=== PATIENT | male | born 1965 | race American Indian/Alaskan Native ===

== ENCOUNTER 2019-06-09 13:47 | Emergency (ER) | payer SELFPAY ==
[2019-06-09 14:08] VITALS: BP 118/87
--- NOTE | 2019-06-09 14:09 | Emergency Department Report ---
ED Asthma HPI - General Chief Complaint: Adult Asthma Stated Complaint: ASTHMA Time Seen by Provider: 06/09/19 13:49 Source: patient Mode of arrival: Ambulatory Limitations: No Limitations - History of Present Illness Initial Comments: This is a 53-year-old male nontoxic, well nourished in appearance, no acute signs of distress presents to the ED with c/o of acute on chronic asthma exacerbation. Patient stated he is out of her albuterol inhaler 1 month. Patient stated he receveid a breathing treatment in the ambulance and symptoms has resolved and subsided and now just requesting for albuerol inhaler refill. Patient denies any cough. Patient denies any sick contact. Patient denies any recent travels, long car, recent hospital stays. Patient denies any calf pain or calf tenderness. Patient denies any chest pain, short of breath, fever, chills, nausea, vomiting, hemoptysis, numbness, tingling, headache or stiff neck. Past medical history includes asthma. MD Complaint: shortness of breath, wheezing -: days(s) Asthma History: childhood onset Severity: mild Context: none known Associated Symptoms: none Treatments Prior to Arrival: inhaled bronchodilator - Related Data Current Asthma Therapy: none Previous Rx's Medication Instructions Recorded Last Taken Type Albuterol INH(or & Nicu Only) 2 puff IH QID PRN #8.5 gram 06/09/19 Unknown Rx [ProAir HFA Inhaler] Allergies Allergy/AdvReac Type Severity Reaction Status Date / Time No Known Allergies Allergy Unverified 06/09/19 13:54 ED Review of Systems ROS: Stated complaint: ASTHMA Other details as noted in HPI Constitutional: denies: chills, fever Eyes: denies: eye pain, eye discharge, vision change ENT: denies: ear pain, throat pain Respiratory: shortness of breath, wheezing. denies: cough Cardiovascular: denies: chest pain, palpitations Endocrine: no symptoms reported Gastrointestinal: denies: abdominal pain, nausea, diarrhea Genitourinary: denies: urgency, dysuria Musculoskeletal: denies: back pain, joint swelling, arthralgia Skin: denies: rash, lesions Neurological: denies: headache, weakness, paresthesias Psychiatric: denies: anxiety, depression Hematological/Lymphatic: denies: easy bleeding, easy bruising ED Past Medical Hx - Past Medical History Previous Medical History?: Yes Hx Diabetes: Yes Hx Asthma: Yes - Medications Home Medications: Home Medications Medication Instructions Recorded Confirmed Last Taken Type Albuterol INH(or & Nicu Only) 2 puff IH QID PRN #8.5 gram 06/09/19 Unknown Rx [ProAir HFA Inhaler] ED Physical Exam - General Limitations: No Limitations General appearance: alert, in no apparent distress - Head Head exam: Present: atraumatic, normocephalic - Eye Eye exam: Present: normal appearance - Neck Neck exam: Present: normal inspection, full ROM. Absent: tenderness, meningismus, lymphadenopathy - Respiratory Respiratory exam: Present: normal lung sounds bilaterally. Absent: respiratory distress, wheezes, rales, rhonchi, stridor, chest wall tenderness, accessory muscle use, decreased breath sounds, prolonged expiratory - Cardiovascular Cardiovascular Exam: Present: regular rate, normal rhythm, normal heart sounds. Absent: bradycardia, tachycardia, irregular rhythm, systolic murmur, diastolic murmur, rubs, gallop - Extremities Exam Extremities exam: Present: normal inspection - Back Exam Back exam: Present: normal inspection - Neurological Exam Neurological exam: Present: alert, oriented X3, normal gait - Psychiatric Psychiatric exam: Present: normal affect, normal mood - Skin Skin exam: Present: warm, dry, intact, normal color. Absent: rash ED Course - Reevaluation(s) Reevaluation #1: 06/09/19 14:09 Patient is speaking in full sentences with no signs of distress noted. ED Medical Decision Making - Medical Decision Making This is a 53-year-old male that presents with asthma exacerbation. Patient is stable and was examined by me. Patient did receive breathing treatment in EMS which patient the symptoms has resolved and subsided. Posttreatment and there is no wheezing upon auscultation. Patient is discharged with albuterol. Patient was referred to Follow-up with a primary care doctor in 3-5 days or if symptoms worsen and continue return to emergency room as soon as possible. At time of discharge, the patient does not seem toxic or ill in appearance. No acute signs of distress noted. Patient agrees to discharge treatment plan of care. No further questions noted by the patient. This chart is dictated with using [employer] Critical care attestation.: If time is entered above; I have spent that time in minutes in the direct care of this critically ill patient, excluding procedure time. ED Disposition Clinical Impression: Asthma exacerbation Qualifiers: Asthma severity: mild Disposition: DC-01 TO HOME OR SELFCARE Is pt being admited?: No Does the pt Need Aspirin: No Condition: Stable Instructions: Asthma (ED) Additional Instructions: Follow-up with a primary care doctor in 3-5 days or if symptoms worsen and continue return to emergency room as soon as possible. Prescriptions: Albuterol INH(or & Nicu Only) [ProAir HFA Inhaler] 2 puff IH QID PRN #8.5 gram PRN Reason: Shortness Of Breath Referrals: PRIMARY MD BRANDEN [Primary Care Provider] - 3-5 Days MYA WILSON MD [Staff Physician] - 3-5 Days [facility] [Provider Group] - 3-5 Days
== END 2019-06-09 14:30 | disposition home or self-care (01) ==
LOC: ED 13:47
DX: J45.901 Unspecified asthma with (acute) exacerbation (principal); E11.9 Type 2 diabetes mellitus without complications; Z79.899 Other long term (current) drug therapy
CPT/HCPCS: 99282

== ENCOUNTER 2019-06-28 05:13 | Emergency (ER) | payer SELFPAY ==
--- NOTE | 2019-06-28 05:35 | Emergency Department Report ---
Blank Doc - Documentation Documentation: Patient is a 53-year-old F [place] male who is presenting with asthma exacerb ation. Patient states symptoms are consistent with his asthma. He received 10 of albuterol 4 mg of magnesium Solu-Medrol prior to arrival. Patient is continued to have wheezing and tightness of the chest. Additional 7.5 of albuterol and 1 of Atrovent has been added and will will monitor the patient.
[2019-06-28] MEDS: ALBUTEROL 2.5 MG/3 ML NEBU IH ONE (05:54)
[2019-06-28] MEDS: IPRATROPIUM 0.02% NEBU 2.5 ML IH ONE (05:54)
[2019-06-28 05:57] LABS: Basophils % (Auto) 0.3 % (0.0-1.8); Eosinophils # (Auto) 0.3 K/mm3 (0.0-0.4); Eosinophils % (Auto) 3.4 % (0.0-4.3); Hematocrit 44.2 % (35.5-45.6); Hemoglobin 14.5 gm/dl (11.8-15.2); Lymphocytes # (Auto) 1.2 K/mm3 (1.2-5.4); Lymphocytes % (Auto) 14.5 % (13.4-35.0); Mean Corpuscular HGB Conc 33 % (32-34); Mean Corpuscular Volume 85 fl (84-94); Monocytes # (Auto) 0.4 K/mm3 (0.0-0.8); Monocytes % (Auto) 4.3 % (0.0-7.3); Platelet Count 188 K/mm3 (140-440); Red Blood Count 5.19 M/mm3 (3.65-5.03); Red Cell Distribution Width 13.4 % (13.2-15.2)
[2019-06-28 06:18] LABS: BUN/Creatinine Ratio 11; Blood Urea Nitrogen 12 mg/dL (9-20); Calcium 9.1 mg/dL (8.4-10.2); Hemolysis Index 2
[2019-06-28] MEDS ORDERED: EPINEPHrine/PF (1:1,000) 1 MG/1 ML INJ SUB-Q ONE (06:27)
[2019-06-28] MEDS ORDERED: SODIUM CHLORIDE 0.9% 500 ML 500 ML IV ONE (06:28)
--- NOTE | 2019-06-28 06:31 | Emergency Department Report ---
ED General Adult HPI - General Chief complaint: Adult Asthma Stated complaint: CRISTIANE PUI?: No Time Seen by Provider: 06/28/19 05:30 Source: patient, EMS ( EMS documentation not available at time of chart dictation ), RN notes reviewed, old records reviewed Mode of arrival: Wheelchair Limitations: No Limitations - History of Present Illness Initial comments: Patient is a 53-year-old gentleman who is not known to myself previously, states multiple recent negative tests for coronavirus, denies DVT and pulmonary embolism risk factors, has a past history of asthma and allergies, presenting to the ER with his reported typical asthma exacerbation secondary to allergies. He denies physical pain at this time. There is no complaint of headache, neck pain, chest pain, abdominal pain, urinary symptom, extremity weakness and or num bness, or pharyngeal pain. He was treated with steroids, magnesium, inhaler therapy prior to my personal evaluation. He reports moderate improvement in symptoms, but is still wheezing. There is no posterior leg pain and or leg swelling. Wheezing and shortness of breath have been constant for the past day and a half, they decreased with rest, medication, and worsened with exertion, and exposure to allergens. -: days(s) Severity scale (0 -10): 0 Quality: other Consistency: other Improves with: other Worsens with: other Associated Symptoms: other - Related Data Previous Rx's Medication Instructions Recorded Last Taken Type Albuterol INH(or & Nicu Only) 2 puff IH QID PRN #8.5 gram 06/09/19 Unknown Rx [ProAir HFA Inhaler] Albuterol Sulfate [Proair 90 mcg IH Q4HR PRN #2 aer.pow.ba 06/28/19 Unknown Rx Respiclick] Cetirizine HCl [Zyrtec 10mg tab] 10 mg PO QDAY #30 tablet 06/28/19 Unknown Rx EPINEPHrine [Epipen 2-Surinder] 0.3 mg IM DAILY PRN #2 ml 06/28/19 Unknown Rx predniSONE [Deltasone] 40 mg PO QDAY #8 tab 06/28/19 Unknown Rx Allergies Allergy/AdvReac Type Severity Reaction Status Date / Time No Known Allergies Allergy Unverified 06/09/19 13:54 ED Review of Systems ROS: Stated complaint: CRISTIANE Other details as noted in HPI Constitutional: denies: fever, malaise ENT: congestion Respiratory: shortness of breath, wheezing. denies: cough Cardiovascular: denies: syncope Gastrointestinal: denies: abdominal pain Genitourinary: as per HPI Musculoskeletal: as per HPI Skin: as per HPI Neurological: as per HPI Psychiatric: as per HPI Hematological/Lymphatic: as per HPI ED Past Medical Hx - Past Medical History Previous Medical History?: Yes Hx Diabetes: Yes Hx Asthma: Yes - Surgical History Past Surgical History?: No - Social History Smoking Status: Never Smoker - Medications Home Medications: Home Medications Medication Instructions Recorded Confirmed Last Taken Type Albuterol INH(or & Nicu Only) 2 puff IH QID PRN #8.5 gram 06/09/19 Unknown Rx [ProAir HFA Inhaler] Albuterol Sulfate [Proair 90 mcg IH Q4HR PRN #2 aer.pow.ba 06/28/19 Unknown Rx Respiclick] Cetirizine HCl [Zyrtec 10mg tab] 10 mg PO QDAY #30 tablet 06/28/19 Unknown Rx EPINEPHrine [Epipen 2-Surinder] 0.3 mg IM DAILY PRN #2 ml 06/28/19 Unknown Rx predniSONE [Deltasone] 40 mg PO QDAY #8 tab 06/28/19 Unknown Rx ED Physical Exam - General Limitations: No Limitations General appearance: alert, in no apparent distress - Head Head exam: Present: atraumatic, normocephalic - Eye Eye exam: Present: normal appearance, EOMI. Absent: nystagmus - ENT ENT exam: Present: normal exam, normal external ear exam - Neck Neck exam: Present: normal inspection, full ROM. Absent: tenderness, meningismus - Respiratory Respiratory exam: Present: wheezes, rhonchi. Absent: respiratory distress, rales, stridor - Cardiovascular Cardiovascular Exam: Present: normal rhythm, tachycardia, normal heart sounds. Absent: systolic murmur, diastolic murmur, rubs, gallop - GI/Abdominal GI/Abdominal exam: Present: soft. Absent: distended, tenderness, guarding, rebound, rigid, pulsatile mass - Rectal Rectal exam: Present: deferred - Extremities Exam Extremities exam: Present: normal inspection, full ROM, other (2+ pulses noted in the bilateral upper and lower extremities. There is no palpable cord. negative Homans sign. Muscular compartments are soft. The pelvis is stable.). Absent: pedal edema, calf tenderness - Back Exam Back exam: Present: normal inspection. Absent: tenderness, CVA tenderness (R), CVA tenderness (L), paraspinal tenderness, vertebral tenderness - Neurological Exam Neurological exam: Present: alert, other (No facial droop. Tongue midline. Extraocular movements intact bilaterally. Facial sensation intact to light touch in V1, V2, V3 distribution bilaterally. 5 and a 5 strength in 4 extremities. Sensation intact to light touch in 4 extremities.). Absent: motor sensory deficit - Psychiatric Psychiatric exam: Present: normal affect, normal mood - Skin Skin exam: Present: warm, dry, intact, normal color. Absent: rash ED Course Vital Signs 06/28/19 06/28/19 06/28/19 05:14 05:21 05:26 Temperature 98.8 F 98.4 F Pulse Rate 126 H 111 H Pulse Rate [ Bilateral] Respiratory 20 20 20 Rate Respiratory Rate [Bilateral ] Blood Pressure 152/90 Blood Pressure 138/88 [Left] O2 Sat by Pulse 97 97 95 Oximetry 06/28/19 05:56 Temperature Pulse Rate Pulse Rate [ 105 H Bilateral] Respiratory Rate Respiratory 22 Rate [Bilateral ] Blood Pressure Blood Pressure [Left] O2 Sat by Pulse Oximetry - Reevaluation(s) Reevaluation #1: 06/28/19 06:30 Differential diagnosis, including but not limited to: Asthma, seasonal allergies Assessment and plan: 53-year-old gentleman, without fever, cough, reports multiple negative recent tests for coronavirus, history of chronic allergies, and asthma, presenting to the ER today with a complaint of painless shortness of breath, wheezing, denies DVT and pulmonary embolism risk factors, appears to be fairly comfortable on the stretcher, playing on his cellular phone, although still wheezing. He is still receiving nebulizer therapy. He was given steroids and magnesium prior to my personal evaluation. We will continue to treat him, give subcutaneous epinephrine, and reassess. Tachycardia likely secondary to the aforementioned interventions. 06/28/19 06:31 Laboratory studies were sent prior to my personal evaluation. Reevaluation #2: 06/28/19 07:31 Patient reassessed. Sleeping on the stretcher. Work of breathing improved. Wheezing improved. States he feels ready to go. Does not require epinephrine at this time. Return precautions are reviewed ED Medical Decision Making - Lab Data Result diagrams: 06/28/19 05:43 06/28/19 05:43 Vital Signs 06/28/19 06/28/19 06/28/19 05:14 05:21 05:26 Temperature 98.8 F 98.4 F Pulse Rate 126 H 111 H Pulse Rate [ Bilateral] Respiratory 20 20 20 Rate Respiratory Rate [Bilateral ] Blood Pressure 152/90 Blood Pressure 138/88 [Left] O2 Sat by Pulse 97 97 95 Oximetry 06/28/19 05:56 Temperature Pulse Rate Pulse Rate [ 105 H Bilateral] Respiratory Rate Respiratory 22 Rate [Bilateral ] Blood Pressure Blood Pressure [Left] O2 Sat by Pulse Oximetry Lab Results 06/28/19 06/28/19 Range/Units 05:43 05:43 WBC 8.6 (4.5-11.0) K/mm3 RBC 5.19 H (3.65-5.03) M/mm3 Hgb 14.5 (11.8-15.2) gm/dl Hct 44.2 (35.5-45.6) % MCV 85 (84-94) fl MCH 28 (28-32) pg MCHC 33 (32-34) % RDW 13.4 (13.2-15.2) % Plt Count 188 (140-440) K/mm3 Lymph % (Auto) 14.5 (13.4-35.0) % [place] % (Auto) 4.3 (0.0-7.3) % Eos % (Auto) 3.4 (0.0-4.3) % Baso % (Auto) 0.3 (0.0-1.8) % Lymph # 1.2 (1.2-5.4) K/mm3 [place] # 0.4 (0.0-0.8) K/mm3 Eos # 0.3 (0.0-0.4) K/mm3 Baso # 0.0 (0.0-0.1) K/mm3 Seg Neutrophils % 77.5 H (40.0-70.0) % Seg Neutrophils # 6.7 (1.8-7.7) K/mm3 Sodium 147 H (137-145) mmol/L Potassium 3.6 (3.6-5.0) mmol/L Chloride 106.0 (98-107) mmol/L Carbon Dioxide 28 (22-30) mmol/L Anion Gap 17 mmol/L BUN 12 (9-20) mg/dL Creatinine 1.1 (0.8-1.5) mg/dL Estimated GFR > 60 ml/min BUN/Creatinine Ratio 11 % Glucose 173 H (75-100) mg/dL Calcium 9.1 (8.4-10.2) mg/dL Critical Care Time: Yes Critical care time in (mins) excluding proc time.: 35 Critical care attestation.: If time is entered above; I have spent that time in minutes in the direct care of this critically ill patient, excluding procedure time. ED Disposition Clinical Impression: Reactive airway disease Qualifiers: Asthma severity: unspecified severity Asthma persistence: unspecified Asthma complication type: uncomplicated Qualified Code(s): J45.909 - Unspecified asthma, uncomplicated Disposition: TO HOME OR SELFCARE Is pt being admited?: No Does the pt Need Aspirin: No Condition: Stable Instructions: Asthma (ED) Additional Instructions: Make certain to wash hands with soap and water often and frequently. Do not touch hands to face, eyes, or mouth. Take the prescribed medications as needed and directed. Follow-up with a primary care doctor within the next 5 to 7 days for repeat checkup and evaluation. Return to the emergency room right away with new, worsened or different symptoms, or symptoms not present on the initial emergency room evaluation. Return to the emergency room right away with projectile vomiting, change in mental status, confusion, inability to speak, inability to breathe, or severe shortness of breath. Use epinephrine pen if patient develops inability to speak, or inability to breathe. If any of these symptoms develop, use the epinephrine pen as directed, and contact emergency medical services right away. Referrals: JIMENA PIEMNTEL MD [Primary Care Provider] - 3-5 Days MYA WILSON MD [Staff Physician] - 3-5 Days
[2019-06-28 08:06] VITALS: BP 114/80
== END 2019-06-28 08:04 | disposition home or self-care (01) ==
LOC: ED 05:13
DX: J45.909 Unspecified asthma, uncomplicated (principal); E11.9 Type 2 diabetes mellitus without complications; Z79.899 Other long term (current) drug therapy
CPT/HCPCS: 36415; 80048; 85025; 94644

== ENCOUNTER 2019-10-23 10:51 | Emergency (ER) | payer SELFPAY ==
[2019-10-23 11:10] VITALS: BP 113/77
--- NOTE | 2019-10-23 11:44 | Emergency Department Report ---
ED ENT HPI - General Chief complaint: Earache Stated complaint: EAR INFECTION Time Seen by Provider: 10/23/19 11:23 Source: patient Mode of arrival: Ambulatory Limitations: No Limitations - History of Present Illness Initial comments: 54-year-old -Iranian male presents to the emergency room for left ear drainage for 3 days. Patient denies any pain. Patient denies any fever. Denies any trauma. He does report a history of diabetes on insulin does not have a primary care provider. He does check his blood sugar was 130 this morning. He has no known drug allergies. Onset/Timin -: days(s) Location: L ear Severity: mild Improves with: none Worsens with: none Associated Symptoms: hearing loss. denies: fever, pain with swallowing, sore throat, tinnitus - Related Data Previous Rx's Medication Instructions Recorded Last Taken Type Albuterol Mdi (or & Nicu Only) 2 puff IH QID PRN #8.5 gram 06/09/19 Unknown Rx [ProAir HFA Inhaler] Albuterol Sulfate [Proair 90 mcg IH Q4HR PRN #2 aer.pow.ba 06/28/19 Unknown Rx Respiclick] Cetirizine HCl [Zyrtec 10mg tab] 10 mg PO QDAY #30 tablet 06/28/19 Unknown Rx EPINEPHrine [Epipen 2-Surinder] 0.3 mg IM DAILY PRN #2 ml 06/28/19 Unknown Rx predniSONE [Deltasone] 40 mg PO QDAY #8 tab 06/28/19 Unknown Rx Ciprofloxacin HCl [Ciprofloxacin 500 mg PO Q12HR #20 tab 09/22/19 Unknown Rx TAB] traMADoL [Ultram] 50 mg PO Q6HR PRN #14 tablet 09/22/19 Unknown Rx Amoxicillin/K Clav Tab [Augmentin 1 tab PO Q12HR 7 Days #14 tab 10/23/19 Unknown Rx 875 mg] Allergies Allergy/AdvReac Type Severity Reaction Status Date / Time No Known Allergies Allergy Verified 09/22/19 13:15 ED Dental HPI - General Chief complaint: Earache Stated complaint: EAR INFECTION Time Seen by Provider: 10/23/19 11:23 Source: patient Mode of arrival: Ambulatory Limitations: No Limitations - Related Data Previous Rx's Medication Instructions Recorded Last Taken Type Albuterol Mdi (or & Nicu Only) 2 puff IH QID PRN #8.5 gram 04/12/20 Unknown Rx [ProAir HFA Inhaler] Albuterol Sulfate [Proair 90 mcg IH Q4HR PRN #2 aer.pow.ba 06/28/19 Unknown Rx Respiclick] Cetirizine HCl [Zyrtec 10mg tab] 10 mg PO QDAY #30 tablet 06/28/19 Unknown Rx EPINEPHrine [Epipen 2-Surinder] 0.3 mg IM DAILY PRN #2 ml 06/28/19 Unknown Rx predniSONE [Deltasone] 40 mg PO QDAY #8 tab 06/28/19 Unknown Rx Ciprofloxacin HCl [Ciprofloxacin 500 mg PO Q12HR #20 tab 09/22/19 Unknown Rx TAB] traMADoL [Ultram] 50 mg PO Q6HR PRN #14 tablet 09/22/19 Unknown Rx Amoxicillin/K Clav Tab [Augmentin 1 tab PO Q12HR 7 Days #14 tab 10/23/19 Unknown Rx 875 mg] Allergies Allergy/AdvReac Type Severity Reaction Status Date / Time No Known Allergies Allergy Verified 09/22/19 13:15 ED Review of Systems ROS: Stated complaint: EAR INFECTION Other details as noted in HPI Comment: All other systems reviewed and negative ED Past Medical Hx - Past Medical History Hx Diabetes: Yes Hx Asthma: Yes - Surgical History Additional Surgical History: ARM - Social History Smoking Status: Current Every Day Smoker - Medications Home Medications: Home Medications Medication Instructions Recorded Confirmed Last Taken Type Albuterol Mdi (or & Nicu Only) 2 puff IH QID PRN #8.5 gram 06/09/19 Unknown Rx [ProAir HFA Inhaler] Albuterol Sulfate [Proair 90 mcg IH Q4HR PRN #2 aer.pow. 06/28/19 Unknown Rx Respiclick] Cetirizine HCl [Zyrtec 10mg tab] 10 mg PO QDAY #30 tablet 06/28/19 Unknown Rx EPINEPHrine [Epipen 2-Surinder] 0.3 mg IM DAILY PRN #2 ml 06/28/19 Unknown Rx predniSONE [Deltasone] 40 mg PO QDAY #8 tab 06/28/19 Unknown Rx Ciprofloxacin HCl [Ciprofloxacin 500 mg PO Q12HR #20 tab 09/22/19 Unknown Rx TAB] traMADoL [Ultram] 50 mg PO Q6HR PRN #14 tablet 09/22/19 Unknown Rx Amoxicillin/K Clav Tab [Augmentin 1 tab PO Q12HR 7 Days #14 tab 10/23/19 Unknown Rx 875 mg] ED Physical Exam - General Limitations: No Limitations General appearance: alert, in no apparent distress - Head Head exam: Present: atraumatic, normocephalic - Expanded ENT Exam Expanded TM/Canal exam: Loss of Landmarks: Left TM (Tympanic perforation) - Neck Neck exam: Present: full ROM - Neurological Exam Neurological exam: Present: alert, oriented X3, normal gait - Psychiatric Psychiatric exam: Present: normal affect, normal mood - Skin Skin exam: Present: warm, dry, intact, normal color. Absent: rash ED Course Vital Signs 10/23/19 11:07 Temperature 97.9 F Pulse Rate 96 H Respiratory 16 Rate Blood Pressure 113/77 [Right] O2 Sat by Pulse 100 Oximetry ED Medical Decision Making - Medical Decision Making 54-year-old -Iranian male presents to the emergency room for left ear drainage for 3 days. Patient denies any pain. Patient denies any fever. Denies any trauma. He does report a history of diabetes on insulin does not have a primary care provider. He does check his blood sugar was 130 this morning. He has no known drug allergies. Discussed with patient he needs to follow-up with her ear nose and throat provider that he does have a tympanic perforation. I will cover him with Augmentin 875 p.o. twice daily for 7 days. Critical care attestation.: If time is entered above; I have spent that time in minutes in the direct care of this critically ill patient, excluding procedure time. ED Disposition Clinical Impression: Perforation of left tympanic membrane Disposition: DC-01 TO HOME OR SELFCARE Is pt being admited?: No Does the pt Need Aspirin: No Condition: Stable Instructions: Ruptured Eardrum (ED) Additional Instructions: Complete your antibiotics as prescribed. Is very important for you to follow-up with the ear nose and throat provider as to hold in your eardrum may need to be surgically repaired. I have listed to ear nose and throat facilities to follow-up with. Please do not put any foreign object into your ear. Try to prevent water getting into your ear when you bathe or shower. Prescriptions: Amoxicillin/K Clav Tab [Augmentin 875 mg] 1 tab PO Q12HR 7 Days #14 tab Referrals: ENT [facility] [Provider Group] - 3-5 Days [facility] [Provider Group] - 3-5 Days Forms: Work/School Release Form(ED)
== END 2019-10-23 11:50 | disposition home or self-care (01) ==
LOC: ED 10:51
DX: S09.22XA Traumatic rupture of left ear drum, initial encounter (principal); E11.9 Type 2 diabetes mellitus without complications; J45.909 Unspecified asthma, uncomplicated; F17.200 Nicotine dependence, unspecified, uncomplicated; X58.XXXA Exposure to other specified factors, initial encounter; Y93.89 Activity, other specified; Y92.89 Other specified places as the place of occurrence of the external cause; Y99.8 Other external cause status
CPT/HCPCS: 99282

== ENCOUNTER 2020-01-23 11:59 | Emergency (ER) | payer SELFPAY ==
[2020-01-23 12:13] VITALS: BP 134/90
--- NOTE | 2020-01-23 12:41 | Emergency Department Report ---
ED Recheck HPI - General Chief Complaint: Adult Asthma Stated Complaint: ASTHMA Time Seen by Provider: 01/23/20 12:35 Source: patient Mode of arrival: Ambulatory Limitations: No Limitations - History of Present Illness Initial Comments: Patient is a 54-year-old male presents emergency room with complaints of needing a medication refill. He states that he ran out of his asthma medications yesterday. He states he uses an albuterol inhaler and nebulizer treatments. He states that he ran out of his inhaler and his solution. He states that he does not currently have a primary care physician. He denies any cough, fever, nausea, vomiting, diarrhea. He denies any shortness of breath or chest pain currently. He states he also has a past medical history of diabetes and reports that his sugars have been running normally. No allergies to medications. - Related Data Previous Rx's Medication Instructions Recorded Last Taken Type Albuterol Mdi (or & Nicu Only) 2 puff IH QID PRN #8.5 gram 06/09/19 Unknown Rx [ProAir HFA Inhaler] Albuterol Sulfate [Proair 90 mcg IH Q4HR PRN #2 aer.pow.ba 06/28/19 Unknown Rx Respiclick] Cetirizine HCl [Zyrtec 10mg tab] 10 mg PO QDAY #30 tablet 06/28/19 Unknown Rx EPINEPHrine [Epipen 2-Surinder] 0.3 mg IM DAILY PRN #2 ml 06/28/19 Unknown Rx predniSONE [Deltasone] 40 mg PO QDAY #8 tab 06/28/19 Unknown Rx Ciprofloxacin HCl [Ciprofloxacin 500 mg PO Q12HR #20 tab 09/22/19 Unknown Rx TAB] traMADoL [Ultram] 50 mg PO Q6HR PRN #14 tablet 09/22/19 Unknown Rx Amoxicillin/K Clav Tab [Augmentin 1 tab PO Q12HR 7 Days #14 tab 10/23/19 Unknown Rx 875 mg] ALBUTEROL NEB's [Proventil 0.083% 2.5 mg IH TID PRN #1 box 01/23/20 Unknown Rx NEBS] Albuterol Sulfate [Proventil Hfa] 6.7 gm IH TID #1 hfa.aer.ad 01/23/20 Unknown Rx Allergies Allergy/AdvReac Type Severity Reaction Status Date / Time No Known Allergies Allergy Verified 09/22/19 13:15 ED Review of Systems ROS: Stated complaint: ASTHMA Other details as noted in HPI Comment: All other systems reviewed and negative ED Past Medical Hx - Past Medical History Previous Medical History?: Yes Hx Diabetes: Yes Hx Asthma: Yes - Surgical History Additional Surgical History: ARM - Social History Smoking Status: Never Smoker Substance Use Type: None - Medications Home Medications: Home Medications Medication Instructions Recorded Confirmed Last Taken Type Albuterol Mdi (or & Nicu Only) 2 puff IH QID PRN #8.5 gram 06/09/19 Unknown Rx [ProAir HFA Inhaler] Albuterol Sulfate [Proair 90 mcg IH Q4HR PRN #2 aer.pow.ba 06/28/19 Unknown Rx Respiclick] Cetirizine HCl [Zyrtec 10mg tab] 10 mg PO QDAY #30 tablet 06/28/19 Unknown Rx EPINEPHrine [Epipen 2-Surinder] 0.3 mg IM DAILY PRN #2 ml 06/28/19 Unknown Rx predniSONE [Deltasone] 40 mg PO QDAY #8 tab 06/28/19 Unknown Rx Ciprofloxacin HCl [Ciprofloxacin 500 mg PO Q12HR #20 tab 09/22/19 Unknown Rx TAB] traMADoL [Ultram] 50 mg PO Q6HR PRN #14 tablet 09/22/19 Unknown Rx Amoxicillin/K Clav Tab [Augmentin 1 tab PO Q12HR 7 Days #14 tab 10/23/19 Unknown Rx 875 mg] ALBUTEROL NEB's [Proventil 0.083% 2.5 mg IH TID PRN #1 box 01/23/20 Unknown Rx NEBS] Albuterol Sulfate [Proventil Hfa] 6.7 gm IH TID #1 hfa.aer.ad 01/23/20 Unknown Rx ED Physical Exam - General Limitations: No Limitations General appearance: alert, in no apparent distress - Head Head exam: Present: atraumatic, normocephalic - Eye Eye exam: Present: normal appearance - ENT ENT exam: Present: mucous membranes moist - Respiratory Respiratory exam: Present: normal lung sounds bilaterally. Absent: respiratory distress, wheezes, rales, rhonchi, stridor, chest wall tenderness, accessory muscle use, decreased breath sounds, prolonged expiratory - Cardiovascular Cardiovascular Exam: Present: regular rate, normal rhythm, normal heart sounds. Absent: systolic murmur, diastolic murmur, rubs, gallop - Neurological Exam Neurological exam: Present: alert, oriented X3 - Psychiatric Psychiatric exam: Present: normal affect, normal mood - Skin Skin exam: Present: warm, dry, intact ED Course Vital Signs 01/23/20 12:10 Temperature 98 F Pulse Rate 103 H Respiratory 20 Rate Blood Pressure 134/90 O2 Sat by Pulse 96 Oximetry ED Recheck MDM - Medical Decision Making Patient is a 54-year-old male presents emergency room with complaints of needing a medication refill. He states that he ran out of his asthma medications yes terday. He states he uses an albuterol inhaler and nebulizer treatments. He states that he ran out of his inhaler and his solution. He states that he does not currently have a primary care physician. He denies any cough, fever, nausea, vomiting, diarrhea. He denies any shortness of breath or chest pain currently. He states he also has a past medical history of diabetes and reports that his sugars have been running normally. No allergies to medications. Vitals are stable. No active exacerbation at this time. Breath sounds are clear bilaterally. No clinical signs of bacterial bronchitis or pneumonia. Patient presents for refill of his medications. Patient given prescription for albuterol inhaler and nebulizer solution. Advised patient Please take medication as prescribed. Follow-up with your primary care doctor. Return to emergency room for any new or worsening symptoms. Critical care attestation.: If time is entered above; I have spent that time in minutes in the direct care of this critically ill patient, excluding procedure time. ED Disposition Clinical Impression: Medication refill, History of asthma Disposition: - TO HOME OR SELFCARE Is pt being admited?: No Does the pt Need Aspirin: No Condition: Stable Instructions: Asthma, Adult Additional Instructions: Please take medication as prescribed. Follow-up with your primary care doctor. Return to emergency room for any new or worsening symptoms. Prescriptions: ALBUTEROL NEB's [Proventil 0.083% NEBS] 2.5 mg IH TID PRN #1 box PRN Reason: Wheezing Albuterol Sulfate [Proventil Hfa] 6.7 gm IH TID #1 hfa.aer.ad Referrals: MYA WILSON MD [Staff Physician] - 2-3 Days [facility] [Provider Group] - 2-3 Days [facility], [LAB/CONTRACT] - 2-3 Days Time of Disposition: 12:40 Print Language: FIJIAN
== END 2020-01-23 13:12 | disposition home or self-care (01) ==
LOC: ED 11:59
DX: J45.909 Unspecified asthma, uncomplicated (principal); Z76.0 Encounter for issue of repeat prescription; E11.9 Type 2 diabetes mellitus without complications; Z79.899 Other long term (current) drug therapy
CPT/HCPCS: 99282

== ENCOUNTER 2020-03-24 12:52 | Emergency (ER) | payer SELFPAY ==
--- NOTE | 2020-03-24 13:06 | Event Note ---
ED Screening Note ED Screening Note: hx dm and asthma rx novalog bid 20 albuterol psh none pcp none no cig/etoh/drugs dental pain BS 102 this AM This initial assessment/diagnostic orders/clinical plan/treatment(s) is/are subject to change based on patients health status, clinical progression and re- assessment by fellow clinical providers in the ED. Further treatment and workup at subsequent clinical providers discretion. Patient/guardian urged not to elope from the ED as their condition may be serious if not clinically assessed and managed. Initial orders include: out of meds
--- NOTE | 2020-03-24 13:11 | Emergency Department Report ---
ED General Adult HPI - General Stated complaint: TOOTHACHE PUI?: No Time Seen by Provider: 03/24/20 13:04 Source: patient Mode of arrival: Ambulatory Limitations: No Limitations - History of Present Illness Initial comments: Patient is a 54-year-old male who comes to the emergency room with dental pain. He adds that he is diabetic and has asthma and is out of his medications. I explained to the patient that dental caries can become life-threatening untreated especially in the context of a diabetic off medications. Vital signs are normal as documented by the triage nurse. Patient has no fever no hypotension or tachycardia. Patient is checking his blood sugar at home and it was 104 this morning Patient has no dental appointment or dentist. Patient denies chest pain, shortness of breath, fever or chills. He denies cough. He denies exposure to Covid. Vital signs are stable. ABCs are intact. There is no trismus on exam. Ambulatory nonill and nontoxic on exam in triage -: Gradual, days(s) Consistency: constant Improves with: none Worsens with: none Associated Symptoms: denies other symptoms Treatments Prior to Arrival: none - Related Data Previous Rx's Medication Instructions Recorded Last Taken Type ALBUTEROL NEB's [Proventil 0.083% 2.5 mg IH TID PRN #1 box 03/24/20 Unknown Rx NEBS] Albuterol Mdi (or & Nicu Only) 2 puff IH QID PRN #8.5 gram 03/24/20 Unknown Rx [ProAir HFA Inhaler] Amoxicillin [Trimox CAP] 500 mg PO BID #20 capsule 03/24/20 Unknown Rx Insulin Aspart (Nf) [Novolog] 20 units SQ BID #100 units 03/24/20 Unknown Rx Allergies Allergy/AdvReac Type Severity Reaction Status Date / Time No Known Allergies Allergy Verified 09/22/19 13:15 ED Review of Systems ROS: Stated complaint: TOOTHACHE Other details as noted in HPI Comment: All other systems reviewed and negative ED Past Medical Hx - Past Medical History Hx Diabetes: Yes Hx Asthma: Yes - Surgical History Past Surgical History?: Yes Additional Surgical History: ARM - Family History Family history: no significant - Social History Smoking Status: Never Smoker Substance Use Type: None - Medications Home Medications: Home Medications Medication Instructions Recorded Confirmed Last Taken Type ALBUTEROL NEB's [Proventil 0.083% 2.5 mg IH TID PRN #1 box 03/24/20 Unknown Rx NEBS] Albuterol Mdi (or & Nicu Only) 2 puff IH QID PRN #8.5 gram 03/24/20 Unknown Rx [ProAir HFA Inhaler] Amoxicillin [Trimox CAP] 500 mg PO BID #20 capsule 03/24/20 Unknown Rx Insulin Aspart (Nf) [Novolog] 20 units SQ BID #100 units 03/24/20 Unknown Rx ED Physical Exam - General Limitations: No Limitations General appearance: alert, in no apparent distress - Head Head exam: Present: atraumatic, normocephalic - Eye Eye exam: Present: normal appearance - ENT ENT exam: Present: mucous membranes moist - Expanded ENT Exam Expanded Mouth exam: Present: normal external inspection Teeth exam: Present: dental caries 1 - Other (caries) - Neck Neck exam: Present: normal inspection - Respiratory Respiratory exam: Present: normal lung sounds bilaterally. Absent: respiratory distress - Cardiovascular Cardiovascular Exam: Present: regular rate, normal rhythm. Absent: systolic murmur, diastolic murmur, rubs, gallop - GI/Abdominal GI/Abdominal exam: Present: soft, normal bowel sounds - Rectal Rectal exam: Present: deferred - Extremities Exam Extremities exam: Present: normal inspection - Back Exam Back exam: Present: normal inspection - Neurological Exam Neurological exam: Present: alert, oriented X3 - Psychiatric Psychiatric exam: Present: normal affect, normal mood - Skin Skin exam: Present: warm, dry, intact, normal color. Absent: rash ED Medical Decision Making - Medical Decision Making Patient has been educated on the importance of follow-up for these caries. It seems in the EMR that he has been here numerous times with similar same complaints. He does not follow-up. I have explained to him the risk of endocarditis and other serious infections given his past medical history Patient being discharged home with his chronic medications as well as antibiotic s for his dental infection. Have given him referrals to dental clinics and primary care is in the area. Patient verbalizes understanding of discharge plan of care. I have told the patient that he should consider this a courtesy refill and to not use the emergency room as a means to get his medications. He verbalizes understanding. - Differential Diagnosis caries/nonadh/med refill for dm/htn Critical care attestation.: If time is entered above; I have spent that time in minutes in the direct care of this critically ill patient, excluding procedure time. ED Disposition Clinical Impression: Pain, dental, Medication refill, History of diabetes mellitus, History of asthma Disposition: DC TO HOME OR SELFCARE Is pt being admited?: No Does the pt Need Aspirin: No Condition: Stable Instructions: Diet and Dental Disease Additional Instructions: see pcp referral below make appnt [place] Prescriptions: Insulin Aspart (Nf) [Novolog] 20 units SQ BID #100 units Albuterol Mdi (or & Nicu Only) [ProAir HFA Inhaler] 2 puff IH QID PRN #8.5 gram PRN Reason: Shortness Of Breath ALBUTEROL NEB's [Proventil 0.083% NEBS] 2.5 mg IH TID PRN #1 box PRN Reason: Wheezing Amoxicillin [Trimox CAP] 500 mg PO BID #20 capsule Referrals: MYA WILSON MD [Staff Physician] [facility] - [facility]5 Days [facility] [Outside] - 3-5 Days Forms: Work/School Release Form Time of Disposition: 13:10
== END 2020-03-24 13:15 | disposition home or self-care (01) ==
LOC: ED 12:52
DX: K08.89 Other specified disorders of teeth and supporting structures (principal); E11.9 Type 2 diabetes mellitus without complications; J45.909 Unspecified asthma, uncomplicated; Z98.890 Other specified postprocedural states; Z79.899 Other long term (current) drug therapy; Z76.0 Encounter for issue of repeat prescription
CPT/HCPCS: 99281

== ENCOUNTER 2020-04-01 12:52 | Emergency (ER) | payer SELFPAY ==
[2020-04-01 13:34] VITALS: BP 134/88
--- NOTE | 2020-04-01 14:46 | Emergency Department Report ---
Chief Complaint: Headache Stated Complaint: HEAD PAIN - HPI History of Present Illness: 54-year-old -[place] male presents to the emergency room for headache that started last night but did not take anything for it. Patient states he woke up this morning still had the headache did not take anything for checked his blood sugar and it was 86. Patient states he went to work in checked his blood sugar and it was 115 and still had a slight headache. Patient still did not take anything for his headache. Patient denies any trauma to his head denies any ringing of his ear denies any visual change. Patient states that his job symptom here to be cleared. Patient denies any new weaknesses no nausea no vomiting no dizziness no room spinning. - Exam Vital Signs: Vital Signs 04/01/20 13:32 Temperature 98.6 F Pulse Rate 91 H Respiratory 18 Rate Blood Pressure 134/88 [Right] O2 Sat by Pulse 96 Oximetry Physical Exam: Gen: alert oriented NAD HEENT: Left ear tympanic perforation chronic Cardic: regular rate and rhythm no murmurs appreciated Resp: Clear to auscultation bilateral no wheezing no rales or rhonchi. Abdomen: Soft nontender nondistended normal bowel sounds. Mini neuro: Normal finger to nose exam, [id number] normal, Romberg neg, strengh 4/5 all extrimities, Alert and oriented time 3 Crainal nerve II-IIX intact MSE screening note: Focused history and physical exam performed. Due to findings the following was ordered: ED Disposition for MSE Clinical Impression: Head ache Disposition: DC-01 TO HOME OR SELFCARE Is pt being admited?: No Does the pt Need Aspirin: No Condition: Stable Additional Instructions: Please try taking Tylenol or ibuprofen for pain. Increase your water intake advance your diet as tolerated. Referrals: PRIMARY MD BRANDEN [Primary Care Provider] - 3-5 Days MYA WILSON MD [Staff Physician] - 3-5 Days [facility] [Provider Group] - 3-5 Days Forms: Work/School Release Form(ED)
== END 2020-04-01 17:19 | disposition left against medical advice (07) ==
LOC: ED 12:52
DX: R51.9 Headache, unspecified (principal)
CPT/HCPCS: 82962; 99283

== ENCOUNTER 2020-05-27 14:20 | Emergency (ER) | payer SELFPAY ==
[2020-05-27 14:51] VITALS: BP 117/73
[2020-05-27] MEDS ORDERED: dexAMETHasone 20 MG/5 ML VIAL IM ONE (15:10)
[2020-05-27] MEDS ORDERED: ALBUTEROL 2.5 MG/3 ML NEBU IH ONE ×2 (15:10→15:33)
[2020-05-27] MEDS ORDERED: IPRATROPIUM 0.02% NEBU 2.5 ML IH ONE ×2 (15:10→15:33)
--- NOTE | 2020-05-27 15:32 | Emergency Department Report ---
ED General Adult HPI - General Chief complaint: Adult Asthma Stated complaint: CRISTIANE Time Seen by Provider: 05/27/20 15:26 Source: patient Mode of arrival: Ambulatory Limitations: No Limitations - Related Data Previous Rx's Medication Instructions Recorded Last Taken Type ALBUTEROL NEB's [Proventil 0.083% 2.5 mg IH TID PRN #1 box 03/24/20 Unknown Rx NEBS] Albuterol Mdi (or & Nicu Only) 2 puff IH QID PRN #8.5 gram 03/24/20 Unknown Rx [ProAir HFA Inhaler] Amoxicillin [Trimox CAP] 500 mg PO BID #20 capsule 03/24/20 Unknown Rx Insulin Aspart (Nf) [Novolog] 20 units SQ BID #100 units 03/24/20 Unknown Rx Allergies Allergy/AdvReac Type Severity Reaction Status Date / Time No Known Allergies Allergy Verified 04/01/20 13:30 ED Review of Systems ROS: Stated complaint: CRISTIANE Other details as noted in HPI ED Past Medical Hx - Past Medical History Previous Medical History?: Yes Hx Diabetes: Yes Hx Asthma: Yes - Surgical History Additional Surgical History: ARM - Social History Smoking Status: Never Smoker Substance Use Type: None - Medications Home Medications: Home Medications Medication Instructions Recorded Confirmed Last Taken Type ALBUTEROL NEB's [Proventil 0.083% 2.5 mg IH TID PRN #1 box 03/24/20 Unknown Rx NEBS] Albuterol Mdi (or & Nicu Only) 2 puff IH QID PRN #8.5 gram 03/24/20 Unknown Rx [ProAir HFA Inhaler] Amoxicillin [Trimox CAP] 500 mg PO BID #20 capsule 03/24/20 Unknown Rx Insulin Aspart (Nf) [Novolog] 20 units SQ BID #100 units 03/24/20 Unknown Rx ED Physical Exam - General Limitations: No Limitations ED Course Vital Signs 05/27/20 14:50 Temperature 97.3 F L Pulse Rate 117 H Respiratory 18 Rate Blood Pressure 117/73 [Right] O2 Sat by Pulse 94 Oximetry Critical care attestation.: If time is entered above; I have spent that time in minutes in the direct care of this critically ill patient, excluding procedure time. ED Disposition Condition: Stable
[2020-05-27] MEDS ORDERED: predniSONE 20 MG TAB PO ONE (15:39)
--- NOTE | 2020-05-27 15:40 | Emergency Department Report ---
Minor Respiratory - HPI Chief Complaint: Adult Asthma Stated Complaint: CRISTIANE Time Seen by Provider: 05/27/20 15:26 Duration: Today Pain Location: Chest Severity: moderate Minor Respiratory: Yes Able to Tolerate Fluids, No Rhinorrhea, No Sore Throat, No Ear Pain, No Cough, No Sick Contacts, No Hemoptysis, No Chest Pain, No Shortness of Breath, No Fever Other History: Patient is a 54-year-old -Y[place]i male. He is known to us. Patient has a history of asthma. He has run out of his inhaler and his albuterol nebulizer. He states that he used the last of them prior to arrival. It is pollen season in [place] and he has exacerbations every year at this time. Heart rate is tachycardic but this is after using the nebs. He denies chest pain or shortness of breath. He denies recent fever or chills. He denies exposure to Covid. Patient is ambulatory nontoxic and [id number] on arrival to [facility]. He is focused on getting to work by 5:00. Patient refusing chest x-ray. He really just wants medication refills. ED Review of Systems ROS: Stated complaint: CRISTIANE Other details as noted in HPI Comment: All other systems reviewed and negative ED Past Medical Hx - Past Medical History Previous Medical History?: Yes Hx Diabetes: Yes Hx Asthma: Yes - Surgical History Past Surgical History?: No Additional Surgical History: ARM - Family History Family history: no significant - Social History Smoking Status: Never Smoker Substance Use Type: None - Medications Home Medications: Home Medications Medication Instructions Recorded Confirmed Last Taken Type Amoxicillin [Trimox CAP] 500 mg PO BID #20 capsule 03/24/20 Unknown Rx ALBUTEROL NEB's [Proventil 0.083% 2.5 mg IH TID PRN #1 box 05/27/20 Unknown Rx NEBS] Albuterol Mdi (or & Nicu Only) 2 puff IH QID PRN #8.5 gram 05/27/20 Unknown Rx [ProAir HFA Inhaler] Cetirizine HCl [ZyrTEC] 10 mg PO DAILY #30 capsule 05/27/20 Unknown Rx Fluticasone [Flonase] 1 spray NS QDAY #1 bottle 05/27/20 Unknown Rx predniSONE [Deltasone] 20 mg PO DAILY #5 tablet 05/27/20 Unknown Rx Minor Respiratory Exam - Exam General: Vital signs noted. No distress. Alert and acting appropriately. HEENT: Yes Moist Mucous Membranes, No Pharyngeal Erythema, No Pharyngeal Exudates, No Rhinorrhea, No Conjuctival Injection, No Frontal Tenderness, No Maxillary Tenderness Ear: Neither TM Bulge, Neither TM Erythema, Neither EAC Pain, Neither EAC Discharge Neck: Yes Supple, No Adenopathy Lungs: Yes Good Air Exchange, Yes Wheezes, No Ronchi, No Stridor, No Cough, No Labored Respirations, No Retractions, No Use of Accessory Muscles, No Other Abnormal Lung Sounds Heart: Yes Regular, No Murmur Abdomen: Yes Normal Bowel Sounds, No Tenderness, No Peritoneal Signs Skin: No Rash, No Edema Neurologic: Alert and oriented, no deficits. Musculoskeletal: Unremarkable. ED Course Vital Signs 05/27/20 14:50 Temperature 97.3 F L Pulse Rate 117 H Respiratory 18 Rate Blood Pressure 117/73 [Right] O2 Sat by Pulse 94 Oximetry - Reevaluation(s) Reevaluation #1: 05/27/20 15:53 HR 100 THIS IS AFTER SEVERAL NEBS AT HOME AND HERE REFUSING XRAY BECAUSE HE HAS TO WORK ED Medical Decision Making - Medical Decision Making REFUSES XRAY NO FEVER OR CHILLS TACHY SP RESP TREATMENTS PT FOCUSED ON GETTING TO WORK. HE IS HERE FOR MED REFILLS. DUONEB AND PREDNISONE IN ER DC HOME WITH DC PLAN OF CARE INCLUDING PCP FOLLOW UP. GIVEN RX CARDS. PT VERBALIZES UNDERSTANDING OF DC PLAN OF CARE. AMBULATORY AND TAKING PO. Vital Signs 05/27/20 05/27/20 14:50 15:52 Temperature 97.3 F L Pulse Rate 117 H Pulse Rate [ 110 H Anterior Bilateral Throughout] Respiratory 18 Rate Respiratory 20 Rate [Anterior Bilateral Throughout] Blood Pressure 117/73 [Right] O2 Sat by Pulse 94 Oximetry - Differential Diagnosis ASTHMA AE Critical care attestation.: If time is entered above; I have spent that time in minutes in the direct care of this critically ill patient, excluding procedure time. ED Disposition Clinical Impression: Asthma with acute exacerbation Disposition: DC-01 TO HOME OR SELFCARE Is pt being admited?: No Does the pt Need Aspirin: No Condition: Stable Instructions: Asthma, Adult Additional Instructions: MEDS ORDERED FOLLOW UP WITH PCP REFERRAL BELOW HE MAY BE ABLE TO HELP WITH MEDS Prescriptions: predniSONE [Deltasone] 20 mg PO DAILY #5 tablet Fluticasone [Flonase] 1 spray NS QDAY #1 bottle Albuterol Mdi (or & Nicu Only) [ProAir HFA Inhaler] 2 puff IH QID PRN #8.5 gram PRN Reason: Shortness Of Breath ALBUTEROL NEB's [Proventil 0.083% NEBS] 2.5 mg IH TID PRN #1 box PRN Reason: Wheezing Cetirizine HCl [ZyrTEC] 10 mg PO DAILY #30 capsule Referrals: MYA WILSON MD [Staff Physician] - 3-5 Days Time of Disposition: 15:51
== END 2020-05-27 17:21 | disposition home or self-care (01) ==
LOC: ED 14:20
DX: J45.901 Unspecified asthma with (acute) exacerbation (principal); E11.9 Type 2 diabetes mellitus without complications; Z79.899 Other long term (current) drug therapy; Z98.890 Other specified postprocedural states
CPT/HCPCS: 94640; 99282; J7512; 94644

== ENCOUNTER 2020-09-14 08:27 | Emergency (ER) | payer SELFPAY ==
--- NOTE | 2020-10-15 08:34 | ED Elopement Review ---
ED Pt Elopement review - Results review Lab results: I did not evaluate this patient. It appears that the patient eloped without being seen.
== END 2020-09-14 11:24 ==
LOC: ED 08:27
DX: R10.9 Unspecified abdominal pain (principal); Z53.21 Procedure and treatment not carried out due to patient leaving prior to being seen by health care provider

== ENCOUNTER 2020-09-20 07:07 | Emergency (ER) | payer SELFPAY ==
[2020-09-20] MEDS ORDERED: ONDANSETRON 4 MG/2 ML INJ IV ONE (07:49)
[2020-09-20] MEDS ORDERED: FAMOTIDINE 20 MG TAB PO ONE (07:49)
[2020-09-20] MEDS ORDERED: SODIUM CHLORIDE 0.9% 1000 ML 1,000 ML IV ONE (07:49)
[2020-09-20] MEDS ORDERED: MORPHINE 4 MG/1 ML INJ IV ONE (07:50)
--- NOTE | 2020-09-20 07:50 | Emergency Department Report ---
ED Abdominal Pain HPI - General Chief Complaint: Abdominal Pain Stated Complaint: STOMACH Time Seen by Provider: 09/20/20 07:37 Source: patient Mode of arrival: Ambulatory Limitations: No Limitations - History of Present Illness Initial Comments: 54-year-old male with a past medical history of type 2 diabetes and asthma presents to the ER today with complaints of upper abdominal pain. Patient states that symptoms started 1 week ago. He describes the pain as a burning pain which has been constant. He states that seem to be worse with food. He states that he has been vomiting every time he tries to eat. He states that the emesis is mainly food. He denies any coffee-ground emesis or hematochezia. He denies any diarrhea or any other bowel changes. He denies any fever or chills, chest pain or shortness of breath. He admits that he do drink about a sixpack of beer per week. He denies any NSAID abuse. He denies any past history of abdominal surgeries. MD Complaint: abdominal pain -: Gradual, week(s) (1) Location: LUQ, RUQ, epigastric - Related Data Previous Rx's Medication Instructions Recorded Last Taken Type Amoxicillin [Trimox CAP] 500 mg PO BID #20 capsule 03/24/20 Unknown Rx ALBUTEROL NEB's [Proventil 0.083% 2.5 mg IH TID PRN #1 box 05/27/20 Unknown Rx NEBS] Albuterol Mdi (or & Nicu Only) 2 puff IH QID PRN #8.5 gram 05/27/20 Unknown Rx [ProAir HFA Inhaler] Cetirizine HCl [ZyrTEC] 10 mg PO DAILY #30 capsule 05/27/20 Unknown Rx Fluticasone [Flonase] 1 spray NS QDAY #1 bottle 05/27/20 Unknown Rx predniSONE [Deltasone] 20 mg PO DAILY #5 tablet 05/27/20 Unknown Rx Famotidine [Pepcid] 40 mg PO QHS #30 tablet 09/20/20 Unknown Rx Ondansetron [Zofran Odt] 4 mg PO Q8HR #15 tab.rapdis 09/20/20 Unknown Rx Pantoprazole [Protonix] 40 mg PO QDAY #30 tablet 09/20/20 Unknown Rx Allergies Allergy/AdvReac Type Severity Reaction Status Date / Time No Known Allergies Allergy Verified 09/20/20 07:08 ED Review of Systems ROS: Stated complaint: STOMACH Other details as noted in HPI Comment: All other systems reviewed and negative Constitutional: denies: chills, fever Eyes: denies: eye pain, eye discharge, vision change ENT: denies: ear pain, throat pain, dental pain, hearing loss, epistaxis, congestion Respiratory: denies: cough, shortness of breath, wheezing Cardiovascular: denies: chest pain, palpitations, dyspnea on exertion, edema, syncope, paroxysmal nocturnal dyspnea Gastrointestinal: abdominal pain, nausea, vomiting. denies: diarrhea, constipation, hematemesis, melena, hematochezia Genitourinary: denies: urgency, dysuria, frequency, hematuria, discharge, testicular pain, testicular mass Skin: denies: rash, lesions, change in color, change in hair/nails, pruritus Neurological: denies: headache, weakness, paresthesias, confusion, abnormal gait, vertigo Psychiatric: denies: anxiety, depression, auditory hallucinations, visual hallucinations, homicidal thoughts, suicidal thoughts Hematological/Lymphatic: denies: easy bleeding, easy bruising, swollen glands ED Past Medical Hx - Past Medical History Hx Diabetes: Yes Hx Asthma: Yes - Surgical History Additional Surgical History: ARM - Social History Smoking Status: Never Smoker - Medications Home Medications: Home Medications Medication Instructions Recorded Confirmed Last Taken Type Amoxicillin [Trimox CAP] 500 mg PO BID #20 capsule 03/24/20 Unknown Rx ALBUTEROL NEB's [Proventil 0.083% 2.5 mg IH TID PRN #1 box 05/27/20 Unknown Rx NEBS] Albuterol Mdi (or & Nicu Only) 2 puff IH QID PRN #8.5 gram 05/27/20 Unknown Rx [ProAir HFA Inhaler] Cetirizine HCl [ZyrTEC] 10 mg PO DAILY #30 capsule 05/27/20 Unknown Rx Fluticasone [Flonase] 1 spray NS QDAY #1 bottle 05/27/20 Unknown Rx predniSONE [Deltasone] 20 mg PO DAILY #5 tablet 05/27/20 Unknown Rx Famotidine [Pepcid] 40 mg PO QHS #30 tablet 09/20/20 Unknown Rx Ondansetron [Zofran Odt] 4 mg PO Q8HR #15 tab.rapdis 09/20/20 Unknown Rx Pantoprazole [Protonix] 40 mg PO QDAY #30 tablet 09/20/20 Unknown Rx ED Physical Exam - General Limitations: No Limitations General appearance: alert, in no apparent distress - Head Head exam: Present: atraumatic, normocephalic, normal inspection - Eye Eye exam: Present: normal appearance, PERRL - Neck Neck exam: Present: normal inspection, full ROM - Respiratory Respiratory exam: Present: normal lung sounds bilaterally. Absent: respiratory distress, wheezes, rales, rhonchi, stridor - Cardiovascular Cardiovascular Exam: Present: regular rate, normal rhythm, normal heart sounds - GI/Abdominal GI/Abdominal exam: Present: soft, tenderness (TTP RUQ and epigastric ), guarding (Mild, RUQ and epigastric ). Absent: distended, rebound, rigid - Back Exam Back exam: Present: normal inspection - Neurological Exam Neurological exam: Present: alert, oriented X3, CN II-XII intact, normal gait - Psychiatric Psychiatric exam: Present: normal affect, normal mood - Skin Skin exam: Present: intact ED Course Vital Signs 09/20/20 07:12 Temperature 98.0 F Pulse Rate 110 H Respiratory 20 Rate Blood Pressure 113/82 O2 Sat by Pulse 100 Oximetry ED Medical Decision Making - Lab Data Result diagrams: 09/20/20 07:54 09/20/20 07:54 - Radiology Data Radiology results: report reviewed Patient: GIDEON CHONG MR#: [id number] : 1965 Acct:[id number] Age/Sex: 54 / M ADM Date: 09/20/20 Loc: ED Attending Dr: Ordering Physician: REGLA HAYES Date of Service: 09/20/20 Procedure(s): CT abdomen pelvis w con Accession Number(s): [id number] cc: REGLA HAYES CT ABDOMEN AND PELVIS WITH CONTRAST HISTORY: Severe upper abd pain OMNIPAQUE 300 100ML. COMPARISON: None. TECHNIQUE: CT images of the abdomen and pelvis were obtained following administration of intravenous contrast. All CT scans at this location are performed using CT dose reduction for ALARA by means of automated exposure control. CONTRAST: 100 ml of intravenous contrast administered. FINDINGS: Lungs/bones: Some minimal hazy opacity is seen within the right lower lung wi th small area of density, axial image 12 Abdomen/pelvis: The liver, spleen, adrenal glands, pancreas, gallbladder appear normal. Upper GI tract appears normal. Appendix is unremarkable. No bowel obstruction is seen. No dominant adenopathy. Aorta and branches appear normal. Kidneys appear normal. No acute bone findings are seen. IMPRESSION: 1. Minimal hazy density is seen within the right lower lung, axial images 12. This could represent small area of atelectasis however nonspecific. No focal consolidation. 2. No acute findings are seen in the abdomen or pelvis. Signer Name: Lul Case MD Signed: 09/20/2020 9:15 AM Workstation Name: [id number] Transcribed By: TRINITY Dictated By: NATALIA CASE MD Electronically Authenticated By: NATALIA CASE MD Signed Date/Time: 09/20/20 0915 - Medical Decision Making 1100: Patient reports feeling better after meds. He states that his appetite is coming back and he is ready to go home and get something to eat. Patient is standing at the door anxious to leave. Patient currently well-appearing and not in any acute distress. He is not toxic. His repeat vital signs shows improvement of his heart rate. He is afebrile. Lab results reviewed-CBC shows nothing acute; CMP showed that his blood glucose was elevated at 423, but no evidence of DKA, and the rest of the CMP was unremarkable. Urinalysis shows no UTI. Patient admitted that he did not take any of his insulin today, take typically does start SQ insulin based on his blood sugar level. His repeat fingerstick blood sugar after IV fluids was 337. Emergent treatment of his hyperglycemia not indicated at this time. Discussed lab and CT imaging with patient. His symptoms at this time concerning for gastritis versus peptic ulcer disease. I did discuss with patient that he need to decrease his alcohol intake as that could be part of the reason why he is having this issue but I also recommended that he follows up with primary care doctor and/or GI specialist for an outpatient endoscopy especially if his symptoms persist. In the meantime he will be started on Protonix and Pepcid and also instructed to avoid spicy foods or acidic foods. Patient also instructed to take his insulin as soon as he gets home. Patient expressed understanding of all instructions and agree with plan. Patient was stable at time of discharge. Critical care attestation.: If time is entered above; I have spent that time in minutes in the direct care of this critically ill patient, excluding procedure time. ED Disposition Clinical Impression: Epigastric pain, Gastritis Disposition: TO HOME OR SELFCARE Is pt being admited?: No Does the pt Need Aspirin: No Condition: Stable Instructions: Gastritis, Adult, [id number], Peptic Ulcer, [id number], Abdominal Pain, Adult, Makm-th-Elma Additional Instructions: Take the Pepcid and the Protonix as prescribed. Take the Zofran to help with nausea. It is important that you try the stay away from alcohol and also avoiding spicy foods, and acidic foods. Take your insulin as soon as you get home. Follow-up with your primary care doctor, if your symptoms persist you will need to follow-up with GI for upper endoscopy. Return to the ER if your symptoms changes or worsens in any way. Prescriptions: Famotidine [Pepcid] 40 mg PO QHS #30 tablet Pantoprazole [Protonix] 40 mg PO QDAY #30 tablet Ondansetron [Zofran Odt] 4 mg PO Q8HR #15 tab.rapdis Referrals: MYA WILSON MD [Staff Physician] - 3-5 Days Time of Disposition: 11:08
[2020-09-20 08:11] LABS: Basophils % (Auto) 0.5 % (0.0-1.8); Eosinophils # (Auto) 0.2 K/mm3 (0.0-0.4); Eosinophils % (Auto) 3.5 % (0.0-4.3); Hematocrit 49.1 % (35.5-45.6); Hemoglobin 16.6 gm/dl (11.8-15.2); Lymphocytes # (Auto) 2.6 K/mm3 (1.2-5.4); Mean Corpuscular HGB Conc 34 % (32-34); Mean Corpuscular Volume 87 fl (84-94); Monocytes # (Auto) 0.5 K/mm3 (0.0-0.8); Monocytes % (Auto) 7.2 % (0.0-7.3); Platelet Count 210 K/mm3 (140-440); Red Blood Count 5.64 M/mm3 (3.65-5.03); Red Cell Distribution Width 13.8 % (13.2-15.2)
[2020-09-20 08:30] LABS: Alanine Aminotransferase 14 units/L (7-56); Albumin 4.4 g/dL (3.9-5); BUN/Creatinine Ratio 14; Blood Urea Nitrogen 13 mg/dL (9-20); Calcium 10.2 mg/dL (8.4-10.2); Hemolysis Index 11
[2020-09-20 08:43] LABS: Bilirubin,Direct < 0.2 mg/dL (0-0.2)
--- NOTE | 2020-09-20 09:20 | Cat Scan Report ---
CT ABDOMEN AND PELVIS WITH CONTRAST HISTORY: Severe upper abd pain OMNIPAQUE 300 100ML. COMPARISON: None. TECHNIQUE: CT images of the abdomen and pelvis were obtained following administration of intravenous contrast. All CT scans at this location are performed using CT dose reduction for ALARA by means of automated exposure control. CONTRAST: 100 ml of intravenous contrast administered. FINDINGS: Lungs/bones: Some minimal hazy opacity is seen within the right lower lung with small area of densit y, axial image 12 Abdomen/pelvis: The liver, spleen, adrenal glands, pancreas, gallbladder appear normal. Upper GI tra ct appears normal. Appendix is unremarkable. No bowel obstruction is seen. No dominant adenopathy. Ao rta and branches appear normal. Kidneys appear normal. No acute bone findings are seen. IMPRESSION: 1. Minimal hazy density is seen within the right lower lung, axial images 12. This could represent sm all area of atelectasis however nonspecific. No focal consolidation. 2. No acute findings are seen in the abdomen or pelvis. Signer Name: Lul Case MD Signed: 09/20/2020 9:15 AM Workstation Name: [id number]
[2020-09-20 09:45] LABS: Bilirubin,Urine NEG (Negative); Blood,Urine NEG (Negative); Color,Urine Straw (Yellow); Protein,Urine <15 mg/dL mg/dL (Negative); Urobilinogen,Urine < 2.0 mg/dL (<2.0); WBC,Urine < 1.0 /HPF (0.0-6.0)
[2020-09-20 11:26] VITALS: BP 120/80
== END 2020-09-20 11:28 | disposition home or self-care (01) ==
LOC: ED 07:07
DX: K29.70 Gastritis, unspecified, without bleeding (principal); R10.13 Epigastric pain; E11.9 Type 2 diabetes mellitus without complications; J45.909 Unspecified asthma, uncomplicated
CPT/HCPCS: 36415; 74177; 80048; 80076; 81001; 82962; 83690; 83735; 85025; 96361; 96374; 96375; 99284; J2270; J2405; J7030; Q9967

== ENCOUNTER 2021-02-10 15:00 | Emergency (ER) | payer SELFPAY ==
[2021-02-10] MEDS ORDERED: ALBUTEROL 2.5 MG/3 ML NEBU IH ONE (15:13)
[2021-02-10] MEDS ORDERED: IPRATROPIUM 0.02% NEBU 2.5 ML IH ONE (15:13)
[2021-02-10] MEDS ORDERED: dexAMETHasone 20 MG/5 ML VIAL IM ONE (15:13)
--- NOTE | 2021-02-10 16:05 | Emergency Department Report ---
ED Asthma HPI - General Chief Complaint: Adult Asthma Stated Complaint: ASTHMA Time Seen by Provider: 02/10/21 15:11 Source: patient Mode of arrival: Ambulatory Limitations: No Limitations - History of Present Illness Initial Comments: Patient 55-year-old F [place] male with past medical history of asthma is presenting with 2 days of wheezing. Patient states he is short of breath and he does not have a albuterol inhaler at home. Denies fever but does have a cough. MD Complaint: "asthma attack" Context: ran out of meds Associated Symptoms: dry cough. denies: productive cough, fever, chest pain, hemoptysis, syncope - Related Data Previous Rx's Medication Instructions Recorded Last Taken Type Amoxicillin [Trimox CAP] 500 mg PO BID #20 capsule 03/24/20 Unknown Rx ALBUTEROL NEB's [Proventil 0.083% 2.5 mg IH TID PRN #1 box 05/27/20 Unknown Rx NEBS] Albuterol Mdi (or & Nicu Only) 2 puff IH QID PRN #8.5 gram 05/27/20 Unknown Rx [ProAir HFA Inhaler] Cetirizine HCl [ZyrTEC] 10 mg PO DAILY #30 capsule 05/27/20 Unknown Rx Fluticasone [Flonase] 1 spray NS QDAY #1 bottle 05/27/20 Unknown Rx predniSONE [Deltasone] 20 mg PO DAILY #5 tablet 05/27/20 Unknown Rx Famotidine [Pepcid] 40 mg PO QHS #30 tablet 09/20/20 Unknown Rx Ondansetron [Zofran Odt] 4 mg PO Q8HR #15 tab.rapdis 09/20/20 Unknown Rx Pantoprazole [Protonix] 40 mg PO QDAY #30 tablet 09/20/20 Unknown Rx Allergies Allergy/AdvReac Type Severity Reaction Status Date / Time No Known Allergies Allergy Verified 02/10/21 15:05 ED Review of Systems ROS: Stated complaint: ASTHMA Other details as noted in HPI Comment: All other systems reviewed and negative ED Past Medical Hx - Past Medical History Hx Diabetes: Yes Hx Asthma: Yes - Surgical History Additional Surgical History: ARM - Social History Smoking Status: Never Smoker - Medications Home Medications: Home Medications Medication Instructions Recorded Confirmed Last Taken Type Amoxicillin [Trimox CAP] 500 mg PO BID #20 capsule 03/24/20 Unknown Rx ALBUTEROL NEB's [Proventil 0.083% 2.5 mg IH TID PRN #1 box 05/27/20 Unknown Rx NEBS] Albuterol Mdi (or & Nicu Only) 2 puff IH QID PRN #8.5 gram 05/27/20 Unknown Rx [ProAir HFA Inhaler] Cetirizine HCl [ZyrTEC] 10 mg PO DAILY #30 capsule 05/27/20 Unknown Rx Fluticasone [Flonase] 1 spray NS QDAY #1 bottle 05/27/20 Unknown Rx predniSONE [Deltasone] 20 mg PO DAILY #5 tablet 05/27/20 Unknown Rx Famotidine [Pepcid] 40 mg PO QHS #30 tablet 09/20/20 Unknown Rx Ondansetron [Zofran Odt] 4 mg PO Q8HR #15 tab.rapdis 09/20/20 Unknown Rx Pantoprazole [Protonix] 40 mg PO QDAY #30 tablet 09/20/20 Unknown Rx ED Physical Exam - General Limitations: No Limitations General appearance: alert, in no apparent distress - Head Head exam: Present: atraumatic, normocephalic - Eye Eye exam: Present: normal appearance - ENT ENT exam: Present: mucous membranes moist - Neck Neck exam: Present: normal inspection - Respiratory Respiratory exam: Present: respiratory distress, wheezes. Absent: normal lung sounds bilaterally, rales, rhonchi - Cardiovascular Cardiovascular Exam: Present: regular rate, normal rhythm, normal heart sounds. Absent: systolic murmur, diastolic murmur, rubs, gallop - GI/Abdominal GI/Abdominal exam: Present: soft, normal bowel sounds - Rectal Rectal exam: Present: deferred - Extremities Exam Extremities exam: Present: normal inspection - Back Exam Back exam: Present: normal inspection - Neurological Exam Neurological exam: Present: alert, oriented X3 - Psychiatric Psychiatric exam: Present: normal affect, normal mood - Skin Skin exam: Present: warm, dry, intact, normal color. Absent: rash ED Course Vital Signs 02/10/21 15:30 Pulse Rate [ 88 Posterior] Respiratory 26 H Rate [Posterior ] - Reevaluation(s) Reevaluation #1: 02/10/21 16:04 A hour-long neb treatment as well as steroids have been ordered. Patient was receiving the breathing treatment and was on the neb treatment at least 30 minutes. Patient took the breathing treatment off and stated that he was ready to go and walked out. Known whether the patient's wheezing had resolved. Patient has left AMA. Critical care attestation.: If time is entered above; I have spent that time in minutes in the direct care of this critically ill patient, excluding procedure time. ED Disposition Clinical Impression: Asthma exacerbation Disposition: LEFT AGAINST MEDICAL ADVICE Is pt being admited?: No Does the pt Need Aspirin: No Condition: Stable Referrals: PRIMARY CARE, [Primary Care Provider] - 3-5 Days Time of Disposition: 16:05
== END 2021-02-10 15:59 | disposition left against medical advice (07) ==
LOC: ED 15:00
DX: J45.901 Unspecified asthma with (acute) exacerbation (principal); E11.9 Type 2 diabetes mellitus without complications
CPT/HCPCS: 94644; 96372; 99282; J1100

== ENCOUNTER 2021-02-12 12:08 | Inpatient (IN) | payer OTHER ==
[2021-02-12] MEDS ORDERED: SODIUM CHLORIDE 0.9% 1000 ML 1,000 ML IV ONE ×2 (12:40→15:48)
[2021-02-12] MEDS ORDERED: IPRATROPIUM/ALBUTEROL SULFATE 3 ML AMPUL.NEB IH ONE (12:41)
[2021-02-12] MEDS ORDERED: methylPREDNISolone Sod Succinate 125 MG/2 ML INJ IV ONE (12:42)
--- NOTE | 2021-02-12 12:52 | Emergency Department Report ---
HPI - General Chief Complaint: Dyspnea/Respdistress Time Seen by Provider: 02/12/21 12:29 - HPI HPI: 55-year-old male with history of asthma and diabetes mellitus as well as remote psychiatric history brought in by EMS due to 3 days of shortness of breath and cough. According to the EMS report, the patient initially had an oxygen saturation of 82% on room air. He was given 1 dose of albuterol and upon arrival to the emergency department was satting in the low 90s on room air. The patient states he has a history of asthma and started having asthma symptoms including wheezing and dry cough 3 days ago. He was seen in our emergency department 2 days ago and was given breathing treatments and steroids but left AMA. He says that in addition to his respiratory symptoms for the past 2 days he has had voices in his head telling him to kill himself. He states he has had thoughts of killing himself but has not come up with a plan for how he would do so. He says he has had this happen to him in the past and was hospitalized at [facility] but stopped taking the medications he was prescribed long ago. He currently has no medications including no inhaler. Patient denies any headache, visual changes, neck pain/stiffness, fever, chest pain, palpitations, syncope, abdominal pain, nausea/vomiting, focal weakness, sensory changes, HI, or visual hallucinations. ED Past Medical Hx - Past Medical History Previous Medical History?: Yes Hx Diabetes: Yes Hx Asthma: Yes - Surgical History Additional Surgical History: ARM - Social History Smoking Status: Never Smoker ED Review of Systems ROS: Stated complaint: CRISTIANE Other details as noted in HPI Constitutional: denies: chills, fever Eyes: denies: eye pain, vision change ENT: denies: throat pain, congestion Respiratory: cough, shortness of breath, wheezing Cardiovascular: denies: chest pain, palpitations Gastrointestinal: denies: abdominal pain, nausea, vomiting Genitourinary: denies: dysuria, frequency Musculoskeletal: denies: back pain, arthralgia Skin: denies: rash, lesions Neurological: denies: headache, weakness, numbness Psychiatric: depression, auditory hallucinations, suicidal thoughts. denies: visual hallucinations, homicidal thoughts Physical Exam - Physical Exam Vital Signs: Vital Signs 02/12/21 12:12 Temperature 97.8 F Pulse Rate 112 H Respiratory 18 Rate Blood Pressure 123/71 [Left] O2 Sat by Pulse 91 Oximetry Physical Exam: GENERAL: Well developed and well nourished. In mild respiratory distress. HEAD: Normocephalic. No obvious signs of trauma. ENT: Dry mucous membranes. EYES: Extraocular movements are intact. Pupils are equal round and reactive to light bilaterally NECK: Supple. Full ROM is intact. Trachea is midline. LUNGS: Tachypneic but without accessory muscle use. Equal chest rise bilaterally. Inspiratory and expiratory wheezing throughout bilateral lung kline. CARDIOVASCULAR: Tachycardic but with regular rhythm. No murmurs or rubs. VASCULAR: Cap refill < 2 seconds ABDOMEN: Abdomen is soft and nondistended. There is no significant tenderness, guarding or rebound. SKIN: Skin is warm and dry NEURO: Patient is awake, alert, and oriented. 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 No focal deficits. Normal motor and sensory exam throughout. Normal speech. MUSCULOSKELETAL: No obvious deformities. No significant tenderness. Normal ROM throughout. ED Course Vital Signs 02/12/21 12:12 Temperature 97.8 F Pulse Rate 112 H Respiratory 18 Rate Blood Pressure 123/71 [Left] O2 Sat by Pulse 91 Oximetry ED Medical Decision Making - Lab Data Result diagrams: 02/12/21 13:40 02/12/21 15:06 Lab Results 02/12/21 02/12/21 02/12/21 Range/Units 13:40 13:40 13:40 WBC 9.5 (4.5-11.0) K/mm3 RBC 5.31 H (3.65-5.03) M/mm3 Hgb 14.4 (11.8-15.2) gm/dl Hct 45.6 (35.5-45.6) % MCV 86 (84-94) fl MCH 27 L (28-32) pg MCHC 32 (32-34) % RDW 13.8 (13.2-15.2) % Plt Count 288 (140-440) K/mm3 Lymph % (Auto) 17.8 (13.4-35.0) % [place] % (Auto) 5.4 (0.0-7.3) % Eos % (Auto) 6.8 H (0.0-4.3) % Baso % (Auto) 0.4 (0.0-1.8) % Lymph # (Auto) 1.7 (1.2-5.4) K/mm3 [place] # (Auto) 0.5 (0.0-0.8) K/mm3 Eos # (Auto) 0.6 H (0.0-0.4) K/mm3 Baso # (Auto) 0.0 (0.0-0.1) K/mm3 Seg Neutrophils % 69.6 (40.0-70.0) % Seg Neutrophils # 6.6 (1.8-7.7) K/mm3 Sodium 136 L (137-145) mmol/L Potassium TNR Chloride 103.1 (98-107) mmol/L Carbon Dioxide 21 L (22-30) mmol/L Anion Gap 22 mmol/L BUN 10 (9-20) mg/dL Creatinine 1.0 (0.8-1.3) mg/dL Estimated GFR > 60 ml/min BUN/Creatinine Ratio 10 % Glucose 329 H (75-100) mg/dL POC Glucose (70-105) mg/dL Calcium 7.5 L (8.4-10.2) mg/dL Magnesium (1.7-2.3) mg/dL Total Bilirubin 0.60 (0.1-1.2) mg/dL AST 123 H (5-40) units/L ALT < 5 L (7-56) units/L Alkaline Phosphatase 40 (35-129) units/L Troponin T (0.00-0.029) ng/mL Total Protein 7.2 (6.3-8.2) g/dL Albumin 3.5 L (3.9-5) g/dL Albumin/Globulin Ratio 0.9 % TSH 2.080 (0.270-4.200) mlU/mL Salicylates (2.8-20.0) mg/dL Acetaminophen (10.0-30.0) ug/mL Plasma/Serum Alcohol (0-0.07) % 02/12/21 02/12/21 02/12/21 Range/Units 13:40 13:40 13:40 WBC (4.5-11.0) K/mm3 RBC (3.65-5.03) M/mm3 Hgb (11.8-15.2) gm/dl Hct (35.5-45.6) % MCV (84-94) fl MCH (28-32) pg MCHC (32-34) % RDW (13.2-15.2) % Plt Count (140-440) K/mm3 Lymph % (Auto) (13.4-35.0) % [place] % (Auto) (0.0-7.3) % Eos % (Auto) (0.0-4.3) % Baso % (Auto) (0.0-1.8) % Lymph # (Auto) (1.2-5.4) K/mm3 [place] # (Auto) (0.0-0.8) K/mm3 Eos # (Auto) (0.0-0.4) K/mm3 Baso # (Auto) (0.0-0.1) K/mm3 Seg Neutrophils % (40.0-70.0) % Seg Neutrophils # (1.8-7.7) K/mm3 Sodium (137-145) mmol/L Potassium Chloride (98-107) mmol/L Carbon Dioxide (22-30) mmol/L Anion Gap mmol/L BUN (9-20) mg/dL Creatinine (0.8-1.3) mg/dL Estimated GFR ml/min BUN/Creatinine Ratio % Glucose (75-100) mg/dL POC Glucose (70-105) mg/dL Calcium (8.4-10.2) mg/dL Magnesium (1.7-2.3) mg/dL Total Bilirubin (0.1-1.2) mg/dL AST (5-40) units/L ALT (7-56) units/L Alkaline Phosphatase (35-129) units/L Troponin T (0.00-0.029) ng/mL Total Protein (6.3-8.2) g/dL Albumin (3.9-5) g/dL Albumin/Globulin Ratio % TSH (0.270-4.200) mlU/mL Salicylates < 0.3 L (2.8-20.0) mg/dL Acetaminophen 5.0 L (10.0-30.0) ug/mL Plasma/Serum Alcohol < 0.01 (0-0.07) % 02/12/21 02/12/21 Range/Units 13:40 13:40 WBC (4.5-11.0) K/mm3 RBC (3.65-5.03) M/mm3 Hgb (11.8-15.2) gm/dl Hct (35.5-45.6) % MCV (84-94) fl MCH (28-32) pg MCHC (32-34) % RDW (13.2-15.2) % Plt Count (140-440) K/mm3 Lymph % (Auto) (13.4-35.0) % [place] % (Auto) (0.0-7.3) % Eos % (Auto) (0.0-4.3) % Baso % (Auto) (0.0-1.8) % Lymph # (Auto) (1.2-5.4) K/mm3 [place] # (Auto) (0.0-0.8) K/mm3 Eos # (Auto) (0.0-0.4) K/mm3 Baso # (Auto) (0.0-0.1) K/mm3 Seg Neutrophils % (40.0-70.0) % Seg Neutrophils # (1.8-7.7) K/mm3 Sodium (137-145) mmol/L Potassium Chloride (98-107) mmol/L Carbon Dioxide (22-30) mmol/L Anion Gap mmol/L BUN (9-20) mg/dL Creatinine (0.8-1.3) mg/dL Estimated GFR ml/min BUN/Creatinine Ratio % Glucose (75-100) mg/dL POC Glucose 342 H (70-105) mg/dL Calcium (8.4-10.2) mg/dL Magnesium 1.90 (1.7-2.3) mg/dL Total Bilirubin (0.1-1.2) mg/dL AST (5-40) units/L ALT (7-56) units/L Alkaline Phosphatase (35-129) units/L Troponin T < 0.010 (0.00-0.029) ng/mL Total Protein (6.3-8.2) g/dL Albumin (3.9-5) g/dL Albumin/Globulin Ratio % TSH (0.270-4.200) mlU/mL Salicylates (2.8-20.0) mg/dL Acetaminophen (10.0-30.0) ug/mL Plasma/Serum Alcohol (0-0.07) % - EKG Data -: EKG Interpreted by Nm EKG shows normal: sinus rhythm - EKG Data 02/12/21 18:43 Normal sinus rhythm. Normal axis. Normal intervals. No ectopy. No significant ST segment or T wave abnormalities. - Radiology Data Radiology results: report reviewed - Medical Decision Making 55-year-old with diabetes mellitus and asthma noncompliant with medications presenting with 3 days of shortness of breath and cough. Patient left AMA 2 days ago when he was seen for the same. Patient reports hearing voices in his head telling him to hurt himself as well as suicidal ideation without a plan. 1013 order has been signed and initiated. On physical examination, he has dry mucous membranes as well as mild respiratory distress with inspiratory and expiratory wheezing bilaterally. He is satting 90% on room air. We will order 1 L of IV fluids, 125 mg of IV Solu-Medrol, duo nebs as well as full work-up with labs, EKG, and chest x-ray. Fingerstick blood glucose is elevated at 342. IV fluids are running. Labs have resulted and reveal no significant leukocytosis or anemia. Kidney function is normal and there are no significant electrolyte abnormalities. Troponin is negative. Chest x-ray reveals no acute abnormalities. On repeat assessment at 3 PM, the patient remains with significant tachypnea. He is satting 88% on room air. Lung auscultation reveals diffuse inspiratory and expiratory wheezes throughout. I have ordered IV magnesium and continuous albuterol. Given that the patient has persistent hypoxia he will be admitted to medicine for further management of his asthma exacerbation. At 3:05 PM I spoke with Dr. Cox, the on-call hospitalist regarding the case who accepts patient for admission and will assume care. Critical Care Time: Yes Critical care time in (mins) excluding proc time.: 45 Critical care attestation.: If time is entered above; I have spent that time in minutes in the direct care of this critically ill patient, excluding procedure time. Critical care time was spent in the evaluation/assessment, work-up, and management of asthma exacerbation with hypoxia requiring supplemental oxygen as well as suicidal ideation requiring 1013 order initiation and multiple rounds of treatment as well as frequent reevaluation and reassessment. ED Disposition Clinical Impression: Acute respiratory failure with hypoxia, Asthma exacerbation, Hyperglycemia, Suicidal ideations, Auditory hallucinations Disposition: ADMITTED INPATIENT Is pt being admited?: Yes
--- NOTE | 2021-02-12 13:03 | XRay Report ---
XR chest 1V ap INDICATION / CLINICAL INFORMATION: SOB COMPARISON: None available. FINDINGS: SUPPORT DEVICES: None. HEART / MEDIASTINUM: No significant abnormality. LUNGS / PLEURA: Lungs are clear. Costophrenic sulci are sharp. No pneumothorax. ADDITIONAL FINDINGS: No significant additional findings. IMPRESSION: 1. No acute findings. Signer Name: Jose Cruz Rueda MD Signed: 02/12/2021 12:59 PM Workstation Name: [id number]
[2021-02-12 14:18] LABS: Basophils % (Auto) 0.4 % (0.0-1.8); Eosinophils # (Auto) 0.6 K/mm3 (0.0-0.4); Eosinophils % (Auto) 6.8 % (0.0-4.3); Hematocrit 45.6 % (35.5-45.6); Hemoglobin 14.4 gm/dl (11.8-15.2); Lymphocytes # (Auto) 1.7 K/mm3 (1.2-5.4); Lymphocytes % (Auto) 17.8 % (13.4-35.0); Mean Corpuscular HGB Conc 32 % (32-34); Mean Corpuscular Volume 86 fl (84-94); Monocytes # (Auto) 0.5 K/mm3 (0.0-0.8); Monocytes % (Auto) 5.4 % (0.0-7.3); Platelet Count 288 K/mm3 (140-440); Red Blood Count 5.31 M/mm3 (3.65-5.03); Red Cell Distribution Width 13.8 % (13.2-15.2)
[2021-02-12 14:53] LABS: Albumin 3.5 g/dL (3.9-5); BUN/Creatinine Ratio 10; Blood Urea Nitrogen 10 mg/dL (9-20); Calcium 7.5 mg/dL (8.4-10.2); Hemolysis Index 1257
[2021-02-12] MEDS ORDERED: ASPIRIN 325 MG TAB PO ONE (14:58)
[2021-02-12] MEDS ORDERED: MAGNESIUM SULFATE 2 GM/50 ML BAG IV ONE (15:02)
[2021-02-12] MEDS ORDERED: ALBUTEROL 2.5 MG/3 ML NEBU IH ONE (15:02)
[2021-02-12 15:05] LABS: Alanine Aminotransferase < 5 units/L (7-56)
[2021-02-12 15:40] LABS: Alanine Aminotransferase 8 units/L (7-56); Albumin 4.2 g/dL (3.9-5); BUN/Creatinine Ratio 12; Blood Urea Nitrogen 12 mg/dL (9-20); Hemolysis Index 12
[2021-02-12 15:44] LABS: Calcium 8.8 mg/dL (8.4-10.2)
[2021-02-12 18:09] LABS: Bilirubin,Urine NEG (Negative); Blood,Urine NEG (Negative); Color,Urine Straw (Yellow); Mucus,Urine FEW /HPF; Protein,Urine <15 mg/dL mg/dL (Negative); RBC,Urine < 1.0 /HPF (0.0-6.0); Urobilinogen,Urine < 2.0 mg/dL (<2.0); WBC,Urine < 1.0 /HPF (0.0-6.0)
[2021-02-12 18:14] LABS: Amphetamine Screen,Urine Negative; Benzodiazepines Screen,Urine Negative; Cannabinoid Screen,Urine Negative; Methadone Screen,Urine Negative; Opiate Screen,Urine Negative
[2021-02-12 18:28] LABS: Cocaine Screen,Urine Positive
[2021-02-12] MEDS ORDERED: oxyCODONE /ACETAMINOPHEN 5-325MG TAB PO PRN (21:28)
[2021-02-12] MEDS ORDERED: ONDANSETRON 4 MG/2 ML INJ IV PRN (21:28)
[2021-02-12] MEDS ORDERED: HYDROmorphone 1 MG/1 ML INJ IV PRN (21:28)
[2021-02-12] MEDS ORDERED: METOCLOPRAMIDE 10 MG/2 ML INJ IV PRN (21:28)
--- NOTE | 2021-02-12 21:28 | History and Physical Report ---
History of Present Illness Date of examination: 02/12/21 Date of admission: 02/12/21 15:04 Chief complaint: Shortness of breath and wheezing for 3 days History of present illness: 55-year-old male with history of asthma and diabetes and bipolar disorder comes in for shortness of breath of 3 days duration. Cough productive of mucoid sputum. Patient has history of asthma from childhood. Initial oxygen saturations were in the low 90s on room air. 84% on room air. 91% after treatment. Blood glucose was 400. History of cocaine use. On 101 because of transient suicidal ideation. Patient denies suicidal ideation during my history taking. Patient is not taking any psych medications at present. Wheezing is persistent and not responding to any inhalers. No fever or chills. No exposure to Covid. - Past Medical History --Previous Medical History?: Yes --Diabetes: Yes --Asthma: Yes - Surgical History Additional Surgical History: ARM - Social History --Smoking Status: Never Smoker Review of Systems ROS: Stated complaint: CRISTIANE Other details as noted in HPI Constitutional: denies: chills, fever Eyes: denies: eye pain, vision change ENT: denies: throat pain, congestion Respiratory: cough, shortness of breath, wheezing Cardiovascular: denies: chest pain, palpitations Gastrointestinal: denies: abdominal pain, nausea, vomiting Genitourinary: denies: dysuria, frequency Musculoskeletal: denies: back pain, arthralgia Skin: denies: rash, lesions Neurological: denies: headache, weakness, numbness Psychiatric: depression, auditory hallucinations, suicidal thoughts. denies: visual hallucinations, homicidal thoughts Medications and Allergies Allergies Allergy/AdvReac Type Severity Reaction Status Date / Time No Known Allergies Allergy Verified 02/12/21 13:06 Exam - Constitutional Vitals: Temp Pulse Resp BP Pulse Ox 98.5 F 88 21 115/76 95 02/12/21 12:40 02/12/21 18:01 02/12/21 18:01 02/12/21 18:01 02/12/21 18:01 General appearance: Present: mild distress, well-nourished - EENT Eyes: Present: PERRL ENT: hearing intact, clear oral mucosa - Neck Neck: Present: supple, normal ROM - Respiratory Respiratory effort: normal Respiratory: bilateral: CTA, rhonchi, wheezing - Cardiovascular Heart rate: 70 Rhythm: regular Heart Sounds: Present: S1 & S2. Absent: rub, click - Extremities Extremities: pulses symmetrical, No edema Peripheral Pulses: within normal limits - Abdominal General gastrointestinal: Present: soft, non-tender, non-distended, normal bowel sounds Male genitourinary: Present: normal - Integumentary Integumentary: Present: clear, warm, dry - Musculoskeletal Musculoskeletal: gait normal, strength equal bilaterally - Psychiatric Psychiatric: appropriate mood/affect, intact judgment & insight - Neurologic Neurologic: CNII-XII intact, moves all extremities HEART Score - HEART Score Troponin: Troponin T < 0.010 ng/mL (0.00-0.029) 02/12/21 16:52 Results - Labs CBC & Chem 7: 02/13/21 04:54 02/13/21 04:54 Labs: Laboratory Last Values WBC 9.5 K/mm3 (4.5-11.0) 02/12/21 13:40 RBC 5.31 M/mm3 (3.65-5.03) H 02/12/21 13:40 Hgb 14.4 gm/dl (11.8-15.2) 02/12/21 13:40 Hct 45.6 % (35.5-45.6) 02/12/21 13:40 MCV 86 fl (84-94) 02/12/21 13:40 MCH 27 pg (28-32) L 02/12/21 13:40 MCHC 32 % (32-34) 02/12/21 13:40 RDW 13.8 % (13.2-15.2) 02/12/21 13:40 Plt Count 288 K/mm3 (140-440) 02/12/21 13:40 Lymph % (Auto) 17.8 % (13.4-35.0) 02/12/21 13:40 [place] % (Auto) 5.4 % (0.0-7.3) 02/12/21 13:40 Eos % (Auto) 6.8 % (0.0-4.3) H 02/12/21 13:40 Baso % (Auto) 0.4 % (0.0-1.8) 02/12/21 13:40 Lymph # (Auto) 1.7 K/mm3 (1.2-5.4) 02/12/21 13:40 [place] # (Auto) 0.5 K/mm3 (0.0-0.8) 02/12/21 13:40 Eos # (Auto) 0.6 K/mm3 (0.0-0.4) H 02/12/21 13:40 Baso # (Auto) 0.0 K/mm3 (0.0-0.1) 02/12/21 13:40 Seg Neutrophils % 69.6 % (40.0-70.0) 02/12/21 13:40 Seg Neutrophils # 6.6 K/mm3 (1.8-7.7) 02/12/21 13:40 Sodium 142 mmol/L (137-145) 02/12/21 15:06 Potassium 4.1 mmol/L (3.6-5.0) 02/12/21 15:06 Chloride 101.8 mmol/L (98-107) 02/12/21 15:06 Carbon Dioxide 25 mmol/L (22-30) 02/12/21 15:06 Anion Gap 19 mmol/L 02/12/21 15:06 BUN 12 mg/dL (9-20) 02/12/21 15:06 Creatinine 1.0 mg/dL (0.8-1.3) 02/12/21 15:06 Estimated GFR > 60 ml/min 02/12/21 15:06 BUN/Creatinine Ratio 12 % 02/12/21 15:06 Glucose 410 mg/dL (75-100) H 02/12/21 15:06 POC Glucose 342 mg/dL (70-105) H 02/12/21 13:40 Calcium 8.8 mg/dL (8.4-10.2) D 02/12/21 15:06 Magnesium 1.90 mg/dL (1.7-2.3) 02/12/21 13:40 Total Bilirubin 0.40 mg/dL (0.1-1.2) 02/12/21 15:06 AST 9 units/L (5-40) 02/12/21 15:06 ALT 8 units/L (7-56) 02/12/21 15:06 Alkaline Phosphatase 70 units/L (35-129) 02/12/21 15:06 Troponin T < 0.010 ng/mL (0.00-0.029) 02/12/21 16:52 Total Protein 6.1 g/dL (6.3-8.2) L 02/12/21 15:06 Albumin 4.2 g/dL (3.9-5) 02/12/21 15:06 Albumin/Globulin Ratio 2.2 % 02/12/21 15:06 TSH 2.080 mlU/mL (0.270-4.200) 02/12/21 13:40 Urine Color Straw (Yellow) 02/12/21 Unknown Urine Turbidity Clear (Clear) 02/12/21 Unknown Urine pH 5.0 (5.0-7.0) 02/12/21 Unknown Ur Specific [place] 1.022 (1.003-1.030) 02/12/21 Unknown Urine Protein <15 mg/dl mg/dL (Negative) 02/12/21 Unknown Urine Glucose (UA) >=500 mg/dL (Negative) 02/12/21 Unknown Urine Ketones Neg mg/dL (Negative) 02/12/21 Unknown Urine Blood Neg (Negative) 02/12/21 Unknown Urine Nitrite Neg (Negative) 02/12/21 Unknown Urine Bilirubin Neg (Negative) 02/12/21 Unknown Urine Urobilinogen < 2.0 mg/dL (<2.0) 02/12/21 Unknown Ur Leukocyte Esterase Neg (Negative) 02/12/21 Unknown Urine WBC (Auto) < 1.0 /HPF (0.0-6.0) 02/12/21 Unknown Urine RBC (Auto) < 1.0 /HPF (0.0-6.0) 02/12/21 Unknown U Epithel Cells (Auto) < 1.0 /HPF (0-13.0) 02/12/21 Unknown Urine Mucus Few /HPF 02/12/21 Unknown Salicylates < 0.3 mg/dL (2.8-20.0) L 02/12/21 13:40 Urine Opiates Screen Negative 02/12/21 Unknown Urine Methadone Screen Negative 02/12/21 Unknown Acetaminophen 5.0 ug/mL (10.0-30.0) L 02/12/21 13:40 Ur Barbiturates Screen Negative 02/12/21 Unknown Ur Phencyclidine Scrn Negative 02/12/21 Unknown Ur Amphetamines Screen Negative 02/12/21 Unknown U Benzodiazepines Scrn Negative 02/12/21 Unknown Urine Cocaine Screen Positive 02/12/21 Unknown U Marijuana (THC) Screen Negative 02/12/21 Unknown Drugs of Abuse Note Disclamer 02/12/21 Unknown Plasma/Serum Alcohol < 0.01 % (0-0.07) 02/12/21 13:40 Short CBC 02/12/21 02/13/21 Range/Units 13:40 04:54 WBC 9.5 6.5 (4.5-11.0) K/mm3 Hgb 14.4 14.4 (11.8-15.2) gm/dl Hct 45.6 45.7 H (35.5-45.6) % Plt Count 288 207 (140-440) K/mm3 BMP 02/12/21 02/12/21 02/13/21 13:40 15:06 04:54 Sodium 136 L 142 136 L Potassium TNR 4.1 4.7 Chloride 103.1 101.8 97.3 L Carbon Dioxide 21 L 25 19 L BUN 10 12 21 H Creatinine 1.0 1.0 1.1 Glucose 329 H 410 H 537 H* Calcium 7.5 L 8.8 D 9.2 Cardiac Enzymes 02/12/21 02/12/21 Range/Units 13:40 16:52 Troponin T < 0.010 < 0.010 (0.00-0.029) ng/mL Liver Function 02/12/21 02/12/21 Range/Units 13:40 15:06 Total Bilirubin 0.60 0.40 (0.1-1.2) mg/dL AST 123 H 9 (5-40) units/L ALT < 5 L 8 (7-56) units/L Alkaline Phosphatase 40 70 (35-129) units/L Albumin 3.5 L 4.2 (3.9-5) g/dL Urine 02/12/21 Range/Units Unknown Urine Color Straw (Yellow) Urine pH 5.0 (5.0-7.0) Ur Specific [place] 1.022 (1.003-1.030) Urine Protein <15 mg/dl (Negative) mg/dL Urine Glucose (UA) >=500 (Negative) mg/dL - Imaging and Cardiology Chest x-ray: report reviewed Imaging and Cardiology: Chest x-ray No acute findings Assessment and Plan Advance Directives: Yes (Full code) VTE prophylaxis?: Chemical Plan of care discussed with patient/family: Yes - Patient Problems (1) Acute respiratory failure with hypoxia Current Visit: Yes Status: Acute Plan to address problem: Patient was saturating at 84% on room air at the time of admission to the emergency room With treatment. Oxygen saturation came up to 91%. Patient to continue having nebulizer treatments and IV Solu-Medrol and IV antibiotics. (2) Asthma exacerbation Current Visit: Yes Status: Acute Qualifiers: Asthma severity: severe Asthma persistence: persistent Qualified Code(s): J45.51 - Severe persistent asthma with (acute) exacerbation Plan to address problem: Patient is on DuoNebs [id number] and as needed, IV antibiotics and IV So michelle-Medrol. BiPAP if necessary Intubation if necessary (3) IDDM (insulin dependent diabetes mellitus) Current Visit: Yes Status: Acute Plan to address problem: Uncontrolled Patient initiated on long-acting insulin and short-acting insulin AC at bedtime Check hemoglobin A1c Coverage with high-dose sliding scale (4) Hypertension Current Visit: Yes Status: Chronic Qualifiers: Hypertension type: primary hypertension Qualified Code(s): I10 - Essential (primary) hypertension Plan to address problem: Continue antihypertensives (5) Suicidal ideations Current Visit: Yes Status: Acute Plan to address problem: Patient on 1013 Mental health consult requested (6) Cocaine dependence Current Visit: Yes Status: Chronic Qualifiers: Substance use status: uncomplicated Qualified Code(s): F14.20 - Cocaine dependence, uncomplicated Plan to address problem: Counseled about cocaine dependence (7) DVT prophylaxis Current Visit: Yes Status: Acute Plan to address problem: On anticoagulation and GI prophylaxis (8) Advance care planning Current Visit: Yes Status: Acute Plan to address problem: Disease education conducted, care plan discussed, diagnosis discussed, prognosis discussed, patient acknowledges understanding and agrees with care plan. +30 minutes.
[2021-02-12] MEDS ORDERED: IPRATROPIUM/ALBUTEROL SULFATE 3 ML AMPUL.NEB IH PRN (21:30)
[2021-02-12] MEDS: methylPREDNISolone Sod Succinate 125 MG/2 ML INJ IV SCH (22:00)
[2021-02-12] MEDS: FAMOTIDINE 20 MG TAB PO SCH (22:00)
[2021-02-12] MEDS: HEPARIN 5,000 UNIT/1 ML VIAL SUB-Q SCH (22:01)
[2021-02-12] MEDS ORDERED: ALBUTEROL 2.5 MG/3 ML NEBU IH PRN (22:04)
[2021-02-13 05:28] LABS: Hematocrit 45.7 % (35.5-45.6); Hemoglobin 14.4 gm/dl (11.8-15.2); Mean Corpuscular HGB Conc 32 % (32-34); Mean Corpuscular Volume 88 fl (84-94); Platelet Count 207 K/mm3 (140-440); Red Blood Count 5.21 M/mm3 (3.65-5.03); Red Cell Distribution Width 13.7 % (13.2-15.2)
[2021-02-13 05:36] LABS: BUN/Creatinine Ratio 19; Blood Urea Nitrogen 21 mg/dL (9-20); Calcium 9.2 mg/dL (8.4-10.2); Hemolysis Index 5
[2021-02-13] MEDS: methylPREDNISolone Sod Succinate 125 MG/2 ML INJ IV SCH ×2 (06:00→18:22)
[2021-02-13 06:38] LABS: Anisocytosis 1+; Band Neutrophils # (Manual) 0.1 K/mm3; Total Cells Counted 100
[2021-02-13 06:39] LABS: Platelet Estimate Consistent w Auto
[2021-02-13] MEDS ORDERED: DEXTROSE 50% IN WATER (25GM) 50 ML SYRINGE IV PRN (07:24)
[2021-02-13] MEDS: IPRATROPIUM/ALBUTEROL SULFATE 3 ML AMPUL.NEB IH SCH ×4 (10:10→19:58)
[2021-02-13] MEDS: INSULIN GLARGINE 100 UNITS/ML SUB-Q SCH ×2 (11:17→11:42)
[2021-02-13] MEDS: INSULIN LISPRO 100 UNIT/ML SUB-Q SCH ×5 (11:18→23:52)
[2021-02-13] MEDS: HEPARIN 5,000 UNIT/1 ML VIAL SUB-Q SCH ×2 (11:45→23:49)
[2021-02-13] MEDS: FAMOTIDINE 20 MG TAB PO SCH ×2 (11:46→22:47)
[2021-02-13] MEDS: INSULIN REGULAR, HUMAN 100 UNITS/1 ML SUB-Q SCH ×2 (11:47→18:21)
--- NOTE | 2021-02-13 11:58 | Consultation ---
History of Present Illness - Reason for Consult Consult date: 02/13/21 Reason for consult: SI, hallucinaions - History of Present Psychiatric Illness The patient was seen today. He is a 55y/o male who states he came to the hospital for an asthma attack. He says but for the past few days he's been feeling suicidal and hearing voices telling him to kill himself. He says he didn't really start hearing the voices until after he had the shortness of breath. He reports feeling anxious and depressed. The patient says "I just done got tired. I'm going through so much." She says "and I don't know why, but I feel real paranoid and nervous." The patient says he has a history of cocaine use. He says he has been off his meds for awhile. The patient says he takes zoloft and seroquel. PAST PSYCHIATRIC HISTORY Diagnoses: Schizophrenia Suicide attempts or Self-harm behavior: Denies Prior psychiatric hospitalizations: Yes Substance Abuse history: Cocaine Previous psychiatric medications tried:Denies Outpatient treatment:Denies SOCIAL HISTORY Marital Status: Single Living Arrangements:Homeless Employment Status: Unemployed Access to guns/weapons: Unknown Education:Unknown History of Abuse:Unknown Legal History: None reported REVIEW OF SYSTEMS Constitutional: Negative for weight loss ENT: Negative for stridor Respiratory: Negative for cough or hemoptysis All other systems reviewed and are negative MENTAL STATUS EXAMINATION General Appearance and Behavior: Age appropriate, dressed appropriately, calm and uncooperative Cooperation: cooperative Psychomotor Behavior: psychomotor normal Mood: "anxious, depressed" Affect and affective range: Constricted Thought Process: goal directed Thought Content: hallucinations, SI Speech: Normal volume, Regular rate and rhythm, Suicidal Ideation: Yes Homicidal Ideation: Denies Hallucinations: Auditory Delusions: None elicited Impulse Control: Unimpaired Insight and Judgment: limited insight and fair judgment, Memory: Normal Attention: divided Orientation: Alert, oriented Assessment and Plan (1) Schizophrenia (2) Cocaine Use Disorder Treatment plan 1013 Zoloft 25mg po daily Seroquel 50mg po BID Medical: per primary Risks, benefits and alternatives of medications discussed with the patient, questions answered and consent obtained from patient. PSYCHOTHERAPY: Supportive psychotherapy provided MEDICAL: Per primary team DELIRIUM PRECAUTIONS: Please re-orient patient frequently, keep lights on during the day, and minimize benzodiazepines and opiates as these medications could worsen patient's confusion. 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 Will follow. Thank you for the consult. Please contact with any questions and/or concerns. Case staffed with Dr. Dodd Medications and Allergies Allergies Allergy/AdvReac Type Severity Reaction Status Date / Time No Known Allergies Allergy Verified 02/12/21 13:06 Active Meds: Active Medications Acetaminophen (Acetaminophen 325 Mg Tab) 650 mg PO Q4H PRN PRN Reason: Pain MILD(1-3)/Fever >100.5/MARINA Albuterol (Albuterol 2.5 Mg/3 Ml Nebu) 2.5 mg IH Q3HRT PRN PRN Reason: Wheezing Albuterol/Ipratropium (Ipratropium/Albuterol Sulfate 3 Ml Ampul.Neb) 1 ampul IH QIDRT SAMI Dextrose (Dextrose 50% In Water (25gm) 50 Ml Syringe) 50 ml IV Q30MIN PRN; Protocol PRN Reason: Hypoglycemia Famotidine (Famotidine 20 Mg Tab) 20 mg PO BID SAMI Last Admin: 02/13/21 11:46 Dose: 20 mg Documented by: Heparin Sodium (Porcine) (Heparin 5,000 Unit/1 Ml Vial) 5,000 unit SUB-Q Q12HR SAMI Last Admin: 02/13/21 11:45 Dose: 5,000 unit Documented by: Hydromorphone HCl (Hydromorphone 1 Mg/1 Ml Inj) 0.5 mg IV Q3H PRN PRN Reason: Pain , Severe (7-10) Levofloxacin/Dextrose (Levaquin 750mg/150ml) 750 mg in 150 mls @ 100 mls/hr IV Q24HR SAMI; Protocol Last Admin: 02/13/21 11:46 Dose: 100 mls/hr Documented by: Insulin Glargine (Insulin Glargine 100 Units/Ml) 30 units SUB-Q QAM SAMI Last Admin: 02/13/21 11:42 Dose: 30 units Documented by: Insulin Human Lispro (Insulin Lispro 100 Unit/Ml) 0 unit SUB-Q Q4HR SAMI; Protocol Last Admin: 02/13/21 11:44 Dose: 10 unit Documented by: Insulin Human Regular (Insulin Regular, Human 100 Units/1 Ml) 0 units SUB-Q ACHS SAMI; Protocol Last Admin: 02/13/21 11:47 Dose: Not Given Documented by: Methylprednisolone Sodium Succinate (Methylprednisolone Sod Succinate 125 Mg/2 Ml Inj) 60 mg IV Q8HR [facility] Last Admin: 02/13/21 06:00 Dose: 60 mg Documented by: Metoclopramide HCl (Metoclopramide 10 Mg/2 Ml Inj) 10 mg IV Q6H PRN PRN Reason: Nausea And Vomiting Ondansetron HCl (Ondansetron 4 Mg/2 Ml Inj) 4 mg IV Q8H PRN PRN Reason: Nausea And Vomiting Oxycodone/Acetaminophen (Oxycodone /Acetaminophen 5-325mg Tab) 1 tab PO Q6H PRN PRN Reason: Pain, Moderate (4-6) Sodium Chloride (Sodium Chloride 0.9% 10 Ml Flush Syringe) 10 ml IV BID [facility] Last Admin: 02/13/21 11:47 Dose: 10 ml Documented by: Sodium Chloride (Sodium Chloride 0.9% 10 Ml Flush Syringe) 10 ml IV PRN PRN PRN Reason: LINE FLUSH Mental Status Exam - Vital signs Last Vital Signs Temp 98.5 F 02/12/21 12:40 Pulse 96 H 02/13/21 05:00 Resp 22 02/13/21 05:00 BP 115/82 02/13/21 05:00 Pulse Ox 92 02/13/21 04:00 Results Result Diagrams: 02/13/21 04:54 02/13/21 04:54 Abnormal lab results 02/12/21 02/12/21 02/12/21 Range/Units 13:40 13:40 13:40 RBC 5.31 H (3.65-5.03) M/mm3 Hct (35.5-45.6) % MCH 27 L (28-32) pg Eos % (Auto) 6.8 H (0.0-4.3) % Eos # (Auto) 0.6 H (0.0-0.4) K/mm3 Seg Neuts % (Manual) (40.0-70.0) % Lymphocytes % (Manual) (13.4-35.0) % Lymphocytes # (Manual) (1.2-5.4) K/mm3 Sodium 136 L (137-145) mmol/L Chloride (98-107) mmol/L Carbon Dioxide 21 L (22-30) mmol/L BUN (9-20) mg/dL Glucose 329 H (75-100) mg/dL POC Glucose (70-105) mg/dL Calcium 7.5 L (8.4-10.2) mg/dL AST 123 H (5-40) units/L ALT < 5 L (7-56) units/L Total Protein (6.3-8.2) g/dL Albumin 3.5 L (3.9-5) g/dL Salicylates < 0.3 L (2.8-20.0) mg/dL Acetaminophen (10.0-30.0) ug/mL 02/12/21 02/12/21 02/12/21 Range/Units 13:40 13:40 15:06 RBC (3.65-5.03) M/mm3 Hct (35.5-45.6) % MCH (28-32) pg Eos % (Auto) (0.0-4.3) % Eos # (Auto) (0.0-0.4) K/mm3 Seg Neuts % (Manual) (40.0-70.0) % Lymphocytes % (Manual) (13.4-35.0) % Lymphocytes # (Manual) (1.2-5.4) K/mm3 Sodium (137-145) mmol/L Chloride (98-107) mmol/L Carbon Dioxide (22-30) mmol/L BUN (9-20) mg/dL Glucose 410 H (75-100) mg/dL POC Glucose 342 H (70-105) mg/dL Calcium (8.4-10.2) mg/dL AST (5-40) units/L ALT (7-56) units/L Total Protein 6.1 L (6.3-8.2) g/dL Albumin (3.9-5) g/dL Salicylates (2.8-20.0) mg/dL Acetaminophen 5.0 L (10.0-30.0) ug/mL 02/13/21 02/13/21 02/13/21 Range/Units 04:54 04:54 09:14 RBC 5.21 H (3.65-5.03) M/mm3 Hct 45.7 H (35.5-45.6) % MCH (28-32) pg Eos % (Auto) (0.0-4.3) % Eos # (Auto) (0.0-0.4) K/mm3 Seg Neuts % (Manual) 96.0 H (40.0-70.0) % Lymphocytes % (Manual) 3.0 L (13.4-35.0) % Lymphocytes # (Manual) 0.2 L (1.2-5.4) K/mm3 Sodium 136 L (137-145) mmol/L Chloride 97.3 L (98-107) mmol/L Carbon Dioxide 19 L (22-30) mmol/L BUN 21 H (9-20) mg/dL Glucose 537 H* (75-100) mg/dL POC Glucose 434 H (70-105) mg/dL Calcium (8.4-10.2) mg/dL AST (5-40) units/L ALT (7-56) units/L Total Protein (6.3-8.2) g/dL Albumin (3.9-5) g/dL Salicylates (2.8-20.0) mg/dL Acetaminophen (10.0-30.0) ug/mL All other labs normal.
--- NOTE | 2021-02-13 12:52 | Electrocardiograph Report ---
[facility] Test Date: 2021-02-12 Test Time: 15:09:57 Pat Name: GIDEON CHONG Department: Room: [place] [address] Gender: M Public Area Attendant: EFRA : 1965 Requested By: LUX ROSALES Order Number: [id number] Reading MD: Joseluis Mancia Measurements Intervals [place] Rate: 97 P: 52 WA: 160 QRS: 1 QRSD: 79 T: 86 QT: 356 QTc: 452 Interpretive Statements Sinus rhythm No previous ECG available for comparison Electronically Signed On 02-13-2021 12:52:18 EST by Joseluis Mancia
[2021-02-13] MEDS: QUEtiapine 25 MG TAB PO SCH ×2 (18:20→23:48)
[2021-02-13] MEDS: SERTRALINE 25 MG TAB PO SCH (18:20)
[2021-02-13] MEDS ORDERED: INSULIN GLARGINE 100 UNITS/ML SUB-Q ONE (22:00)
--- NOTE | 2021-02-13 22:02 | Progress Note ---
Assessment and Plan Assessment and plan: 55-year-old male with history of asthma and diabetes and bipolar disorder comes in for shortness of breath of 3 days duration. Cough productive of mucoid sputum. Patient has history of asthma from childhood. Wheezing noted in ED. Initial oxygen saturations were 84% on room air. 91% after treatment. Blood glucose was 400. Patient says that he ran out of his inhalers. History of cocaine use and UDS positive for cocaine here. He says but for the past few days he's been feeling suicidal and hearing voices telling him to kill himself. Patient is not taking any psych medications at present. He used to take Zoloft and Seroquel. Placed on a 1013 and psych consulted. (1) Acute respiratory failure with hypoxia Current Visit: Yes Status: Acute Plan to address problem: Patient was saturating at 84% on room air at the time of admission to the emergency room With treatment. Oxygen saturation came up to 91%. Patient to continue having nebulizer treatments and placed on IV Solu-Medrol and IV antibiotics. (2) Asthma exacerbation Current Visit: Yes Status: Acute Qualifiers: Asthma severity: severe Asthma persistence: persistent Qualified Code(s): J45.51 - Severe persistent asthma with (acute) exacerbation Plan to address problem: Chest x-ray showed no acute process. Denies exposure to COVID-19. However or dered COVID-19 PCR test. Patient denies fever or chills. Patient is on DuoNebs [id number] and as needed, placed on IV antibiotics and IV Solu-Medrol. Dyspnea and wheezing improved since admitted. (3) IDDM, A1c 11.1 Current Visit: Yes Status: Acute Plan to address problem: Uncontrolled likely from noncompliance Patient initiated on long-acting insulin and short-acting insulin AC Coverage with high-dose sliding scale Changed to IV Solu-Medrol to prednisone for severe hyperglycemia (4) Hypertension Current Visit: Yes Status: Chronic Qualifiers: Hypertension type: primary hypertension Qualified Code(s): I10 - Essential (primary) hypertension Plan to address problem: Continue antihypertensives (5) history of schizophrenia and suicidal ideations Current Visit: Yes Status: Acute Plan to address problem: Paranoid and hearing voices telling him to kill himself, placed patient under 1013 Mental health consulted, following, recommending inpatient psych evaluation (6) Cocaine dependence Current Visit: Yes Status: Chronic Qualifiers: Substance use status: uncomplicated Qualified Code(s): F14.20 - Cocaine dependence, uncomplicated Plan to address problem: Urine drug screen positive for cocaine. Counseled about cocaine dependence (7) DVT prophylaxis Current Visit: Yes Status: Acute Plan to address problem: On anticoagulation and GI prophylaxis Discussed with the nursing staff History Interval history: Patient is currently resting and he does not want to be disturbed. He is on room air without acute respiratory distress. He is seen by psychiatry and and is under 1013 for suicidal ideation. With history of schizophrenia. Patient reports that is off all his inhalers and he came to ER because of difficulty breathing and wheezing. Afebrile. Mild sinus tachycardia. BP okay. Blood glucose significantly elevated. On IV Solu-Medrol. Hospitalist Physical - Constitutional Vitals: Temp Pulse Resp BP Pulse Ox 98.5 F 100 H 18 107/70 95 02/12/21 12:40 02/13/21 20:00 02/13/21 20:00 02/13/21 20:00 02/13/21 20:00 General appearance: Present: no acute distress, disheveled, other (Irritable and he does not want to be bothered.) - EENT Eyes: Present: PERRL, EOM intact. Absent: scleral icterus ENT: hearing intact, other (Dry oral mucosa) - Neck Neck: Present: supple, other (No JVD) - Respiratory Respiratory effort: normal Respiratory: bilateral: diminished, wheezing (Mild to moderately tight expiratory air movement.) - Cardiovascular Rhythm: regular - Extremities Extremities: No edema - Abdominal General gastrointestinal: soft, non-tender, non-distended, normal bowel sounds - Integumentary Integumentary: Absent: rash - Psychiatric Psychiatric: other (Anxious) - Neurologic Neurologic: no focal deficits, moves all extremities HEART Score - HEART Score Troponin: Troponin T < 0.010 ng/mL (0.00-0.029) 02/12/21 16:52 Results - Labs CBC & Chem 7: 02/13/21 04:54 02/13/21 04:54 Labs: Laboratory Last Values WBC 6.5 K/mm3 (4.5-11.0) 02/13/21 04:54 RBC 5.21 M/mm3 (3.65-5.03) H 02/13/21 04:54 Hgb 14.4 gm/dl (11.8-15.2) 02/13/21 04:54 Hct 45.7 % (35.5-45.6) H 02/13/21 04:54 MCV 88 fl (84-94) 02/13/21 04:54 MCH 28 pg (28-32) 02/13/21 04:54 MCHC 32 % (32-34) 02/13/21 04:54 RDW 13.7 % (13.2-15.2) 02/13/21 04:54 Plt Count 207 K/mm3 (140-440) 02/13/21 04:54 Lymph % (Auto) 17.8 % (13.4-35.0) 02/12/21 13:40 [place] % (Auto) 5.4 % (0.0-7.3) 02/12/21 13:40 Eos % (Auto) 6.8 % (0.0-4.3) H 02/12/21 13:40 Baso % (Auto) 0.4 % (0.0-1.8) 02/12/21 13:40 Lymph # (Auto) 1.7 K/mm3 (1.2-5.4) 02/12/21 13:40 [place] # (Auto) 0.5 K/mm3 (0.0-0.8) 02/12/21 13:40 Eos # (Auto) 0.6 K/mm3 (0.0-0.4) H 02/12/21 13:40 Baso # (Auto) 0.0 K/mm3 (0.0-0.1) 02/12/21 13:40 Add Manual Diff Complete 02/13/21 04:54 Total Counted 100 02/13/21 04:54 Seg Neutrophils % Manager Housekeeping 02/13/21 04:54 Seg Neuts % (Manual) 96.0 % (40.0-70.0) H 02/13/21 04:54 Band Neutrophils % 1.0 % 02/13/21 04:54 Lymphocytes % (Manual) 3.0 % (13.4-35.0) L 02/13/21 04:54 Nucleated RBC % Not Reportable 02/13/21 04:54 Seg Neutrophils # 6.6 K/mm3 (1.8-7.7) 02/12/21 13:40 Seg Neutrophils # Man 6.2 K/mm3 (1.8-7.7) 02/13/21 04:54 Band Neutrophils # 0.1 K/mm3 02/13/21 04:54 Lymphocytes # (Manual) 0.2 K/mm3 (1.2-5.4) L 02/13/21 04:54 Abs React Lymphs (Man) 0.0 K/mm3 02/13/21 04:54 Monocytes # (Manual) 0.0 K/mm3 (0.0-0.8) 02/13/21 04:54 Eosinophils # (Manual) 0.0 K/mm3 (0.0-0.4) 02/13/21 04:54 Basophils # (Manual) 0.0 K/mm3 (0.0-0.1) 02/13/21 04:54 Metamyelocytes # 0.0 K/mm3 02/13/21 04:54 Myelocytes # 0.0 K/mm3 02/13/21 04:54 Promyelocytes # 0.0 K/mm3 02/13/21 04:54 Blast Cells # 0.0 K/mm3 02/13/21 04:54 WBC Morphology Not Reportable 02/13/21 04:54 Hypersegmented Neuts Not Reportable 02/13/21 04:54 Hyposegmented Neuts Not Reportable 02/13/21 04:54 Hypogranular Neuts Not Reportable 02/13/21 04:54 Smudge Cells Not Reportable 02/13/21 04:54 Toxic Granulation Not Reportable 02/13/21 04:54 Toxic Vacuolation Not Reportable 02/13/21 04:54 Dohle Bodies Not Reportable 02/13/21 04:54 Pelger-Huet Anomaly Not Reportable 02/13/21 04:54 Katey Rods Not Reportable 02/13/21 04:54 Platelet Estimate Consistent w auto 02/13/21 04:54 Clumped Platelets Not Reportable 02/13/21 04:54 Plt Clumps, EDTA Not Reportable 02/13/21 04:54 Large Platelets Not Reportable 02/13/21 04:54 Giant Platelets Not Reportable 02/13/21 04:54 Platelet Satelliting Not Reportable 02/13/21 04:54 Plt Morphology Comment Not Reportable 02/13/21 04:54 RBC Morphology Not Reportable 02/13/21 04:54 Dimorphic RBCs Not Reportable 02/13/21 04:54 Polychromasia Not Reportable 02/13/21 04:54 Hypochromasia Not Reportable 02/13/21 04:54 Poikilocytosis Not Reportable 02/13/21 04:54 Anisocytosis 1+ 02/13/21 04:54 Microcytosis Not Reportable 02/13/21 04:54 Macrocytosis Not Reportable 02/13/21 04:54 Spherocytes Not Reportable 02/13/21 04:54 Pappenheimer Bodies Not Reportable 02/13/21 04:54 Sickle Cells Not Reportable 02/13/21 04:54 Target Cells Not Reportable 02/13/21 04:54 Tear Drop Cells Not Reportable 02/13/21 04:54 Ovalocytes Not Reportable 02/13/21 04:54 Helmet Cells Not Reportable 02/13/21 04:54 Henry-Russell Bodies Not Reportable 02/13/21 04:54 Bascom Rings Not Reportable 02/13/21 04:54 [place] Cells Not Reportable 02/13/21 04:54 Bite Cells Not Reportable 02/13/21 04:54 Crenated Cell Not Reportable 02/13/21 04:54 Elliptocytes Not Reportable 02/13/21 04:54 Acanthocytes (Spur) Not Reportable 02/13/21 04:54 Rouleaux Not Reportable 02/13/21 04:54 Hemoglobin C Crystals Not Reportable 02/13/21 04:54 Schistocytes Not Reportable 02/13/21 04:54 Malaria parasites Not Reportable 02/13/21 04:54 Tony Bodies Not Reportable 02/13/21 04:54 Hem Pathologist Commnt No 02/13/21 04:54 Sodium 136 mmol/L (137-145) L 02/13/21 04:54 Potassium 4.7 mmol/L (3.6-5.0) 02/13/21 04:54 Chloride 97.3 mmol/L (98-107) L 02/13/21 04:54 Carbon Dioxide 19 mmol/L (22-30) L 02/13/21 04:54 Anion Gap 24 mmol/L 02/13/21 04:54 BUN 21 mg/dL (9-20) H 02/13/21 04:54 Creatinine 1.1 mg/dL (0.8-1.3) 02/13/21 04:54 Estimated GFR > 60 ml/min 02/13/21 04:54 BUN/Creatinine Ratio 19 % 02/13/21 04:54 Glucose 537 mg/dL (75-100) H* 02/13/21 04:54 POC Glucose 456 mg/dL (70-105) H 02/13/21 17:53 Hemoglobin A1c 11.1 % (4-6) H 02/13/21 12:19 Calcium 9.2 mg/dL (8.4-10.2) 02/13/21 04:54 Magnesium 1.90 mg/dL (1.7-2.3) 02/12/21 13:40 Total Bilirubin 0.40 mg/dL (0.1-1.2) 02/12/21 15:06 AST 9 units/L (5-40) 02/12/21 15:06 ALT 8 units/L (7-56) 02/12/21 15:06 Alkaline Phosphatase 70 units/L (35-129) 02/12/21 15:06 Troponin T < 0.010 ng/mL (0.00-0.029) 02/12/21 16:52 C-Reactive Protein 2.70 mg/dL (0.00-1.30) H 02/13/21 12:19 Total Protein 6.1 g/dL (6.3-8.2) L 02/12/21 15:06 Albumin 4.2 g/dL (3.9-5) 02/12/21 15:06 Albumin/Globulin Ratio 2.2 % 02/12/21 15:06 TSH 2.080 mlU/mL (0.270-4.200) 02/12/21 13:40 Urine Color Straw (Yellow) 02/12/21 Unknown Urine Turbidity Clear (Clear) 02/12/21 Unknown Urine pH 5.0 (5.0-7.0) 02/12/21 Unknown Ur Specific [place] 1.022 (1.003-1.030) 02/12/21 Unknown Urine Protein <15 mg/dl mg/dL (Negative) 02/12/21 Unknown Urine Glucose (UA) >=500 mg/dL (Negative) 02/12/21 Unknown Urine Ketones Neg mg/dL (Negative) 02/12/21 Unknown Urine Blood Neg (Negative) 02/12/21 Unknown Urine Nitrite Neg (Negative) 02/12/21 Unknown Urine Bilirubin Neg (Negative) 02/12/21 Unknown Urine Urobilinogen < 2.0 mg/dL (<2.0) 02/12/21 Unknown Ur Leukocyte Esterase Neg (Negative) 02/12/21 Unknown Urine WBC (Auto) < 1.0 /HPF (0.0-6.0) 02/12/21 Unknown Urine RBC (Auto) < 1.0 /HPF (0.0-6.0) 02/12/21 Unknown U Epithel Cells (Auto) < 1.0 /HPF (0-13.0) 02/12/21 Unknown Urine Mucus Few /HPF 02/12/21 Unknown Salicylates < 0.3 mg/dL (2.8-20.0) L 02/12/21 13:40 Urine Opiates Screen Negative 02/12/21 Unknown Urine Methadone Screen Negative 02/12/21 Unknown Acetaminophen 5.0 ug/mL (10.0-30.0) L 02/12/21 13:40 Ur Barbiturates Screen Negative 02/12/21 Unknown Ur Phencyclidine Scrn Negative 02/12/21 Unknown Ur Amphetamines Screen Negative 02/12/21 Unknown U Benzodiazepines Scrn Negative 02/12/21 Unknown Urine Cocaine Screen Positive 02/12/21 Unknown U Marijuana (THC) Screen Negative 02/12/21 Unknown Drugs of Abuse Note Disclamer 02/12/21 Unknown Plasma/Serum Alcohol < 0.01 % (0-0.07) 02/12/21 13:40 Active Medications - Current Medications Current Medications: Generic Name Dose Route Start Last Admin Trade Name Freq PRN Reason Stop Dose Admin Acetaminophen 650 mg 02/12/21 21:28 Acetaminophen 325 Mg Tab PO Q4H PRN Pain MILD(1-3)/Fever >100.5/MARINA Albuterol 2.5 mg 02/12/21 22:04 Albuterol 2.5 Mg/3 Ml Nebu IH Q3HRT PRN Wheezing Albuterol/Ipratropium 1 ampul 02/14/21 08:00 Ipratropium/Albuterol Sulfate 3 Ml Ampul.Neb IH BIDRT SAMI Azithromycin 500 mg 02/14/21 10:00 Azithromycin 250 Mg Tab PO QDAY [facility] Protocol Budesonide 0.25 mg 02/14/21 08:00 Budesonide 0.25 Mg/2 Ml Nebu IH Q12HRT SAMI Dextrose 50 ml 02/13/21 07:24 Dextrose 50% In Water (25gm) 50 Ml Syringe IV Q30MIN PRN Hypoglycemia Protocol Famotidine 20 mg 02/12/21 22:00 02/13/21 11:46 Famotidine 20 Mg Tab PO 20 mg BID SAMI Administration Heparin Sodium (Porcine) 5,000 unit 02/12/21 22:00 02/13/21 11:45 Heparin 5,000 Unit/1 Ml Vial SUB-Q 5,000 unit Q12HR SAMI Administration Insulin Glargine 30 units 02/13/21 08:00 02/13/21 11:42 Insulin Glargine 100 Units/Ml SUB-Q 30 units QAM SAMI Administration Insulin Glargine 15 units 02/13/21 22:00 Insulin Glargine 100 Units/Ml SUB-Q 02/13/21 22:01 ONCE ONE Insulin Human Lispro 0 unit 02/13/21 08:00 02/13/21 18:21 Insulin Lispro 100 Unit/Ml SUB-Q 10 unit Q4HR SAMI Administration Protocol Insulin Human Lispro 10 unit 02/14/21 07:30 Insulin Lispro 100 Unit/Ml SUB-Q [facility] Insulin Human Regular 0 units 02/13/21 07:30 02/13/21 18:21 Insulin Regular, Human 100 Units/1 Ml SUB-Q 10 units ACHS SAMI Administration Protocol Metoclopramide HCl 10 mg 02/12/21 21:28 Metoclopramide 10 Mg/2 Ml Inj IV Q6H PRN Nausea And Vomiting Prednisone 40 mg 02/14/21 10:00 Prednisone 20 Mg Tab PO QDAY [facility] Quetiapine Fumarate 50 mg 02/13/21 12:00 02/13/21 18:20 Quetiapine 25 Mg Tab PO 50 mg BID SAMI Administration Sertraline HCl 25 mg 02/13/21 12:00 02/13/21 18:20 Sertraline 25 Mg Tab PO 25 mg QDAY SAMI Administration Sodium Chloride 10 ml 02/12/21 22:00 02/13/21 11:47 Sodium Chloride 0.9% 10 Ml Flush Syringe IV 10 ml BID SAMI Administration Sodium Chloride 10 ml 02/12/21 21:28 Sodium Chloride 0.9% 10 Ml Flush Syringe IV PRN PRN LINE FLUSH Nutrition/Malnutrition Assess - Dietary Evaluation Nutrition/Malnutrition Findings: Nutrition Notes Start: 02/13/21 13:10 Freq: Status: Active Protocol: Document 02/13/21 13:10 CW (Rec: 02/13/21 13:13 CW [id number]) Nutrition Notes Need for Assessment generated from: MD Order,Education Initial or Follow up Brief Note Current Diagnosis Diabetes,Respiratory Failure Other Pertinent Diagnosis Bipolar disorder, Suicidal idelations, substance abuse, 1013 Current Diet Consistent Carbohydrate Diet Labs/Tests Na 136 BUN 21 BG 537 (329 on adm) A1c 11.1 Pertinent Medications Solumedrol Height 5 ft 9 in Weight 77.111 kg [place] Body Weight (kg) 72.72 BMI 25.1 Weight Status Appropriate Subjective/Other Information MD order for DM diet education . Pt remains on hold in ER. Nutrition Intervention Anticipated Discharge Needs: Consistent Carbohydrate Diet Follow-Up By: 02/15/21 Additional Comments F/U for diet education
[2021-02-13] MEDS: SODIUM CHLORIDE 0.9% 1000 ML 1,000 ML IV SCH (23:54)
[2021-02-14] MEDS: INSULIN REGULAR, HUMAN 100 UNITS/1 ML SUB-Q SCH ×4 (00:03→17:10)
[2021-02-14] MEDS: INSULIN LISPRO 100 UNIT/ML SUB-Q SCH ×7 (06:41→17:10)
[2021-02-14] MEDS: IPRATROPIUM/ALBUTEROL SULFATE 3 ML AMPUL.NEB IH SCH ×2 (08:34→21:31)
[2021-02-14] MEDS: BUDESONIDE 0.25 MG/2 ML NEBU IH SCH ×2 (08:34→21:32)
[2021-02-14] MEDS: HEPARIN 5,000 UNIT/1 ML VIAL SUB-Q SCH (10:20)
[2021-02-14] MEDS: AZITHROMYCIN 250 MG TAB PO SCH (10:20)
[2021-02-14] MEDS: predniSONE 20 MG TAB PO SCH (10:20)
[2021-02-14] MEDS: FAMOTIDINE 20 MG TAB PO SCH (10:20)
[2021-02-14] MEDS: SERTRALINE 25 MG TAB PO SCH (10:20)
[2021-02-14] MEDS: QUEtiapine 25 MG TAB PO SCH (10:29)
--- NOTE | 2021-02-14 12:29 | Progress Note ---
Subjective - Reason for Consult Consult date: 02/14/21 Reason for consult: SI - Chief Complaint Chief complaint: The patient was seen today. He is calm, cooperative and polite. He says he feels a lot better after getting some rest. He says "thanks to you." The patient denies SI/HI. He says "not today, I don't feel like that." He also denies hallucinations of any kind. The patient is asking for case assistant. He says he needs to discuss some things with her. REVIEW OF SYSTEMS Constitutional: Negative for weight loss ENT: Negative for stridor Respiratory: Negative for cough or hemoptysis All other systems reviewed and are negative MENTAL STATUS EXAMINATION General Appearance and Behavior: Age appropriate, dressed appropriately, calm and uncooperative Cooperation: cooperative Psychomotor Behavior: psychomotor normal Mood: "anxious, depressed" Affect and affective range: Constricted Thought Process: goal directed Thought Content: hallucinations, SI Speech: Normal volume, Regular rate and rhythm, Suicidal Ideation: Yes Homicidal Ideation: Denies Hallucinations: Auditory Delusions: None elicited Impulse Control: Unimpaired Insight and Judgment: limited insight and fair judgment, Memory: Normal Attention: divided Orientation: Alert, oriented Assessment and Plan (1) Schizophrenia (2) Cocaine Use Disorder Treatment plan d/c 1013 Zoloft 25mg po daily Seroquel 50mg po BID Case management Medical: per primary Risks, benefits and alternatives of medications discussed with the patient, questions answered and consent obtained from patient. PSYCHOTHERAPY: Supportive psychotherapy provided MEDICAL: Per primary team DELIRIUM PRECAUTIONS: Please re-orient patient frequently, keep lights on during the day, and minimize benzodiazepines and opiates as these medications could worsen patient's confusion. FARM MANAGEMENT PROFESSOR: Per medical team DISPOSITION: Do not recommend acute inpatient psychiatric hospitalization. The candy supervisor to give the patient all necessary resources He is to abstain from all illicit drug use. The patient to follow up in 7 to 14 days upon discharge Will sing off. Thank you for the consult. Please contact with any questions and/or concerns. Case staffed with Dr. Dodd Mental Status Exam - Vital signs Last Vital Signs Temp 97.5 F L 02/14/21 10:43 Pulse 86 02/14/21 10:43 Resp 18 02/14/21 10:43 BP 121/75 02/14/21 10:43 Pulse Ox 97 02/14/21 11:28
[2021-02-14] MEDS: INSULIN GLARGINE 100 UNITS/ML SUB-Q SCH (13:39)
[2021-02-14] MEDS: ACETAMINOPHEN 325 MG TAB PO PRN (17:08)
[2021-02-14] MEDS: SODIUM CHLORIDE 0.9% 1000 ML 1,000 ML IV SCH (17:10)
--- NOTE | 2021-02-14 22:30 | Progress Note ---
Assessment and Plan Assessment and plan: 55-year-old male with history of asthma and diabetes and bipolar disorder comes in for shortness of breath of 3 days duration. Cough productive of mucoid sputum. Patient has history of asthma from childhood. Wheezing noted in ED. Initial oxygen saturations were 84% on room air. 91% after treatment. Blood glucose was 400. Patient says that he ran out of his inhalers. History of cocaine use and UDS positive for cocaine here. He says but for the past few days he's been feeling suicidal and hearing voices telling him to kill himself. Patient is not taking any psych medications at present. He used to take Zoloft and Seroquel. Placed on a 1013 and psych consulted. (1) Acute respiratory failure with hypoxia Current Visit: Yes Status: Acute Plan to address problem: Patient was saturating at 84% on room air at the time of admission to the emergency room With treatment. Oxygen saturation came up to 91%. Patient to continue having nebulizer treatments and placed on IV Solu-Medrol and IV antibiotics. (2) Asthma exacerbation Current Visit: Yes Status: Acute Qualifiers: Asthma severity: severe Asthma persistence: persistent Qualified Code(s): J45.51 - Severe persistent asthma with (acute) exacerbation Plan to address problem: Chest x-ray showed no acute process. Denies exposure to COVID-19. However or dered COVID-19 PCR test. Patient denies fever or chills. Patient is on DuoNebs [id number] and as needed, placed on IV antibiotics Change Solu-Medrol to prednisone for severe hyperglycemia Dyspnea and wheezing improved since admitted. (3) IDDM, A1c 11.1 Current Visit: Yes Status: Acute Plan to address problem: Uncontrolled likely from noncompliance Patient initiated on long-acting insulin and short-acting insulin AC Coverage with high-dose sliding scale Changed to IV Solu-Medrol to prednisone for severe hyperglycemia Added Metformin today. Add glipizide letter. (4) Hypertension Current Visit: Yes Status: Chronic Qualifiers: Hypertension type: primary hypertension Qualified Code(s): I10 - Essential (primary) hypertension Plan to address problem: Continue antihypertensives (5) history of schizophrenia and suicidal ideations Current Visit: Yes Status: Acute Plan to address problem: Paranoid and hearing voices telling him to kill himself, placed patient under 1013 Mental health consulted, following, recommending inpatient psych evaluation 1013 canceled by psych on now 02/14 as not suicidal anymore. (6) Cocaine abuse Current Visit: Yes Status: Chronic Qualifiers: Substance use status: uncomplicated Qualified Code(s): F14.20 - Cocaine dependence, uncomplicated Plan to address problem: Urine drug screen positive for cocaine. Counseled about cocaine dependence (7) DVT prophylaxis Current Visit: Yes Status: Acute Plan to address problem: On anticoagulation and GI prophylaxis Discussed with the nursing staff History Interval history: Patient is alert and oriented without acute distress. Psych discontinue 1013 today. However patient reports hearing voices which is disturbing to him. Blood glucose elevated on steroids. Still wheezing. Hospitalist Physical - Constitutional Vitals: Temp Pulse Resp BP Pulse Ox 97.5 F L 84 20 110/74 92 02/14/21 16:08 02/14/21 21:38 02/14/21 21:38 02/14/21 16:08 02/14/21 16:08 General appearance: Present: no acute distress, disheveled, other (Irritable and he does not want to be bothered.) - EENT Eyes: Present: PERRL, EOM intact ENT: clear oral mucosa - Neck Neck: Present: supple - Respiratory Respiratory: bilateral: wheezing (Moderate diffuse) - Cardiovascular Rhythm: regular - Extremities Extremities: No edema - Abdominal General gastrointestinal: soft, non-tender, non-distended - Integumentary Integumentary: Present: warm. Absent: rash - Psychiatric Psychiatric: cooperative (Reporting hearing voices) - Neurologic Neurologic: no focal deficits, moves all extremities HEART Score - HEART Score Troponin: Troponin T < 0.010 ng/mL (0.00-0.029) 02/12/21 16:52 Results - Labs CBC & Chem 7: 02/13/21 04:54 02/15/21 13:48 Labs: Laboratory Last Values WBC 6.5 K/mm3 (4.5-11.0) 02/13/21 04:54 RBC 5.21 M/mm3 (3.65-5.03) H 02/13/21 04:54 Hgb 14.4 gm/dl (11.8-15.2) 02/13/21 04:54 Hct 45.7 % (35.5-45.6) H 02/13/21 04:54 MCV 88 fl (84-94) 02/13/21 04:54 MCH 28 pg (28-32) 02/13/21 04:54 MCHC 32 % (32-34) 02/13/21 04:54 RDW 13.7 % (13.2-15.2) 02/13/21 04:54 Plt Count 207 K/mm3 (140-440) 02/13/21 04:54 Lymph % (Auto) 17.8 % (13.4-35.0) 02/12/21 13:40 [place] % (Auto) 5.4 % (0.0-7.3) 02/12/21 13:40 Eos % (Auto) 6.8 % (0.0-4.3) H 02/12/21 13:40 Baso % (Auto) 0.4 % (0.0-1.8) 02/12/21 13:40 Lymph # (Auto) 1.7 K/mm3 (1.2-5.4) 02/12/21 13:40 [place] # (Auto) 0.5 K/mm3 (0.0-0.8) 02/12/21 13:40 Eos # (Auto) 0.6 K/mm3 (0.0-0.4) H 02/12/21 13:40 Baso # (Auto) 0.0 K/mm3 (0.0-0.1) 02/12/21 13:40 Add Manual Diff Complete 02/13/21 04:54 Total Counted 100 02/13/21 04:54 Seg Neutrophils % [place] 02/13/21 04:54 Seg Neuts % (Manual) 96.0 % (40.0-70.0) H 02/13/21 04:54 Band Neutrophils % 1.0 % 02/13/21 04:54 Lymphocytes % (Manual) 3.0 % (13.4-35.0) L 02/13/21 04:54 Nucleated RBC % Not Reportable 02/13/21 04:54 Seg Neutrophils # 6.6 K/mm3 (1.8-7.7) 02/12/21 13:40 Seg Neutrophils # Man 6.2 K/mm3 (1.8-7.7) 02/13/21 04:54 Band Neutrophils # 0.1 K/mm3 02/13/21 04:54 Lymphocytes # (Manual) 0.2 K/mm3 (1.2-5.4) L 02/13/21 04:54 Abs React Lymphs (Man) 0.0 K/mm3 02/13/21 04:54 Monocytes # (Manual) 0.0 K/mm3 (0.0-0.8) 02/13/21 04:54 Eosinophils # (Manual) 0.0 K/mm3 (0.0-0.4) 02/13/21 04:54 Basophils # (Manual) 0.0 K/mm3 (0.0-0.1) 02/13/21 04:54 Metamyelocytes # 0.0 K/mm3 02/13/21 04:54 Myelocytes # 0.0 K/mm3 02/13/21 04:54 Promyelocytes # 0.0 K/mm3 02/13/21 04:54 Blast Cells # 0.0 K/mm3 02/13/21 04:54 WBC Morphology Not Reportable 02/13/21 04:54 Hypersegmented Neuts Not Reportable 02/13/21 04:54 Hyposegmented Neuts Not Reportable 02/13/21 04:54 Hypogranular Neuts Not Reportable 02/13/21 04:54 Smudge Cells Not Reportable 02/13/21 04:54 Toxic Granulation Not Reportable 02/13/21 04:54 Toxic Vacuolation Not Reportable 02/13/21 04:54 Dohle Bodies Not Reportable 02/13/21 04:54 Pelger-Huet Anomaly Not Reportable 02/13/21 04:54 Katey Rods Not Reportable 02/13/21 04:54 Platelet Estimate Consistent w auto 02/13/21 04:54 Clumped Platelets Not Reportable 02/13/21 04:54 Plt Clumps, EDTA Not Reportable 02/13/21 04:54 Large Platelets Not Reportable 02/13/21 04:54 Giant Platelets Not Reportable 02/13/21 04:54 Platelet Satelliting Not Reportable 02/13/21 04:54 Plt Morphology Comment Not Reportable 02/13/21 04:54 RBC Morphology Not Reportable 02/13/21 04:54 Dimorphic RBCs Not Reportable 02/13/21 04:54 Polychromasia Not Reportable 02/13/21 04:54 Hypochromasia Not Reportable 02/13/21 04:54 Poikilocytosis Not Reportable 02/13/21 04:54 Anisocytosis 1+ 02/13/21 04:54 Microcytosis Not Reportable 02/13/21 04:54 Macrocytosis Not Reportable 02/13/21 04:54 Spherocytes Not Reportable 02/13/21 04:54 Pappenheimer Bodies Not Reportable 02/13/21 04:54 Sickle Cells Not Reportable 02/13/21 04:54 Target Cells Not Reportable 02/13/21 04:54 Tear Drop Cells Not Reportable 02/13/21 04:54 Ovalocytes Not Reportable 02/13/21 04:54 Helmet Cells Not Reportable 02/13/21 04:54 [place] Bodies Not Reportable 02/13/21 04:54 [place] Rings Not Reportable 02/13/21 04:54 [place] Cells Not Reportable 02/13/21 04:54 Bite Cells Not Reportable 02/13/21 04:54 Crenated Cell Not Reportable 02/13/21 04:54 Elliptocytes Not Reportable 02/13/21 04:54 Acanthocytes (Spur) Not Reportable 02/13/21 04:54 Rouleaux Not Reportable 02/13/21 04:54 Hemoglobin C Crystals Not Reportable 02/13/21 04:54 Schistocytes Not Reportable 02/13/21 04:54 Malaria parasites Not Reportable 02/13/21 04:54 Tony Bodies Not Reportable 02/13/21 04:54 Hem Pathologist Commnt No 02/13/21 04:54 Sodium 136 mmol/L (137-145) L 02/13/21 04:54 Potassium 4.7 mmol/L (3.6-5.0) 02/13/21 04:54 Chloride 97.3 mmol/L (98-107) L 02/13/21 04:54 Carbon Dioxide 19 mmol/L (22-30) L 02/13/21 04:54 Anion Gap 24 mmol/L 02/13/21 04:54 BUN 21 mg/dL (9-20) H 02/13/21 04:54 Creatinine 1.1 mg/dL (0.8-1.3) 02/13/21 04:54 Estimated GFR > 60 ml/min 02/13/21 04:54 BUN/Creatinine Ratio 19 % 02/13/21 04:54 Glucose 537 mg/dL (75-100) H* 02/13/21 04:54 POC Glucose 240 mg/dL (70-105) H 02/14/21 21:48 Hemoglobin A1c 11.1 % (4-6) H 02/13/21 12:19 Calcium 9.2 mg/dL (8.4-10.2) 02/13/21 04:54 Magnesium 1.90 mg/dL (1.7-2.3) 02/12/21 13:40 Total Bilirubin 0.40 mg/dL (0.1-1.2) 02/12/21 15:06 AST 9 units/L (5-40) 02/12/21 15:06 ALT 8 units/L (7-56) 02/12/21 15:06 Alkaline Phosphatase 70 units/L (35-129) 02/12/21 15:06 Troponin T < 0.010 ng/mL (0.00-0.029) 02/12/21 16:52 C-Reactive Protein 2.70 mg/dL (0.00-1.30) H 02/13/21 12:19 Total Protein 6.1 g/dL (6.3-8.2) L 02/12/21 15:06 Albumin 4.2 g/dL (3.9-5) 02/12/21 15:06 Albumin/Globulin Ratio 2.2 % 02/12/21 15:06 TSH 2.080 mlU/mL (0.270-4.200) 02/12/21 13:40 Urine Color Straw (Yellow) 02/12/21 Unknown Urine Turbidity Clear (Clear) 02/12/21 Unknown Urine pH 5.0 (5.0-7.0) 02/12/21 Unknown Ur Specific [place] 1.022 (1.003-1.030) 02/12/21 Unknown Urine Protein <15 mg/dl mg/dL (Negative) 02/12/21 Unknown Urine Glucose (UA) >=500 mg/dL (Negative) 02/12/21 Unknown Urine Ketones Neg mg/dL (Negative) 02/12/21 Unknown Urine Blood Neg (Negative) 02/12/21 Unknown Urine Nitrite Neg (Negative) 02/12/21 Unknown Urine Bilirubin Neg (Negative) 02/12/21 Unknown Urine Urobilinogen < 2.0 mg/dL (<2.0) 02/12/21 Unknown Ur Leukocyte Esterase Neg (Negative) 02/12/21 Unknown Urine WBC (Auto) < 1.0 /HPF (0.0-6.0) 02/12/21 Unknown Urine RBC (Auto) < 1.0 /HPF (0.0-6.0) 02/12/21 Unknown U Epithel Cells (Auto) < 1.0 /HPF (0-13.0) 02/12/21 Unknown Urine Mucus Few /HPF 02/12/21 Unknown Salicylates < 0.3 mg/dL (2.8-20.0) L 02/12/21 13:40 Urine Opiates Screen Negative 02/12/21 Unknown Urine Methadone Screen Negative 02/12/21 Unknown Acetaminophen 5.0 ug/mL (10.0-30.0) L 02/12/21 13:40 Ur Barbiturates Screen Negative 02/12/21 Unknown Ur Phencyclidine Scrn Negative 02/12/21 Unknown Ur Amphetamines Screen Negative 02/12/21 Unknown U Benzodiazepines Scrn Negative 02/12/21 Unknown Urine Cocaine Screen Positive 02/12/21 Unknown U Marijuana (THC) Screen Negative 02/12/21 Unknown Drugs of Abuse Note Disclamer 02/12/21 Unknown Plasma/Serum Alcohol < 0.01 % (0-0.07) 02/12/21 13:40 Coronavirus (PCR) Negative (Negative) 02/14/21 10:00 White/IV: Voiding Method Toilet Active Medications - Current Medications Current Medications: Generic Name Dose Route Start Last Admin Trade Name Freq PRN Reason Stop Dose Admin Acetaminophen 650 mg 02/12/21 21:28 02/14/21 17:08 Acetaminophen 325 Mg Tab PO 650 mg Q4H PRN Administration Pain MILD(1-3)/Fever >100.5/MARINA Albuterol 2.5 mg 02/12/21 22:04 Albuterol 2.5 Mg/3 Ml Nebu IH Q3HRT PRN Wheezing Albuterol/Ipratropium 1 ampul 02/14/21 08:00 02/14/21 21:31 Ipratropium/Albuterol Sulfate 3 Ml Ampul.Neb IH 1 ampul BIDRT SAMI Administration Azithromycin 500 mg 02/14/21 10:00 02/14/21 10:20 Azithromycin 250 Mg Tab PO 500 mg QDAY SAMI Administration Protocol Budesonide 0.25 mg 02/14/21 08:00 02/14/21 21:32 Budesonide 0.25 Mg/2 Ml Nebu IH 0.25 mg Q12HRT SAMI Administration Dextrose 50 ml 02/13/21 07:24 Dextrose 50% In Water (25gm) 50 Ml Syringe IV Q30MIN PRN Hypoglycemia Protocol Famotidine 20 mg 02/12/21 22:00 02/14/21 10:20 Famotidine 20 Mg Tab PO 20 mg BID SAMI Administration Heparin Sodium (Porcine) 5,000 unit 02/12/21 22:00 02/14/21 10:20 Heparin 5,000 Unit/1 Ml Vial SUB-Q 5,000 unit Q12HR SAMI Administration Sodium Chloride 1,000 mls @ 150 mls/hr 02/13/21 22:30 02/14/21 17:10 Nacl 0.9% 1000 Ml IV 02/15/21 05:09 150 mls/hr DIRECT SAMI Administration Insulin Glargine 30 units 02/14/21 22:00 Insulin Glargine 100 Units/Ml SUB-Q BID SAMI Insulin Human Lispro 10 unit 02/14/21 07:30 02/14/21 17:10 Insulin Lispro 100 Unit/Ml SUB-Q 10 unit AC SAMI Administration Insulin Human Regular 0 units 02/13/21 07:30 02/14/21 17:10 Insulin Regular, Human 100 Units/1 Ml SUB-Q 3 units ACHS SAMI Administration Protocol Metoclopramide HCl 10 mg 02/12/21 21:28 Metoclopramide 10 Mg/2 Ml Inj IV Q6H PRN Nausea And Vomiting Prednisone 40 mg 02/14/21 10:00 02/14/21 10:20 Prednisone 20 Mg Tab PO 40 mg QDAY SAMI Administration Quetiapine Fumarate 50 mg 02/13/21 12:00 02/14/21 10:29 Quetiapine 25 Mg Tab PO 50 mg BID SAMI Administration Sertraline HCl 25 mg 02/13/21 12:00 02/14/21 10:20 Sertraline 25 Mg Tab PO 25 mg QDAY SAMI Administration Sodium Chloride 10 ml 02/12/21 22:00 02/14/21 13:32 Sodium Chloride 0.9% 10 Ml Flush Syringe IV 10 ml BID SAMI Administration Sodium Chloride 10 ml 02/12/21 21:28 Sodium Chloride 0.9% 10 Ml Flush Syringe IV PRN PRN LINE FLUSH Nutrition/Malnutrition Assess - Dietary Evaluation Nutrition/Malnutrition Findings: Nutrition Notes Start: 02/13/21 13:10 Freq: Status: Active Protocol: Document 02/13/21 13:10 CW (Rec: 02/13/21 13:13 CW [id number]) Nutrition Notes Need for Assessment generated from: MD Order,Education Initial or Follow up Brief Note Current Diagnosis Diabetes,Respiratory Failure Other Pertinent Diagnosis Bipolar disorder, Suicidal idelations, substance abuse, 1013 Current Diet Consistent Carbohydrate Diet Labs/Tests Na 136 BUN 21 BG 537 (329 on adm) A1c 11.1 Pertinent Medications Solumedrol Height 5 ft 9 in Weight 77.111 kg [place] Body Weight (kg) 72.72 BMI 25.1 Weight Status Appropriate Subjective/Other Information MD order for DM diet education . Pt remains on hold in ER. Nutrition Intervention Anticipated Discharge Needs: Consistent Carbohydrate Diet Follow-Up By: 02/15/21 Additional Comments F/U for diet education
[2021-02-15] MEDS: HEPARIN 5,000 UNIT/1 ML VIAL SUB-Q SCH ×3 (00:28→21:07)
[2021-02-15] MEDS: FAMOTIDINE 20 MG TAB PO SCH ×3 (00:29→21:07)
[2021-02-15] MEDS: QUEtiapine 25 MG TAB PO SCH ×3 (00:29→21:06)
[2021-02-15] MEDS: INSULIN GLARGINE 100 UNITS/ML SUB-Q SCH ×3 (00:32→22:25)
[2021-02-15] MEDS: INSULIN REGULAR, HUMAN 100 UNITS/1 ML SUB-Q SCH ×5 (00:34→22:25)
[2021-02-15] MEDS: BUDESONIDE 0.25 MG/2 ML NEBU IH SCH ×2 (08:06→19:36)
[2021-02-15] MEDS: IPRATROPIUM/ALBUTEROL SULFATE 3 ML AMPUL.NEB IH SCH ×2 (08:07→19:36)
[2021-02-15] MEDS: AZITHROMYCIN 250 MG TAB PO SCH (09:24)
[2021-02-15] MEDS: predniSONE 20 MG TAB PO SCH (09:24)
[2021-02-15] MEDS: INSULIN LISPRO 100 UNIT/ML SUB-Q SCH ×3 (09:29→17:32)
[2021-02-15] MEDS: SERTRALINE 25 MG TAB PO SCH (09:31)
[2021-02-15] MEDS: metFORMIN XR 500MG TAB PO SCH ×2 (12:40→17:31)
--- NOTE | 2021-02-15 19:36 | Progress Note ---
Assessment and Plan Assessment and plan: 55-year-old male with history of asthma and diabetes and bipolar disorder comes in for shortness of breath of 3 days duration. Cough productive of mucoid sputum. Patient has history of asthma from childhood. Wheezing noted in ED. Initial oxygen saturations were 84% on room air. 91% after treatment. Blood glucose was 400. Patient says that he ran out of his inhalers. History of cocaine use and UDS positive for cocaine here. He says but for the past few days he's been feeling suicidal and hearing voices telling him to kill himself. Patient is not taking any psych medications at present. He used to take Zoloft and Seroquel. Placed on a 1013 and psych consulted. (1) Acute respiratory failure with hypoxia Current Visit: Yes Status: Acute Plan to address problem: Patient was saturating at 84% on room air at the time of admission to the emergency room With treatment. Oxygen saturation came up to 91%. Patient to continue having nebulizer treatments and placed on IV Solu-Medrol and IV antibiotics. (2) Asthma exacerbation Current Visit: Yes Status: Acute Qualifiers: Asthma severity: severe Asthma persistence: persistent Qualified Code(s): J45.51 - Severe persistent asthma with (acute) exacerbation Plan to address problem: Chest x-ray showed no acute process. Denies exposure to COVID-19. However or dered COVID-19 PCR test. Patient denies fever or chills. Patient is on DuoNebs [id number] and as needed, placed on IV antibiotics Change Solu-Medrol to prednisone for severe hyperglycemia Dyspnea and wheezing improved since admitted. (3) IDDM, A1c 11.1 Current Visit: Yes Status: Acute Plan to address problem: Uncontrolled likely from noncompliance Patient initiated on long-acting insulin and short-acting insulin AC Coverage with high-dose sliding scale Changed to IV Solu-Medrol to prednisone for severe hyperglycemia Added Metformin today. Add glipizide letter. (4) Hypertension Current Visit: Yes Status: Chronic Qualifiers: Hypertension type: primary hypertension Qualified Code(s): I10 - Essential (primary) hypertension Plan to address problem: Continue antihypertensives (5) history of schizophrenia and suicidal ideations Current Visit: Yes Status: Acute Plan to address problem: Paranoid and hearing voices telling him to kill himself, placed patient under 1013 Mental health consulted, following, recommending inpatient psych evaluation 1013 canceled by psych on now 02/14 as not suicidal anymore. Patient reported hearing voices telling him to look for people hiding under the bed Previously treated with Seroquel, increased dose from 50 to 100 mg twice daily Add Risperdal 4 mg nightly Patient is calm and cooperative (6) Cocaine abuse Current Visit: Yes Status: Chronic Qualifiers: Substance use status: uncomplicated Qualified Code(s): F14.20 - Cocaine dependence, uncomplicated Plan to address problem: Urine drug screen positive for cocaine. Counseled about cocaine dependence (7) DVT prophylaxis Current Visit: Yes Status: Acute Plan to address problem: On anticoagulation and GI prophylaxis Disposition: Possible discharge in 1 to 2 days Discussed with the nursing staff History Interval history: Patient is alert and oriented without acute distress. Psych discontinue 1013 on 02/14. However patient reports hearing voices which is disturbing to him. Blood glucose elevated on steroids. Still wheezing. Hospitalist Physical - Constitutional Vitals: Temp Pulse Resp BP Pulse Ox 97.9 F 83 18 121/81 93 02/15/21 16:45 02/15/21 16:45 02/15/21 16:45 02/15/21 16:45 02/15/21 12:00 General appearance: Present: no acute distress, disheveled, other (Irritable and he does not want to be bothered.) - EENT Eyes: Present: PERRL, EOM intact ENT: clear oral mucosa - Neck Neck: Present: supple - Respiratory Respiratory effort: normal Respiratory: bilateral: wheezing (Diffuse and moderate) - Cardiovascular Rhythm: regular - Extremities Extremities: No edema - Abdominal General gastrointestinal: soft, non-tender, non-distended - Integumentary Integumentary: Absent: rash - Psychiatric Psychiatric: cooperative, other (Calm, reporting reporting hearing voices) - Neurologic Neurologic: no focal deficits, moves all extremities HEART Score - HEART Score Troponin: Troponin T < 0.010 ng/mL (0.00-0.029) 02/12/21 16:52 Results - Labs CBC & Chem 7: 02/13/21 04:54 02/15/21 13:48 Labs: Laboratory Last Values WBC 6.5 K/mm3 (4.5-11.0) 02/13/21 04:54 RBC 5.21 M/mm3 (3.65-5.03) H 02/13/21 04:54 Hgb 14.4 gm/dl (11.8-15.2) 02/13/21 04:54 Hct 45.7 % (35.5-45.6) H 02/13/21 04:54 MCV 88 fl (84-94) 02/13/21 04:54 MCH 28 pg (28-32) 02/13/21 04:54 MCHC 32 % (32-34) 02/13/21 04:54 RDW 13.7 % (13.2-15.2) 02/13/21 04:54 Plt Count 207 K/mm3 (140-440) 02/13/21 04:54 Lymph % (Auto) 17.8 % (13.4-35.0) 02/12/21 13:40 [place] % (Auto) 5.4 % (0.0-7.3) 02/12/21 13:40 Eos % (Auto) 6.8 % (0.0-4.3) H 02/12/21 13:40 Baso % (Auto) 0.4 % (0.0-1.8) 02/12/21 13:40 Lymph # (Auto) 1.7 K/mm3 (1.2-5.4) 02/12/21 13:40 [place] # (Auto) 0.5 K/mm3 (0.0-0.8) 02/12/21 13:40 Eos # (Auto) 0.6 K/mm3 (0.0-0.4) H 02/12/21 13:40 Baso # (Auto) 0.0 K/mm3 (0.0-0.1) 02/12/21 13:40 Add Manual Diff Complete 02/13/21 04:54 Total Counted 100 02/13/21 04:54 Seg Neutrophils % Machine Precision Etcher 02/13/21 04:54 Seg Neuts % (Manual) 96.0 % (40.0-70.0) H 02/13/21 04:54 Band Neutrophils % 1.0 % 02/13/21 04:54 Lymphocytes % (Manual) 3.0 % (13.4-35.0) L 02/13/21 04:54 Nucleated RBC % Not Reportable 02/13/21 04:54 Seg Neutrophils # 6.6 K/mm3 (1.8-7.7) 02/12/21 13:40 Seg Neutrophils # Man 6.2 K/mm3 (1.8-7.7) 02/13/21 04:54 Band Neutrophils # 0.1 K/mm3 02/13/21 04:54 Lymphocytes # (Manual) 0.2 K/mm3 (1.2-5.4) L 02/13/21 04:54 Abs React Lymphs (Man) 0.0 K/mm3 02/13/21 04:54 Monocytes # (Manual) 0.0 K/mm3 (0.0-0.8) 02/13/21 04:54 Eosinophils # (Manual) 0.0 K/mm3 (0.0-0.4) 02/13/21 04:54 Basophils # (Manual) 0.0 K/mm3 (0.0-0.1) 02/13/21 04:54 Metamyelocytes # 0.0 K/mm3 02/13/21 04:54 Myelocytes # 0.0 K/mm3 02/13/21 04:54 Promyelocytes # 0.0 K/mm3 02/13/21 04:54 Blast Cells # 0.0 K/mm3 02/13/21 04:54 WBC Morphology Not Reportable 02/13/21 04:54 Hypersegmented Neuts Not Reportable 02/13/21 04:54 Hyposegmented Neuts Not Reportable 02/13/21 04:54 Hypogranular Neuts Not Reportable 02/13/21 04:54 Smudge Cells Not Reportable 02/13/21 04:54 Toxic Granulation Not Reportable 02/13/21 04:54 Toxic Vacuolation Not Reportable 02/13/21 04:54 Dohle Bodies Not Reportable 02/13/21 04:54 Pelger-Huet Anomaly Not Reportable 02/13/21 04:54 Katey Rods Not Reportable 02/13/21 04:54 Platelet Estimate Consistent w auto 02/13/21 04:54 Clumped Platelets Not Reportable 02/13/21 04:54 Plt Clumps, EDTA Not Reportable 02/13/21 04:54 Large Platelets Not Reportable 02/13/21 04:54 Giant Platelets Not Reportable 02/13/21 04:54 Platelet Satelliting Not Reportable 02/13/21 04:54 Plt Morphology Comment Not Reportable 02/13/21 04:54 RBC Morphology Not Reportable 02/13/21 04:54 Dimorphic RBCs Not Reportable 02/13/21 04:54 Polychromasia Not Reportable 02/13/21 04:54 Hypochromasia Not Reportable 02/13/21 04:54 Poikilocytosis Not Reportable 02/13/21 04:54 Anisocytosis 1+ 02/13/21 04:54 Microcytosis Not Reportable 02/13/21 04:54 Macrocytosis Not Reportable 02/13/21 04:54 Spherocytes Not Reportable 02/13/21 04:54 Pappenheimer Bodies Not Reportable 02/13/21 04:54 Sickle Cells Not Reportable 02/13/21 04:54 Target Cells Not Reportable 02/13/21 04:54 Tear Drop Cells Not Reportable 02/13/21 04:54 Ovalocytes Not Reportable 02/13/21 04:54 Helmet Cells Not Reportable 02/13/21 04:54 Henry-Lucas Bodies Not Reportable 02/13/21 04:54 [place] Rings Not Reportable 02/13/21 04:54 Mando Cells Not Reportable 02/13/21 04:54 Bite Cells Not Reportable 02/13/21 04:54 Crenated Cell Not Reportable 02/13/21 04:54 Elliptocytes Not Reportable 02/13/21 04:54 Acanthocytes (Spur) Not Reportable 02/13/21 04:54 Rouleaux Not Reportable 02/13/21 04:54 Hemoglobin C Crystals Not Reportable 02/13/21 04:54 Schistocytes Not Reportable 02/13/21 04:54 Malaria parasites Not Reportable 02/13/21 04:54 Tony Bodies Not Reportable 02/13/21 04:54 Hem Pathologist Commnt No 02/13/21 04:54 Sodium 136 mmol/L (137-145) L 02/13/21 04:54 Potassium 4.7 mmol/L (3.6-5.0) 02/13/21 04:54 Chloride 97.3 mmol/L (98-107) L 02/13/21 04:54 Carbon Dioxide 19 mmol/L (22-30) L 02/13/21 04:54 Anion Gap 24 mmol/L 02/13/21 04:54 BUN 21 mg/dL (9-20) H 02/13/21 04:54 Creatinine 1.1 mg/dL (0.8-1.3) 02/13/21 04:54 Estimated GFR > 60 ml/min 02/13/21 04:54 BUN/Creatinine Ratio 19 % 02/13/21 04:54 Glucose 137 mg/dL (75-100) H 02/15/21 13:48 POC Glucose 250 mg/dL (70-105) H 02/15/21 15:02 Hemoglobin A1c 11.1 % (4-6) H 02/13/21 12:19 Calcium 9.2 mg/dL (8.4-10.2) 02/13/21 04:54 Magnesium 1.90 mg/dL (1.7-2.3) 02/12/21 13:40 Total Bilirubin 0.40 mg/dL (0.1-1.2) 02/12/21 15:06 AST 9 units/L (5-40) 02/12/21 15:06 ALT 8 units/L (7-56) 02/12/21 15:06 Alkaline Phosphatase 70 units/L (35-129) 02/12/21 15:06 Troponin T < 0.010 ng/mL (0.00-0.029) 02/12/21 16:52 C-Reactive Protein 2.70 mg/dL (0.00-1.30) H 02/13/21 12:19 Total Protein 6.1 g/dL (6.3-8.2) L 02/12/21 15:06 Albumin 4.2 g/dL (3.9-5) 02/12/21 15:06 Albumin/Globulin Ratio 2.2 % 02/12/21 15:06 TSH 2.080 mlU/mL (0.270-4.200) 02/12/21 13:40 Urine Color Straw (Yellow) 02/12/21 Unknown Urine Turbidity Clear (Clear) 02/12/21 Unknown Urine pH 5.0 (5.0-7.0) 02/12/21 Unknown Ur Specific [place] 1.022 (1.003-1.030) 02/12/21 Unknown Urine Protein <15 mg/dl mg/dL (Negative) 02/12/21 Unknown Urine Glucose (UA) >=500 mg/dL (Negative) 02/12/21 Unknown Urine Ketones Neg mg/dL (Negative) 02/12/21 Unknown Urine Blood Neg (Negative) 02/12/21 Unknown Urine Nitrite Neg (Negative) 02/12/21 Unknown Urine Bilirubin Neg (Negative) 02/12/21 Unknown Urine Urobilinogen < 2.0 mg/dL (<2.0) 02/12/21 Unknown Ur Leukocyte Esterase Neg (Negative) 02/12/21 Unknown Urine WBC (Auto) < 1.0 /HPF (0.0-6.0) 02/12/21 Unknown Urine RBC (Auto) < 1.0 /HPF (0.0-6.0) 02/12/21 Unknown U Epithel Cells (Auto) < 1.0 /HPF (0-13.0) 02/12/21 Unknown Urine Mucus Few /HPF 02/12/21 Unknown Salicylates < 0.3 mg/dL (2.8-20.0) L 02/12/21 13:40 Urine Opiates Screen Negative 02/12/21 Unknown Urine Methadone Screen Negative 02/12/21 Unknown Acetaminophen 5.0 ug/mL (10.0-30.0) L 02/12/21 13:40 Ur Barbiturates Screen Negative 02/12/21 Unknown Ur Phencyclidine Scrn Negative 02/12/21 Unknown Ur Amphetamines Screen Negative 02/12/21 Unknown U Benzodiazepines Scrn Negative 02/12/21 Unknown Urine Cocaine Screen Positive 02/12/21 Unknown U Marijuana (THC) Screen Negative 02/12/21 Unknown Drugs of Abuse Note Disclamer 02/12/21 Unknown Plasma/Serum Alcohol < 0.01 % (0-0.07) 02/12/21 13:40 Coronavirus (PCR) Negative (Negative) 02/14/21 10:00 White/IV: Voiding Method Toilet Active Medications - Current Medications Current Medications: Generic Name Dose Route Start Last Admin Trade Name Freq PRN Reason Stop Dose Admin Acetaminophen 650 mg 02/12/21 21:28 02/14/21 17:08 Acetaminophen 325 Mg Tab PO 650 mg Q4H PRN Administration Pain MILD(1-3)/Fever >100.5/MARINA Albuterol 2.5 mg 02/12/21 22:04 Albuterol 2.5 Mg/3 Ml Nebu IH Q3HRT PRN Wheezing Albuterol/Ipratropium 1 ampul 02/14/21 08:00 02/15/21 08:07 Ipratropium/Albuterol Sulfate 3 Ml Ampul.Neb IH 1 ampul BIDRT SAMI Administration Azithromycin 500 mg 02/14/21 10:00 02/15/21 09:24 Azithromycin 250 Mg Tab PO 500 mg QDAY SAMI Administration Protocol Budesonide 0.25 mg 02/14/21 08:00 02/15/21 08:06 Budesonide 0.25 Mg/2 Ml Nebu IH 0.25 mg Q12HRT SMAI Administration Dextrose 50 ml 02/13/21 07:24 Dextrose 50% In Water (25gm) 50 Ml Syringe IV Q30MIN PRN Hypoglycemia Protocol Famotidine 20 mg 02/12/21 22:00 02/15/21 09:24 Famotidine 20 Mg Tab PO 20 mg BID SAMI Administration Heparin Sodium (Porcine) 5,000 unit 02/12/21 22:00 02/15/21 09:24 Heparin 5,000 Unit/1 Ml Vial SUB-Q 5,000 unit Q12HR SAMI Administration Insulin Glargine 30 units 02/14/21 22:00 02/15/21 09:25 Insulin Glargine 100 Units/Ml SUB-Q 30 units BID SAMI Administration Insulin Human Lispro 10 unit 02/14/21 07:30 02/15/21 17:32 Insulin Lispro 100 Unit/Ml SUB-Q 10 unit AC SAMI Administration Insulin Human Regular 0 units 02/13/21 07:30 02/15/21 17:31 Insulin Regular, Human 100 Units/1 Ml SUB-Q 4 units ACHS SAMI Administration Protocol Metformin HCl 500 mg 02/15/21 11:00 02/15/21 17:31 Metformin Xr 500mg Tab PO 500 mg BIDDIAB SAMI Administration Metoclopramide HCl 10 mg 02/12/21 21:28 Metoclopramide 10 Mg/2 Ml Inj IV Q6H PRN Nausea And Vomiting Prednisone 40 mg 02/14/21 10:00 02/15/21 09:24 Prednisone 20 Mg Tab PO 40 mg QDAY SAMI Administration Quetiapine Fumarate 50 mg 02/13/21 12:00 02/15/21 09:24 Quetiapine 25 Mg Tab PO 50 mg BID SAMI Administration Sertraline HCl 25 mg 02/13/21 12:00 02/15/21 09:31 Sertraline 25 Mg Tab PO 25 mg QDAY SAMI Administration Sodium Chloride 10 ml 02/12/21 22:00 02/15/21 09:32 Sodium Chloride 0.9% 10 Ml Flush Syringe IV 10 ml BID SAMI Administration Sodium Chloride 10 ml 02/12/21 21:28 Sodium Chloride 0.9% 10 Ml Flush Syringe IV PRN PRN LINE FLUSH Nutrition/Malnutrition Assess - Dietary Evaluation Nutrition/Malnutrition Findings: Nutrition Notes Start: 02/13/21 13:10 Freq: Status: Active Protocol: Document 02/15/21 17:16 SHANIA (Rec: 02/15/21 17:38 SHANIA [id number]) Nutrition Notes Initial or Follow up Assessment Current Diagnosis Diabetes,Hypertension, Respiratory Failure Other Pertinent Diagnosis Schizophrenia, Asthma, Cocaine dependence, Suicidal ideation . Current Diet Consistent Carbohydrate Diet ( since L 02/13). Labs/Tests 02/13: Na 136, Cl 97.3, CO2 19 , BUN 21, Glu 537, C-RP 2.7. Pertinent Medications 02/15: Insulin, others nutritionally unremarkable. Height 5 ft 9 in Weight 77.111 kg [place] Body Weight (kg) 72.72 BMI 25.1 Weight change and time frame No body weight change reported . Weight Status Appropriate Subjective/Other Information RD consult for routine F/U on Nutrition Education. Pt is not a candidate for Nutrition Education at the time. Percent of energy/protein needs met: Prescribed Consistent Carbohydrates Diet provides for energy/protein needs (2, 061 Kcal/91 g) during LOS. Burn Absent Trauma Absent GI Symptoms None Food Allergy No Skin Integrity/Comment Unspecified area of concern. Current % PO Good (75-100%) Minimum of two criteria No #1 Nutrition Diagnosis No nutrition diagnosis at this time Comments: Pt is not a candidate for Nutrition Education at the time due to other comorbidities. Is patient on ventilator? No Is Patient Ambulatory and/or Out of Bed Yes REE-([place]-St. Jeor-ambulatory/OOB) [ 2081.937 NUTR.[id number]] Calculation [facility] Additional Notes Protein: 1-1.2 g/Kg; 77-92 g/ day (from ABW + critical care) . Fluids: 1 ml/Kcal, or as per MD. Nutrition Intervention Change Diet Order: Continue CC Diet. Goal #1 Maintain body weight within +/ -3% of admission body weight during LOS. Goal #2 Reach and maintain acceptable chemistry lab values during LOS. Follow-Up By: 02/22/21 Additional Comments Continue monitoring food tolerance, %PO intake of meals , Hydration, and BM. On F/U evaluate conditions for Nutrition Education.
[2021-02-15] MEDS: ACETAMINOPHEN 325 MG TAB PO PRN (21:06)
[2021-02-16] MEDS ORDERED: QUEtiapine 25 MG TAB PO SCH (06:02)
[2021-02-16] MEDS: INSULIN REGULAR, HUMAN 100 UNITS/1 ML SUB-Q SCH ×4 (07:49→22:54)
[2021-02-16] MEDS: BUDESONIDE 0.25 MG/2 ML NEBU IH SCH ×2 (08:12→19:52)
[2021-02-16] MEDS: IPRATROPIUM/ALBUTEROL SULFATE 3 ML AMPUL.NEB IH SCH ×2 (08:12→19:52)
[2021-02-16] MEDS: metFORMIN XR 500MG TAB PO SCH ×2 (09:07→18:10)
[2021-02-16] MEDS: predniSONE 20 MG TAB PO SCH (09:07)
[2021-02-16] MEDS: QUEtiapine 100 MG TAB PO SCH ×2 (09:07→21:56)
[2021-02-16] MEDS: AZITHROMYCIN 250 MG TAB PO SCH (09:08)
[2021-02-16] MEDS: SERTRALINE 25 MG TAB PO SCH (09:08)
[2021-02-16] MEDS: HEPARIN 5,000 UNIT/1 ML VIAL SUB-Q SCH ×2 (09:08→21:56)
[2021-02-16] MEDS: FAMOTIDINE 20 MG TAB PO SCH ×2 (09:08→21:57)
[2021-02-16] MEDS: INSULIN LISPRO 100 UNIT/ML SUB-Q SCH ×3 (09:10→18:10)
[2021-02-16] MEDS: INSULIN GLARGINE 100 UNITS/ML SUB-Q SCH (09:15)
--- NOTE | 2021-02-16 12:55 | Progress Note ---
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 In the ER initial oxygen saturations were 84% on room air, Blood glucose was 400, UDS positive for cocaine. He says but for the past few days he's been feeling suicidal and hearing voices telling him to kill himself. Patient is not taking any psych medications at present. He used to take Zoloft and Seroquel. Patient admitted to the hospital for acute asthma exacerbation with respiratory failure, placed on a 1013 and psych consulted. Assessment and plan --Acute respiratory failure with hypoxia Patient was saturating at 84% on room air at the time of admission to the emergency room With treatment. Oxygen saturation came up to 91%. Patient to continue having nebulizer treatments and placed on IV Solu-Medrol and IV antibiotics. -- Asthma exacerbation Chest x-ray showed no acute process. Denies exposure to COVID-19. However ordered COVID-19 PCR test. Patient denies fever or chills. Patient is on DuoNebs [id number] and as needed, placed on IV antibiotics Change Solu-Medrol to prednisone for severe hyperglycemia Dyspnea and wheezing improved since admitted. -- IDDM, A1c 11.1 Uncontrolled likely from noncompliance Patient initiated on long-acting insulin and short-acting insulin AC Coverage with high-dose sliding scale Changed to IV Solu-Medrol to prednisone for severe hyperglycemia Added Metformin -- Hypertension Continue antihypertensives -- history of schizophrenia and suicidal ideations Paranoid and hearing voices telling him to kill himself, placed patient under 1013 Mental health consulted, following, recommending inpatient psych evaluation 1013 canceled by psych on now 02/14 as not suicidal anymore. Patient reported hearing voices telling him to look for people hiding under the bed Previously treated with Seroquel, increased dose from 50 to 100 mg twice daily Add Risperdal 4 mg nightly Patient is calm and cooperative --Cocaine abuse Urine drug screen positive for cocaine. Counseled about cocaine dependence -- DVT prophylaxis On anticoagulation and GI prophylaxis Disposition: Continue to have audible wheezes, will continue IV steroid and nebulizer breathing treatment. Patient has been stable following entered and discontinued. If clinically improves possible discharge tomorrow. Discussed with the nursing and CM staff Subjective Date of service: 02/16/21 Interval history: Patient seen and examined. Medical records and medication list reviewed. No acute event overnight noted by the RN. Patient denies any chest pain but continues to have wheezes even on resting 1013 discontinued, no mood swings noted Discussed plan of care at bedside with patient. Objective - Exam Narrative Exam: GENERAL: well-developed and well-nourished AAM lying on bed appeared to be in no discomfort. HEENT: Normocephalic. Atraumatic. No conjunctival congestion or icterus. Patient has moist mucous membranes. NECK: Supple. Trachea midline. CHEST/LUNGS: Positive wheezes auscultated bilaterally. no crackles or rhonchi. HEART/CARDIOVASCULAR: Regular in rate and rhythm. S1 and S2 positive. ABDOMEN: Abdomen is soft, nontender. Patient has normal bowel sounds. SKIN: There is no rash. Warm and dry. NEURO: No focal motor deficit. Follows command. MUSCULOSKELETAL: No joint effusion or tenderness. EXTRIMITY: No edema, no cyanosis or clubbing. PSYCH: Cooperative. - Constitutional Vitals: Vital Signs - 12hr 02/16/21 02/16/21 01:00 05:59 Temperature 97.7 F Pulse Rate 86 74 Respiratory 18 Rate Blood Pressure 122/85 O2 Sat by Pulse 95 Oximetry - Labs CBC & Chem 7: 02/13/21 04:54 02/15/21 13:48 Labs: Abnormal lab results 02/15/21 02/15/21 02/15/21 Range/Units 13:48 15:02 22:09 Glucose 137 H (75-100) mg/dL POC Glucose 250 H 298 H (70-105) mg/dL HEART Score - HEART Score Troponin: Troponin T < 0.010 ng/mL (0.00-0.029) 02/12/21 16:52
[2021-02-16] MEDS: ACETAMINOPHEN 325 MG TAB PO PRN (21:57)
[2021-02-16] MEDS ORDERED: risperiDONE 1 MG TAB PO SCH (22:00)
[2021-02-17] MEDS: BUDESONIDE 0.25 MG/2 ML NEBU IH SCH (08:35)
[2021-02-17] MEDS: IPRATROPIUM/ALBUTEROL SULFATE 3 ML AMPUL.NEB IH SCH (08:35)
--- NOTE | 2021-02-17 09:12 | Discharge Summary ---
Providers - Providers Date of Admission: 02/12/21 15:04 Date of discharge: 02/17/21 Attending physician: SHAMEKA MAYA 02/12/21 12:40 Consult to Mental Health [CONS] Stat Reason For Exam: SI, halluc 02/13/21 07:24 Consult to Dietitian/Nutrition [CONS] Routine Physician Instructions: Reason For Exam: Reason for Consult: Diet education 02/14/21 12:29 Consult to Case Management [CONS] Routine Services Needed at Discharge: Other Notified:: MOR Additional Physician Instructions: Per the patient's request Primary care physician: SAFEMAKER Hospitalization Condition: Undetermined Hospital course: 55-year-old male with 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 In the ER initial oxygen saturations were 84% on room air, Blood glucose was 400, UDS positive for cocaine. He says but for the past few days he's been feeling suicidal and hearing voices telling him to kill himself. Patient is not taking any psych medications at present. He used to take Zoloft and Seroquel. Patient admitted to the hospital for acute asthma exacerbation with respiratory failure, placed on a 1013 and psych consulted. Patient was admitted to medical floor with scheduled nebs, abx, iv steroids and supplemental O2 to keep O2 sat at 94%. CXR showed no infiltrates. Patients symptom improved with medical management. His psych medicine were adjusted and 1013 was discontinued. Patient was then discharged home in stable condition with outpt f/u. Disposition: HOME HEALTH CARE SERVICE Final Discharge Diagnosis (Prints w/discharge instructions): --Acute respiratory failure with hypoxia. -- Asthma exacerbation. -- IDDM, A1c 11.1. -- Hypertension. -- history of schizophrenia and suicidal ideations. --Cocaine abuse Time spent for discharge: 34 minutes Core Measure Documentation - Palliative Care Palliative Care/ Comfort Measures: Not Applicable - Core Measures Any of the following diagnoses?: none Exam - Physical Exam Narrative exam: GENERAL: well-developed and well-nourished AAM lying on bed appeared to be in no discomfort. HEENT: Normocephalic. Atraumatic. No conjunctival congestion or icterus. Patient has moist mucous membranes. NECK: Supple. Trachea midline. CHEST/LUNGS: few Positive wheezes auscultated bilaterally. no crackles or rhonchi. HEART/CARDIOVASCULAR: Regular in rate and rhythm. S1 and S2 positive. ABDOMEN: Abdomen is soft, nontender. Patient has normal bowel sounds. SKIN: There is no rash. Warm and dry. NEURO: No focal motor deficit. Follows command. MUSCULOSKELETAL: No joint effusion or tenderness. EXTRIMITY: No edema, no cyanosis or clubbing. PSYCH: Cooperative. - Constitutional Vitals: Temp Pulse Resp BP Pulse Ox 97.2 F L 94 H 18 84/59 95 02/17/21 06:06 02/17/21 08:35 02/17/21 08:35 02/17/21 06:06 02/17/21 06:06 Plan Activity: advance as tolerated Weight Bearing Status: Weight Bear as Tolerated Diet: low fat, low salt Care Plan Goals: Professional and Agency Contacts To help Resolve Crises(19/09) [place] Crisis Line: Suicide Prevention Line: Crisis Text Line: Text START to [phone] Emergency: 911 Outpatient COMMUNITY Behavioral Health Resources: [facility]: [facility] [address] [place], [place] [address] [facility] [address] [place] [address] [facility] - [address] [place] [address] Monday thru Monday - 8am - 5pm [facility] Address: [address] [place] [address] [facility]: [facility] Address: [address] [place] [address] Monday thru Monday- 7am-2pm [facility] Address: [address] [place] [address] Monday thru Monday: 8:30AM-5PM Follow up with: PRIMARY CARE, [Primary Care Provider] - 3-5 Days Prescriptions: risperiDONE [RisperDAL] 4 mg PO QHS #14 tablet predniSONE [Deltasone] 40 mg PO QDAY #5 tablet metFORMIN XR [Glucophage XR] 500 mg PO BIDDIAB #60 tablet Lispro Insulin [HumaLOG] 10 unit SUB-Q AC 30 Days Insulin Glargine [Lantus VIAL] 30 units SUB-Q QAM 30 Days Albuterol Mdi (or & Nicu Only) [ProAir HFA Inhaler] 2 puff IH QID PRN #8.5 gram PRN Reason: Shortness Of Breath Quetiapine Fumarate [SEROquel] 50 mg PO BID #60 tab Budesonide/Formoterol Fumarate [Symbicort 160-4.5 Mcg Inhaler] 10.2 gm IH BID 30 Days Azithromycin [Zithromax TAB] 250 mg PO QDAY #3 tablet Sertraline [Zoloft] 25 mg PO QDAY #30 tab Other Discharge Orders: Glucometer (Amb) Location: None Selected Glucometer supplies[Amb] Location: None Selected
[2021-02-17] MEDS: INSULIN LISPRO 100 UNIT/ML SUB-Q SCH ×2 (09:45→13:15)
[2021-02-17] MEDS: HEPARIN 5,000 UNIT/1 ML VIAL SUB-Q SCH (09:54)
[2021-02-17] MEDS: SERTRALINE 25 MG TAB PO SCH (09:55)
[2021-02-17] MEDS: INSULIN GLARGINE 100 UNITS/ML SUB-Q SCH (09:55)
[2021-02-17] MEDS: FAMOTIDINE 20 MG TAB PO SCH (09:55)
[2021-02-17] MEDS: predniSONE 20 MG TAB PO SCH (09:55)
[2021-02-17] MEDS: QUEtiapine 100 MG TAB PO SCH (09:55)
[2021-02-17] MEDS: AZITHROMYCIN 250 MG TAB PO SCH (09:55)
[2021-02-17] MEDS: metFORMIN XR 500MG TAB PO SCH (09:55)
[2021-02-17] MEDS: INSULIN REGULAR, HUMAN 100 UNITS/1 ML SUB-Q SCH ×2 (10:08→13:07)
[2021-02-17 14:18] VITALS: BP 96/67
== END 2021-02-17 16:39 | disposition home or self-care (01) | DRG 189 ==
LOC: ED 12:08 → 4A 15:04 → 3A 21:33
PROVIDERS: ADMIT Internal Medicine; ATTEND Internal Medicine
DX: J96.01 Acute respiratory failure with hypoxia (principal); R45.851 Suicidal ideations; J45.901 Unspecified asthma with (acute) exacerbation; F14.20 Cocaine dependence, uncomplicated; E11.9 Type 2 diabetes mellitus without complications; E11.65 Type 2 diabetes mellitus with hyperglycemia; F20.9 Schizophrenia, unspecified; I10 Essential (primary) hypertension; Z20.822 Contact with and (suspected) exposure to COVID-19
CPT/HCPCS: 36415; 71045; 80048; 80053; 80307; 80320; 81001; 82947; 82962; 83036; 83735; 84443; 84484; 85007; 85025; 86140; 93005; 94640; 94644; 99291; G0378; Q0162; Q9967; G0480; J1644; J1815; J1956; J2930; J3475; J7030; J7512; U0003

== ENCOUNTER 2021-02-25 21:48 | Emergency (ER) | payer OTHER, SELFPAY ==
[2021-02-25] MEDS ORDERED: predniSONE 20 MG TAB PO ONE (22:32)
[2021-02-25 22:53] LABS: Bilirubin,Urine NEG (Negative); Blood,Urine NEG (Negative); Color,Urine Yellow (Yellow); Mucus,Urine 3+ /HPF; Protein,Urine <15 mg/dL mg/dL (Negative); RBC,Urine < 1.0 /HPF (0.0-6.0)
[2021-02-25 22:57] LABS: Amphetamine Screen,Urine PRESUMPTIVE NEGATIVE; Benzodiazepines Screen,Urine PRESUMPTIVE NEGATIVE; Cannabinoid Screen,Urine PRESUMPTIVE NEGATIVE; Cocaine Screen,Urine PRESUMPTIVE POSITIVE; Methadone Screen,Urine PRESUMPTIVE NEGATIVE; Opiate Screen,Urine PRESUMPTIVE NEGATIVE
[2021-02-25] MEDS ORDERED: ACETAMINOPHEN 500 MG TAB PO ONE (23:08)
[2021-02-25] MEDS ORDERED: ALBUTEROL 8.5 GM MDI INHALATION IH PRN (23:08)
--- NOTE | 2021-02-25 23:26 | XRay Report ---
CHEST 1 VIEW 02/25/2021 10:39 PM INDICATION / CLINICAL INFORMATION: cough, wheezing. COMPARISON: 02/12/2021 FINDINGS: SUPPORT DEVICES: None. HEART / MEDIASTINUM: No significant abnormality. LUNGS / PLEURA: No significant pulmonary or pleural abnormality. No pneumothorax. ADDITIONAL FINDINGS: No significant additional findings. IMPRESSION: 1. No acute findings. Signer Name: Florentino Claudio DO Signed: 02/25/2021 11:22 PM Workstation Name: [id number]
[2021-02-25 23:33] LABS: Basophils % (Auto) 0.7 % (0.0-1.8); Eosinophils # (Auto) 0.1 K/mm3 (0.0-0.4); Eosinophils % (Auto) 1.6 % (0.0-4.3); Hematocrit 49.2 % (35.5-45.6); Hemoglobin 15.5 gm/dl (11.8-15.2); Lymphocytes # (Auto) 1.1 K/mm3 (1.2-5.4); Lymphocytes % (Auto) 22.8 % (13.4-35.0); Mean Corpuscular HGB Conc 31 % (32-34); Mean Corpuscular Volume 88 fl (84-94); Monocytes # (Auto) 0.4 K/mm3 (0.0-0.8); Monocytes % (Auto) 9.2 % (0.0-7.3); Platelet Count 174 K/mm3 (140-440); Red Blood Count 5.57 M/mm3 (3.65-5.03); Red Cell Distribution Width 14.6 % (13.2-15.2)
[2021-02-25 23:50] LABS: BUN/Creatinine Ratio 8; Blood Urea Nitrogen 8 mg/dL (9-20); Calcium 8.6 mg/dL (8.4-10.2); Hemolysis Index 69
[2021-02-26] MEDS: metFORMIN 500 MG TAB PO SCH ×2 (01:03→10:41)
--- NOTE | 2021-02-26 04:45 | Emergency Department Report ---
<SAGE SAMSON - Last Filed: 02/26/21 04:39> ED Psych HPI - General Chief Complaint: Psych Stated Complaint: HEARING VOICES, MED REFILL Time Seen by Provider: 02/25/21 22:31 Source: EMS Mode of arrival: Stretcher - History of Present Illness Initial Comments: Patient is a 55-year-old [place] male with a past medical history of schizophrenia states he is hearing voices. Patient is having command hallucinations and the voices are telling him to harm other people himself. States he has not acted on any of these voices. Patient denies any plan. Denies alcohol or drug use. Besides these complaints the patient states he does have a history of asthma and does not have albuterol inhaler and he states he has been wheezing. Denies cough fevers chills or body aches. - Related Data Previous Rx's Medication Instructions Recorded Last Taken Type Quetiapine Fumarate [SEROquel] 50 mg PO BID #60 tab 02/14/21 Unknown Rx Sertraline [Zoloft] 25 mg PO QDAY #30 tab 02/14/21 Unknown Rx Albuterol Mdi (or & Nicu Only) 2 puff IH QID PRN #8.5 gram 02/17/21 Unknown Rx [ProAir HFA Inhaler] Azithromycin [Zithromax TAB] 250 mg PO QDAY #3 tablet 02/17/21 Unknown Rx Budesonide/Formoterol Fumarate 10.2 gm IH BID 30 Days 02/17/21 Unknown Rx [Symbicort 160-4.5 Mcg Inhaler] Insulin Glargine [Lantus VIAL] 30 units SUB-Q QAM 30 Days 02/17/21 Unknown Rx Lispro Insulin [HumaLOG] 10 unit SUB-Q AC 30 Days 02/17/21 Unknown Rx metFORMIN XR [Glucophage XR] 500 mg PO BIDDIAB #60 tablet 02/17/21 Unknown Rx predniSONE [Deltasone] 40 mg PO QDAY #5 tablet 02/17/21 Unknown Rx risperiDONE [RisperDAL] 4 mg PO QHS #14 tablet 02/17/21 Unknown Rx Allergies Allergy/AdvReac Type Severity Reaction Status Date / Time No Known Allergies Allergy Verified 02/25/21 23:25 ED Review of Systems Comment: All other systems reviewed and negative ED Past Medical Hx - Past Medical History Hx Diabetes: Yes Hx Asthma: Yes - Surgical History Additional Surgical History: ARM - Social History Smoking Status: Former Smoker - Medications Home Medications: Home Medications Medication Instructions Recorded Confirmed Last Taken Type Quetiapine Fumarate [SEROquel] 50 mg PO BID #60 tab 02/14/21 Unknown Rx Sertraline [Zoloft] 25 mg PO QDAY #30 tab 02/14/21 Unknown Rx Albuterol Mdi (or & Nicu Only) 2 puff IH QID PRN #8.5 gram 02/17/21 Unknown Rx [ProAir HFA Inhaler] Azithromycin [Zithromax TAB] 250 mg PO QDAY #3 tablet 02/17/21 Unknown Rx Budesonide/Formoterol Fumarate 10.2 gm IH BID 30 Days 02/17/21 Unknown Rx [Symbicort 160-4.5 Mcg Inhaler] Insulin Glargine [Lantus VIAL] 30 units SUB-Q QAM 30 Days 02/17/21 Unknown Rx Lispro Insulin [HumaLOG] 10 unit SUB-Q AC 30 Days 02/17/21 Unknown Rx metFORMIN XR [Glucophage XR] 500 mg PO BIDDIAB #60 tablet 02/17/21 Unknown Rx predniSONE [Deltasone] 40 mg PO QDAY #5 tablet 02/17/21 Unknown Rx risperiDONE [RisperDAL] 4 mg PO QHS #14 tablet 02/17/21 Unknown Rx ED Physical Exam - General Limitations: No Limitations General appearance: alert, in no apparent distress - Head Head exam: Present: atraumatic, normocephalic - Eye Eye exam: Present: normal appearance - ENT ENT exam: Present: mucous membranes moist - Neck Neck exam: Present: normal inspection - Respiratory Respiratory exam: Present: wheezes. Absent: normal lung sounds bilaterally, respiratory distress, rales, rhonchi - Cardiovascular Cardiovascular Exam: Present: regular rate, normal rhythm, normal heart sounds. Absent: systolic murmur, diastolic murmur, rubs, gallop - GI/Abdominal GI/Abdominal exam: Present: soft, normal bowel sounds. Absent: distended, tenderness, guarding - Rectal Rectal exam: Present: deferred - Extremities Exam Extremities exam: Present: normal inspection - Back Exam Back exam: Present: normal inspection - Neurological Exam Neurological exam: Present: alert, oriented X3 - Psychiatric Psychiatric exam: Present: normal affect, normal mood - Skin Skin exam: Present: warm, dry, intact, normal color. Absent: rash ED Course - Reevaluation(s) Reevaluation #1: 02/26/21 04:45 Patient given a albuterol MDI and states his shortness of breath has improved. Does have a slight elevation of his blood glucose and was started on Metformin. No evidence of DKA and the patient can have outpatient work-up for the elevated glucose.Patient is medically cleared at this time. ED Medical Decision Making - Lab Data Result diagrams: 02/25/21 22:54 02/25/21 22:54 Lab Results 02/25/21 02/25/21 02/25/21 Range/Units 22:30 22:30 22:54 WBC 4.8 (4.5-11.0) K/mm3 RBC 5.57 H (3.65-5.03) M/mm3 Hgb 15.5 H (11.8-15.2) gm/dl Hct 49.2 H (35.5-45.6) % MCV 88 (84-94) fl MCH 28 (28-32) pg MCHC 31 L (32-34) % RDW 14.6 (13.2-15.2) % Plt Count 174 (140-440) K/mm3 Lymph % (Auto) 22.8 (13.4-35.0) % [place] % (Auto) 9.2 H (0.0-7.3) % Eos % (Auto) 1.6 (0.0-4.3) % Baso % (Auto) 0.7 (0.0-1.8) % Lymph # (Auto) 1.1 L (1.2-5.4) K/mm3 [place] # (Auto) 0.4 (0.0-0.8) K/mm3 Eos # (Auto) 0.1 (0.0-0.4) K/mm3 Baso # (Auto) 0.0 (0.0-0.1) K/mm3 Seg Neutrophils % 65.7 (40.0-70.0) % Seg Neutrophils # 3.2 (1.8-7.7) K/mm3 Sodium (137-145) mmol/L Potassium (3.6-5.0) mmol/L Chloride (98-107) mmol/L Carbon Dioxide (22-30) mmol/L Anion Gap mmol/L BUN (9-20) mg/dL Creatinine (0.8-1.3) mg/dL Estimated GFR ml/min BUN/Creatinine Ratio % Glucose (75-100) mg/dL Calcium (8.4-10.2) mg/dL Urine Color Yellow (Yellow) Urine Turbidity Clear (Clear) Urine pH 5.0 (5.0-7.0) Ur Specific [place] 1.018 (1.003-1.030) Urine Protein <15 mg/dl (Negative) mg/dL Urine Glucose (UA) >=500 (Negative) mg/dL Urine Ketones Tr (Negative) mg/dL Urine Blood Neg (Negative) Urine Nitrite Neg (Negative) Urine Bilirubin Neg (Negative) Urine Urobilinogen 2.0 (<2.0) mg/dL Ur Leukocyte Esterase Neg (Negative) Urine WBC (Auto) 2.0 (0.0-6.0) /HPF Urine RBC (Auto) < 1.0 (0.0-6.0) /HPF U Epithel Cells (Auto) < 1.0 (0-13.0) /HPF Urine Mucus 3+ /HPF Salicylates (2.8-20.0) mg/dL Urine Opiates Screen Presumptive negative Urine Methadone Screen Presumptive negative Acetaminophen (10.0-30.0) ug/mL Ur Barbiturates Screen Presumptive negative Ur Phencyclidine Scrn Presumptive negative Ur Amphetamines Screen Presumptive negative U Benzodiazepines Scrn Presumptive negative Urine Cocaine Screen Presumptive positive U Marijuana (THC) Screen Presumptive negative Drugs of Abuse Note Disclamer Plasma/Serum Alcohol (0-0.07) % 02/25/21 02/25/21 02/25/21 Range/Units 22:54 22:54 22:54 WBC (4.5-11.0) K/mm3 RBC (3.65-5.03) M/mm3 Hgb (11.8-15.2) gm/dl Hct (35.5-45.6) % MCV (84-94) fl MCH (28-32) pg MCHC (32-34) % RDW (13.2-15.2) % Plt Count (140-440) K/mm3 Lymph % (Auto) (13.4-35.0) % [place] % (Auto) (0.0-7.3) % Eos % (Auto) (0.0-4.3) % Baso % (Auto) (0.0-1.8) % Lymph # (Auto) (1.2-5.4) K/mm3 [place] # (Auto) (0.0-0.8) K/mm3 Eos # (Auto) (0.0-0.4) K/mm3 Baso # (Auto) (0.0-0.1) K/mm3 Seg Neutrophils % (40.0-70.0) % Seg Neutrophils # (1.8-7.7) K/mm3 Sodium 136 L (137-145) mmol/L Potassium 3.7 (3.6-5.0) mmol/L Chloride 94.9 L (98-107) mmol/L Carbon Dioxide 24 (22-30) mmol/L Anion Gap 21 mmol/L BUN 8 L (9-20) mg/dL Creatinine 1.0 (0.8-1.3) mg/dL Estimated GFR > 60 ml/min BUN/Creatinine Ratio 8 % Glucose 258 H (75-100) mg/dL Calcium 8.6 (8.4-10.2) mg/dL Urine Color (Yellow) Urine Turbidity (Clear) Urine pH (5.0-7.0) Ur Specific [place] (1.003-1.030) Urine Protein (Negative) mg/dL Urine Glucose (UA) (Negative) mg/dL Urine Ketones (Negative) mg/dL Urine Blood (Negative) Urine Nitrite (Negative) Urine Bilirubin (Negative) Urine Urobilinogen (<2.0) mg/dL Ur Leukocyte Esterase (Negative) Urine WBC (Auto) (0.0-6.0) /HPF Urine RBC (Auto) (0.0-6.0) /HPF U Epithel Cells (Auto) (0-13.0) /HPF Urine Mucus /HPF Salicylates < 0.3 L (2.8-20.0) mg/dL Urine Opiates Screen Urine Methadone Screen Acetaminophen 5.0 L (10.0-30.0) ug/mL Ur Barbiturates Screen Ur Phencyclidine Scrn Ur Amphetamines Screen U Benzodiazepines Scrn Urine Cocaine Screen U Marijuana (THC) Screen Drugs of Abuse Note Plasma/Serum Alcohol (0-0.07) % 02/25/21 Range/Units 22:54 WBC (4.5-11.0) K/mm3 RBC (3.65-5.03) M/mm3 Hgb (11.8-15.2) gm/dl Hct (35.5-45.6) % MCV (84-94) fl MCH (28-32) pg MCHC (32-34) % RDW (13.2-15.2) % Plt Count (140-440) K/mm3 Lymph % (Auto) (13.4-35.0) % [place] % (Auto) (0.0-7.3) % Eos % (Auto) (0.0-4.3) % Baso % (Auto) (0.0-1.8) % Lymph # (Auto) (1.2-5.4) K/mm3 [place] # (Auto) (0.0-0.8) K/mm3 Eos # (Auto) (0.0-0.4) K/mm3 Baso # (Auto) (0.0-0.1) K/mm3 Seg Neutrophils % (40.0-70.0) % Seg Neutrophils # (1.8-7.7) K/mm3 Sodium (137-145) mmol/L Potassium (3.6-5.0) mmol/L Chloride (98-107) mmol/L Carbon Dioxide (22-30) mmol/L Anion Gap mmol/L BUN (9-20) mg/dL Creatinine (0.8-1.3) mg/dL Estimated GFR ml/min BUN/Creatinine Ratio % Glucose (75-100) mg/dL Calcium (8.4-10.2) mg/dL Urine Color (Yellow) Urine Turbidity (Clear) Urine pH (5.0-7.0) Ur Specific [place] (1.003-1.030) Urine Protein (Negative) mg/dL Urine Glucose (UA) (Negative) mg/dL Urine Ketones (Negative) mg/dL Urine Blood (Negative) Urine Nitrite (Negative) Urine Bilirubin (Negative) Urine Urobilinogen (<2.0) mg/dL Ur Leukocyte Esterase (Negative) Urine WBC (Auto) (0.0-6.0) /HPF Urine RBC (Auto) (0.0-6.0) /HPF U Epithel Cells (Auto) (0-13.0) /HPF Urine Mucus /HPF Salicylates (2.8-20.0) mg/dL Urine Opiates Screen Urine Methadone Screen Acetaminophen (10.0-30.0) ug/mL Ur Barbiturates Screen Ur Phencyclidine Scrn Ur Amphetamines Screen U Benzodiazepines Scrn Urine Cocaine Screen U Marijuana (THC) Screen Drugs of Abuse Note Plasma/Serum Alcohol < 0.01 (0-0.07) % - Radiology Data CHEST 1 VIEW 02/25/2021 10:39 PM INDICATION / CLINICAL INFORMATION: cough, wheezing. COMPARISON: 02/12/2021 FINDINGS: SUPPORT DEVICES: None. HEART / MEDIASTINUM: No significant abnormality. LUNGS / PLEURA: No significant pulmonary or pleural abnormality. No pneumothorax. ADDITIONAL FINDINGS: No significant additional findings. IMPRESSION: 1. No acute findings. Signer Name: Florentino Claudio DO Signed: 02/25/2021 11:22 PM Workstation Name: [id number] ED Disposition Clinical Impression: Suicidal ideations Cocaine dependence Qualifiers: Substance use status: uncomplicated Qualified Code(s): F14.20 - Cocaine dependence, uncomplicated Disposition: 01 HOME / SELF CARE / HOMELESS Condition: Stable Additional Instructions: Professional and Agency Contacts To help [facility] (19/09) [place] Crisis Line: Suicide Prevention Line: Crisis Text Line: Text START to 368673 Emergency: 911 Outpatient COMMUNITY Behavioral Health Resources: LYNB: [facility] [address], [place] [address] [facility] [address] [place] [address] Monday thru Monday - 8am - 5pm Call to schedule an assessment for mental health and substance abuse programs [facility] Address: [address] [place] [address] Monday thru Monday- 7am-2pm [facility] Address: [address] [place] [address] Monday thrmonday: 8:30AM-5PM Referrals: PRIMARY CAREMD [Primary Care Provider] - 3-5 Days <AMA SAMSON - Last Filed: 02/26/21 14:09> ED Review of Systems ROS: Stated complaint: HEARING VOICES, MED REFILL Other details as noted in HPI ED Course Vital Signs 02/25/21 02/25/21 02/26/21 23:03 23:15 03:11 Temperature 98.8 F 98.6 F Pulse Rate 90 90 Respiratory 18 18 Rate Blood Pressure 100/60 96/64 [Left] O2 Sat by Pulse 97 97 95 Oximetry 02/26/21 12:08 Temperature 98.6 F Pulse Rate 98 H Respiratory 18 Rate Blood Pressure 100/63 [Left] O2 Sat by Pulse 95 Oximetry ED Medical Decision Making - Lab Data Result diagrams: 02/25/21 22:54 02/25/21 22:54 - Medical Decision Making Patient dc'd home. CLeared by psychiatry team. Critical care attestation.: If time is entered above; I have spent that time in minutes in the direct care of this critically ill patient, excluding procedure time. ED Disposition Is pt being admited?: No Does the pt Need Aspirin: No
--- NOTE | 2021-02-26 10:31 | Consultation ---
History of Present Illness - Reason for Consult Consult date: 02/26/21 Reason for consult: hallucinations - History of Present Psychiatric Illness The patient was seen today. He was also seen a week ago. He is calm, and cooperative. The patient says he was hearing voices telling him to hurt other people. He says "but that went away." The patient says "I called the police and came here." He says "I never acted on it, just thought about it." I discussed with the patient the need to take his medications and establish primary outpatient. The patient says he doesn't have any family because his mother . He says he can't work because of his diabetes. The patient denies any illicit drug use or alcohol, but is positive for cocaine. REVIEW OF SYSTEMS Constitutional: Negative for weight loss ENT: Negative for stridor Respiratory: Negative for cough or hemoptysis All other systems reviewed and are negative MENTAL STATUS EXAMINATION General Appearance and Behavior: Age appropriate, dressed appropriately, calm a nd uncooperative Cooperation: cooperative Psychomotor Behavior: psychomotor normal Mood: depressed Affect and affective range: Euthymic Thought Process: goal directed Thought Content: denies at present Speech: Normal volume, Regular rate and rhythm, Suicidal Ideation: Denies Homicidal Ideation: states have subsided Hallucinations: Auditory earlier, but denies at present Delusions: None elicited Impulse Control: Unimpaired Insight and Judgment: limited insight and fair judgment, Memory: Normal Attention: divided Orientation: Alert, oriented Assessment and Plan (1) Hx Schizophrenia (2) Cocaine Use Disorder Treatment plan Continue previous meds prescribed Medical: per primary Risks, benefits and alternatives of medications discussed with the patient, questions answered and consent obtained from patient. PSYCHOTHERAPY: Supportive psychotherapy provided MEDICAL: Per primary team DELIRIUM PRECAUTIONS: Please re-orient patient frequently, keep lights on during the day, and minimize benzodiazepines and opiates as these medications could worsen patient's confusion. 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 The patient understands that if SI/HI return he is to seek immediate assistance The cotton roll packer to give the patient all necessary resources, including drug rehab and CBT The patient should comply with medical regimen Night Worker to give the patient resources for senior care, group homes and transportation pass if needed. He is to abstain from all illicit drug use. The patient to follow up in 7 to 14 days upon discharge Will sign off. Thank you for the consult. Please contact with any questions and/or concerns. Case staffed with Dr. Dodd Medications and Allergies Allergies Allergy/AdvReac Type Severity Reaction Status Date / Time No Known Allergies Allergy Verified 02/25/21 23:25 Home Medications Medication Instructions Recorded Confirmed Last Taken Type Quetiapine Fumarate [SEROquel] 50 mg PO BID #60 tab 02/14/21 Unknown Rx Sertraline [Zoloft] 25 mg PO QDAY #30 tab 02/14/21 Unknown Rx Albuterol Mdi (or & Nicu Only) 2 puff IH QID PRN #8.5 gram 02/17/21 Unknown Rx [ProAir HFA Inhaler] Azithromycin [Zithromax TAB] 250 mg PO QDAY #3 tablet 02/17/21 Unknown Rx Budesonide/Formoterol Fumarate 10.2 gm IH BID 30 Days 02/17/21 Unknown Rx [Symbicort 160-4.5 Mcg Inhaler] Insulin Glargine [Lantus VIAL] 30 units SUB-Q QAM 30 Days 02/17/21 Unknown Rx Lispro Insulin [HumaLOG] 10 unit SUB-Q AC 30 Days 02/17/21 Unknown Rx metFORMIN XR [Glucophage XR] 500 mg PO BIDDIAB #60 tablet 02/17/21 Unknown Rx predniSONE [Deltasone] 40 mg PO QDAY #5 tablet 02/17/21 Unknown Rx risperiDONE [RisperDAL] 4 mg PO QHS #14 tablet 02/17/21 Unknown Rx Active Meds: Active Medications Albuterol (Albuterol 8.5 Gm Mdi Inhalation) 2 puff IH Q4HRT PRN PRN Reason: Shortness Of Breath Last Admin: 02/26/21 01:04 Dose: 2 puff Documented by: Metformin HCl (Metformin 500 Mg Tab) 500 mg PO BIDDIAB SAMI Last Admin: 02/26/21 01:03 Dose: 500 mg Documented by: Mental Status Exam - Vital signs Last Vital Signs Temp 98.6 F 02/26/21 03:11 Pulse 90 02/26/21 03:11 Resp 18 02/26/21 03:11 BP 96/64 02/26/21 03:11 Pulse Ox 95 02/26/21 03:11 Results Result Diagrams: 02/25/21 22:54 02/25/21 22:54 Abnormal lab results 02/25/21 02/25/21 02/25/21 Range/Units 22:54 22:54 22:54 RBC 5.57 H (3.65-5.03) M/mm3 Hgb 15.5 H (11.8-15.2) gm/dl Hct 49.2 H (35.5-45.6) % MCHC 31 L (32-34) % [place] % (Auto) 9.2 H (0.0-7.3) % Lymph # (Auto) 1.1 L (1.2-5.4) K/mm3 Sodium 136 L (137-145) mmol/L Chloride 94.9 L (98-107) mmol/L BUN 8 L (9-20) mg/dL Glucose 258 H (75-100) mg/dL Salicylates < 0.3 L (2.8-20.0) mg/dL Acetaminophen (10.0-30.0) ug/mL 02/25/21 Range/Units 22:54 RBC (3.65-5.03) M/mm3 Hgb (11.8-15.2) gm/dl Hct (35.5-45.6) % MCHC (32-34) % [place] % (Auto) (0.0-7.3) % Lymph # (Auto) (1.2-5.4) K/mm3 Sodium (137-145) mmol/L Chloride (98-107) mmol/L BUN (9-20) mg/dL Glucose (75-100) mg/dL Salicylates (2.8-20.0) mg/dL Acetaminophen 5.0 L (10.0-30.0) ug/mL All other labs normal.
[2021-02-26 12:09] VITALS: BP 100/63
== END 2021-02-26 16:23 | disposition home or self-care (01) ==
LOC: ED 21:48
DX: U07.1 COVID-19 (principal); R45.851 Suicidal ideations; F14.20 Cocaine dependence, uncomplicated; E11.9 Type 2 diabetes mellitus without complications; J45.909 Unspecified asthma, uncomplicated; Z98.890 Other specified postprocedural states; Z87.891 Personal history of nicotine dependence
CPT/HCPCS: 36415; 71045; 80048; 80307; 81001; 85025; 94640; 99285; J7512; U0003; 80320; G0480